=== PATIENT | male | born 1950 | race Caucasian/White ===

== ENCOUNTER 2024-02-02 09:48 | Outpatient (AMB) | payer MEDICARE, SELFPAY ==
--- NOTE | 2024-02-02 10:02 | A.OFFPC_ITS ---
Vital Signs 02/02/24 10:05 Height 5 ft 9 in Weight 175 lb BMI 25.8 BP 128/68 Blood Pressure Location Lt brachial Position Sitting Pulse 71 Pulse Source Pulse Oximeter Pulse Oximetry (%) 95 Oxygen Delivery Method Room Air Intake Visit Reasons: [facility] est care Intake Note: Pt is here today as a New Patient to est care Allergies No Known Allergies Allergy (Verified 02/02/24 10:29) Medication List - Last Reconciled 02/06/24 by Ana Maria Ga MD amlodipine 5 mg PO DAILY ascorbic acid (vitamin C) 500 mg PO DAILY atorvastatin 20 mg PO DAILY azelastine 0.05% drps ophthalmic (eye) calcium brf-zio-S2-Zn-copyright expert-la [phone] bu-xk-mizr-mg 1 tab PO DAILY cholecalciferol (vitamin D3) 25 mcg PO DAILY choline 800 mg PO hydrochlorothiazide 25 mg PO DAILY sertraline 50 mg PO DAILY trazodone 50 mg PO BEDTIME vit C-vit O-Fn-Cg-lutein-zeax 250 mg-200 unit -12.5 mg-1 mg (ICaps AREDS2 (copper citrate)) 1 tab PO BID vitamin B complex 1 tab PO DAILY vitamin E (dl, acetate) 45 mg PO DAILY Tobacco use date assessed: 02/02/24 Fall risk assessment: No Falls in past year Last assessed Fall Risk: 02/02/24 Dental Screening Dental Screen Date: 02/02/24 Did you have a dental visit in the last 12 months?: Yes Did you have a dental problem in the last 6 months where you did not have access to dental care?: No Was dental information given to patient?: Patient has dentist HPI [facility] est care HPI Details 73-year-old male, new to practice, here to establish care with a new PCP. Has hypertension, hyperlipidemia, seasonal allergie, and anxiety depression, currently controlled on present medications. Feels well with no complaints at present time [facility] Medical History (Updated 02/02/24 @ 10:59 by Ana Maria Ga MD) History of right inguinal hernia Anxiety and depression Hyperlipidemia Essential hypertension Surgical History (Updated 02/02/24 @ 10:39 by Ana Maria Ga MD) Hx of colonoscopy Hx of inguinal herniorrhaphy History of appendectomy History of left knee replacement Family History (Updated 02/02/24 @ 10:36 by Ana Maria Ga MD) Father Congenital heart disease Acute myocardial infarction Mother Systemic lupus erythematosus Osteoporosis Social History Housing: House Patient Tobacco Use Status: Former Tobacco user e-Cigarette/Vaping Use: Never Used service: Yes Current occupational status: retired Cognitive needs: No Hearing needs: No Vision needs: Yes Questionnaire PHQ-9 Over the last 2 weeks, how often have you been bothered by any of the following problems? 1. Little interest or pleasure in doing things: not at all 2. Feeling down, depressed, or hopeless: not at all 3. Trouble falling or staying asleep, or sleeping too much: not at all 4. Feeling tired or having little energy: several days 5. Poor appetite or overeating: not at all 6. Feeling bad about yourself - or that you are a failure or have let yourself or your family down: not at all 7. Trouble concentrating on things, such as reading the newspaper or watching television: not at all 8. Moving or speaking so slowly that other people could have noticed. Or the opposite - being so fidgety or restless that you have been moving around a lot more than usual: not at all 9. Thoughts that you would be better off or of hurting yourself in some way: not at all Total score: 1 Depression Screening Interpretation: Negative (Depression controlled on sertra line) Depression Screening Done: Yes 60744 - PHQ-9 Billing: Yes Source: Developed by Drs. Akira Dominguez, Cristiane Landin, Michael Velez and colleagues, with an educational bo from [employer]. Thrive Questionnaire Date Thrive assessed: 02/02/24 I am a: Patient What is your living situation today?: I have a steady place to live Within the past 12 months, did the food you bought not last and you didn't have the money to get more?: Never true Within the past 12 months, did you worry whether your food would run out before you got money to buy more?: Never true Do you have trouble paying for medicines?: No Do you have trouble getting transportation to medical appointments?: No Do you have trouble paying your heating and electricity bill?: No Do you have trouble taking care of your child, family member or friend?: No Do you have trouble with day-to-day activities such as bathing, preparing meals, shopping, managing finances, etc.?: No Are you currently unemployed and looking for a job?: No Are you interested in more education?: No THRIVE Score: 0 AUDIT C Alcohol Use Questionnaire (AUDIT-C) 1. How often do you have a drink containing alcohol?: Never Total Score: 0 DEMI-7 AMB Questionnaire DEMI-7 Date DEMI - 7 assessed: 02/02/24 Feeling nervous, anxious, or on edge: 0 = Not at all Not being able to stop or control worryin = Not at all Worrying too much about different things: 0 = Not at all Trouble relaxin = Not at all Being so restless that it is hard to sit still: 0 = Not at all Becoming easily annoyed or irritable: 0 = Not at all Feeling afraid as if something awful might happen: 0 = Not at all Total DEMI-7 score (0-4 normal; 5-9 mild; 10-14 moderate; 15-21 severe): 0 Source: Developed by Drs. Akira Dominguez, Cristiane Landin, Michael Velez and colleagues, with an educational bo from [employer]. DEMI-7 Assessment Billing DEMI-7 Assessment Tool: DEMI-7 Assessment 95626 Review of Systems Const Denies body aches, Denies fever(s), Denies headache(s) and Denies weakness Eyes Denies change in vision ENT Denies dizziness, Denies headache(s), Denies nasal congestion, Denies nasal discharge and Denies sore throat Card Denies chest pain, Denies lightheadedness, Denies palpitations and Denies dyspnea Resp Denies chest congestion, Denies cough, Denies dyspnea and Denies wheezing GI Denies abdominal pain, Denies change in bowel habits and Denies heartburn Denies hematuria, Denies difficulty urinating, Denies dysuria, Denies urinary frequency and Denies urinary urgency Musc Reports no additional complaints Skin/Breast Denies breast pain, Denies breast mass, Denies lesions and Denies rash Neuro Denies dizziness, Denies headache(s) and Denies weakness Psych Reports no additional complaints Endo Denies polydipsia, Denies polyuria and Denies palpitations Carson/Lymph Denies easy bruising Aller/Immun Denies seasonal rhinorrhea and Denies wheezing Physical exam (Primary Care) Vital Signs: Last Vital Signs Pulse 71 02/02/24 10:05 BP 128/68 02/02/24 10:05 Pulse Ox 95 02/02/24 10:05 Oxygen Delivery Method Room Air 02/02/24 10:05 BMI result Body Mass Index 25.8 Tobacco/Smoking Status: Tobacco use Status Tobacco use date assessed 02/02/24 02/02/24 10:20 Patient Tobacco Use Status Former Tobacco user 02/02/24 10:20 e-Cigarette/Vaping Use Never Used 02/02/24 10:20 PHQ-9: PHQ-9 Score PHQ-9: Total score 1 02/02/24 11:04 Depression Screening Interpretation: Negative (Depression controlled on sertraline) Const General: comfortable, no acute distress and alert Orientation/consciousness: patient oriented x3 HENMT Head: Yes normocephalic Ears: external ears normal, TM's normal bilaterally and EAC's normal General nose exam: Normal external nose present and No nasal discharge present Face and sinus: Yes face symmetric Mouth: Normal oral and palatal mucosa present, oropharynx normal and moist mucous membranes Eyes General: appearance normal, both eyes and all related structures Conjunctivae: conjunctivae normal Sclerae: sclerae normal Pupils: Equal, round and reactive pupils present EOM: EOMs intact bilaterally Neck Neck: Yes full ROM, Yes no lymphadenopathy and Yes supple Chest Chest palpation & inspection: normal inspection of the chest Resp Effort & Inspection: normal respiratory effort and able to speak in complete sentences Auscultation: clear to auscultation bilaterally Cardio Rate: regular rate Rhythm: regular rhythm Heart sounds: S1 normal heart sound present and S2 normal heart sound present GI Palpation (GI): Soft to palpation, nontender and no masses Auscultation: normal bowel sounds Male General Exam: Yes normal external exam Back/Spine/Pelvis Back: No back tenderness Skin General skin exam: no rashes or lesions noted Neuro General: patient oriented x3, gait normal, tone normal, moves all extremities, Normal light touch and pain sensation and no focal motor deficits Cranial nerves: Yes CN's II-XII intact bilaterally and Yes Equal, round and reactive pupils present Cognition (Neuro): normal cognition Extrem General: Yes full ROM, Yes no joint enlargement, Yes no clubbing, cyanosis or edema and Yes no calf tenderness Psych Appearance: grossly normal and well kempt Mental Status: mental status grossly normal Speech and movement: Normal speech and movement present Affect: normal affect Attitude: cooperative Thought process: Normal thought process present Thought content: Normal thought content present, suicidality and no homicidality Assessment and Plan Assessment & Plan (1) Essential hypertension: Code(s): I10 - Essential (primary) hypertension Plan: Blood pressure stable and controlled on amlodipine and hydrochlorothiazide, will continue with present treatment, reinforced importance of following a low-salt diet and getting regular exercise. Comprehensive metabolic panel ordered (2) Hyperlipidemia: Code(s): E78.5 - Hyperlipidemia, unspecified Plan: Fasting lipid ordered currently taking atorvastatin 20 mg daily (3) Anxiety and depression: Code(s): F41.9 - Anxiety disorder, unspecified; F32.A - Depression, unspecified Plan: Stable controlled on sertraline and trazodone Orders: Orders Creatine Kinase Total 02/05/24 E78.5 - Hyperlipidemia, unspecified, I10 - Essential (primary) hypertension PSA,Total (Free>4and<10) 02/05/24 E78.5 - Hyperlipidemia, unspecified, I10 - Essential (primary) hypertension Vitamin B12 and Folate 02/05/24 E78.5 - Hyperlipidemia, unspecified, I10 - Essential (primary) hypertension Comprehensive [place]. Panel Fast 02/05/24 E78.5 - Hyperlipidemia, unspecified, I10 - Essential (primary) hypertension Complete Blood Count Auto Diff 02/05/24 E78.5 - Hyperlipidemia, unspecified, I10 - Essential (primary) hypertension Vitamin D 25-OH Total 02/05/24 E78.5 - Hyperlipidemia, unspecified, I10 - Essential (primary) hypertension Lipid Panel 02/05/24 E78.5 - Hyperlipidemia, unspecified, I10 - Essential (primary) hypertension Coding Level of Care Code New Pt Level 4 (13503) Diagnoses Essential hypertension I10 Hyperlipidemia E78.5 Anxiety and depression F41.9; F32.A Additional Codes DEMI-7 Assessment Billing - DEMI-7 Assessment Tool: DEMI-7 Assessment [id number] ([id number])
[2024-02-02 10:05] VITALS: BP 128/68; PULSE 71; O2SAT 95; BMI 25.8
== END 2024-02-02 11:08 | disposition home or self-care (01) ==
PROVIDERS: PCP Internal Medicine; Visit Provider Internal Medicine
DX: I10 Essential (primary) hypertension (principal); E78.5 Hyperlipidemia, unspecified; F41.9 Anxiety disorder, unspecified; F32.A Depression, unspecified
CPT/HCPCS: 99204

== ENCOUNTER 2024-02-05 09:05 | Outpatient (REF) | payer MEDICARE, SELFPAY ==
[2024-02-05 11:10] LABS: MANUAL DIFF FLAG NO
[2024-02-05 11:13] LABS: Basophils Absolute Auto 0.1 X10*3/uL (0.0-0.2); Basophils Percent Auto 0.7 % (0-2); Eosinophils Absolute Auto 0.2 X10*3/uL (0.0-0.4); Hemoglobin 12.5 g/dl (14.0-18.0); Imm Gran Abs Auto 0.01 X10*3/uL (0.00-0.03); Imm Gran Pct Auto 0.1 % (0.0-0.4); Lymphocytes Absolute Auto 1.9 X10*3/uL (1.2-4.9); Lymphocytes Percent Auto 29.1 % (20-40); Mean Corpuscular HGB Conc 32.9 g/dl (31.0-36.0); Mean Corpuscular Hemoglobin 30.8 pg (27.0-33.0); Mean Corpuscular Volume 93.6 fL (80.0-98.0); Mean Platelet Volume 10.5 fL (9.4-12.4); Monocytes Absolute Auto 0.6 X10*3/uL (0.1-1.2); Monocytes Percent Auto 8.8 % (2-11); Neutrophils Absolute Auto 3.9 x10*3/uL (2.0-8.3); Neutrophils Percent Auto 58.3 % (45-73); Platelet Count 223 X10*3/uL (160-400); Red Blood Count 4.06 X10*6/uL (4.60-5.80); Red Cell Distribution Width 14.6 % (11.0-16.0); White Blood Count 6.7 X10*3/uL (4.8-10.8)
[2024-02-05 11:32] LABS: Alanine Aminotransferase 27 U/L (0-40); Albumin Level 4.7 g/dL (3.5-5.0); Alkaline Phosphatase 71 U/L (39-117); Anion Gap 12 (12-20); Aspartate Amino Transferase 28 U/L (5-37); Bilirubin Total 0.9 mg/dL (0.0-1.0); Blood Urea Nitrogen 24 mg/dL (9-16); Calcium 9.9 mg/dL (8.4-10.2); Carbon Dioxide 28 mmol/L (22-29); Chloride 106 mmol/L (96-108); Cholesterol 155 mg/dL (<200); Estimated Glomerular Filt Rate > 60; Glucose Fasting 94 mg/dL (60-99); HDL Cholesterol 40 mg/dL (>40); LDL Cholesterol Calculated 98 mg/dL (<100); Potassium 3.8 mmol/L (3.3-5.1); Sodium 142 mmol/L (135-145); Total Protein 8.1 g/dL (6.5-8.0); Triglycerides 86 mg/dL (<150)
[2024-02-05 11:49] LABS: Vitamin D 25-OH Total 53.1 ng/mL (>30)
[2024-02-05 11:56] LABS: PSA,Total (Free>4and<10) 3.57 ng/mL (0.00-4.00)
[2024-02-05 12:11] LABS: Vitamin B12 924 pg/mL (200-900)
== END 2024-02-05 09:06 | disposition home or self-care (01) ==
LOC: HO.HMGCLDS 09:05
PROVIDERS: PCP Internal Medicine; Visit Provider Internal Medicine
DX: I10 Essential (primary) hypertension (principal); E78.5 Hyperlipidemia, unspecified; Z12.5 Encounter for screening for malignant neoplasm of prostate
CPT/HCPCS: 36415; 80053; 80061; 82306; 82550; 82607; 82746; 84153; 85025

== ENCOUNTER 2024-09-05 07:55 | Outpatient (REF) | payer MEDICARE, SELFPAY ==
--- OUTSIDE RECORDS SUMMARY | 2024-09-05 10:40 | XMS_ITS | Continuity of Care Document ---
Author Name [facility] Organization [facility] Care Team Providers Care Employment Attorney Name Role Phone [facility] Unavailable Unavailable Problems Combined list of problems from Department of Defense and Veterans Affairs facilities. It does not include entries that were removed or entered in error. Problem Status Onset Date Problem Type Date of Resolution Comments Source Benign essential hypertension Active Condition [facility] Active Condition [place] HTN - Hypertension [facility] 27471618[facility] Active Condition [facility] Hyperlipidemia Active Condition [facility] Hyperlipidemia [facility] 52714788[facility] Active Condition [place] [facility] Keratosis Active Condition [place] Obesity Active Condition [facility] Under care of multiple providers Active Condition Oct 03 Entered By: DANILO LUEVANO Comment: [place] non [place] PCP: Ketty bartholomew 12/2023 P: [phone] Oct 04, 2023 Entered By: DANILO LUEVANO Comment: [facility] PCP: Ana Maria dee 01/2024 P: [phone] Oct 04, 2023 Entered By: DANILO LUEVANO Comment: Optometry: Bucky Alatorre P: [phone] [facility] [place] [facility] Urinary frequency Active Condition [facility] Diagnosis: ICD-10-CM I10 Essential (primary) hypertension Active Diagnosis [place] Diagnosis: ICD-10-CM L82.1 Other seborrheic keratosis Active Diagnosis [facility] Diagnosis: ICD-10-CM Z13.89 Encounter for screening for other disorder Active Diagnosis [facility] Medications Combined list of outpatient medications [...] ACTIVE REGIS GARY K 2017 [facility] AMLODIPINE BESYLATE 5MG TAB TAKE ONE TABLET BY MOUTH ONCE DAILY ORAL ACTIVE [place] spring IELD ASCORBIC ACID 500MG TAB TAKE ONE TABLET BY MOUTH ONCE DAILY ORAL ACTIVE [place] spring IELD ATORVASTATI N CA 40MG TAB TAKE ONE-HALF TABLET BY MOUTH ONCE DAILY ORAL ACTIVE [place] [facility] spring IELD CYANOCOBALA MIN TAB TAKE BY MOUTH ORAL ACTIVE [place] 2023 [facility] IELD HYDROCHLORO THIAZIDE 25MG TAB TAKE ONE TABLET BY MOUTH EVERY MORNING ORAL ACTIVE GARY,UDA Y K 2017 [facility] HYDROCHLORO THIAZIDE 25MG TAB TAKE ONE TABLET BY MOUTH ONCE DAILY ORAL ACTIVE [place] spring IELD MULTIVITAMI NS CAP/TAB TAKE ONE TABLET BY MOUTH ONCE DAILY ORAL ACTIVE GARY,UDA Y K 2017 [facility] SERTRALINE HCL 100MG TAB TAKE ONE-HALF TABLET BY MOUTH ONCE DAILY ORAL ACTIVE [place] spring IELD TRAZODONE HCL 100MG TAB TAKE ONE-HALF TABLET BY MOUTH ONCE DAILY ORAL ACTIVE [place] 2023 [facility] IELD VITAMIN D3 (CHOLECALCI FEROL) TAB TAKE BY MOUTH ONCE DAILY ORAL ACTIVE [place] [facility] spring IELD VITAMIN E CAP,ORAL TAKE BY MOUTH ORAL ACTIVE [place] 2023 [facility] IELD Immunizations Combined list of available immunizations from the Department of Defense and Veterans Affairs facilities. 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 Comments Source INFLUENZA, UNSPECIFIED FORMULATION 2023 88 complet ed [facility] [place] [facility] [facility] TDAP 2023 MATTIE VIVAS RIGHT DELTO ID [id number] 115 complet ed [facility] IELD INFLUENZA, UNSPECIFIED FORMULATION 2022 88 complet ed [facility] [place] [facility] INFLUENZA, SEASONAL, INJECTABLE 2017 141 complet ed [facility] INFLUENZA, SEASONAL, INJECTABLE 2016 141 complet ed Site: Left Deltoid [facility] Results Combined list of [...] Oct 01, 2023 12:05 PM Reporting Lab: [address] [address] Performing Lab: [address] [address] [employer] HIV 1&2 Ag/Ab SCREEN HIV 1+2 AB+HIV1 P24 AG [PRESENCE] IN SERUM OR PLASMA BY IMMUNOASSAY NON-RE ACTIVE 11/04 Specimen Type: SERUM No comment entered. Ordering Provider: GEORGIA LUEVANO Report Released Date/Time: Oct 01, 2023 12:05 PM Reporting Lab: [address] [address] Performing Lab: [address] [address] [employer] [place] BASIC METABOLIC PANEL (fasting) UREA NITROGEN [MASS/VOLUM E] IN SERUM OR PLASMA 17 mg/dL 7 - 25 11/04 Specimen Type: SERUM No comment entered. Ordering Provider: GEORGIA LUEVANO Report Released Date/Time: Oct 01, 2023 12:05 PM Reporting Lab: [address] [address] Performing Lab: [address] [address] [employer] [place] BASIC METABOLIC PANEL (fasting) GLUCOSE [MASS/VOLUM E] IN SERUM OR PLASMA 106 mg/dL 65 - 100 11/04 H Specimen Type: SERUM No comment entered. Ordering Provider: GEORGIA LUEVANO Report Released Date/Time: Oct 01, 2023 12:05 PM Reporting Lab: [address] [address] Performing Lab: [address] [address] [place] BASIC METABOLIC PANEL (fasting) SODIUM [MOLES/VOLU ME] IN SERUM OR PLASMA 143 mmol/L 135 - 145 11/04 Specimen Type: SERUM No comment entered. Ordering Provider: GEORGIA LUEVANO Report Released Date/Time: Oct 01, 2023 12:05 PM Reporting Lab: [address] [address] Performing Lab: [address] [address] [employer] [place] BASIC METABOLIC PANEL (fasting) POTASSIUM [MOLES/VOLU ME] IN SERUM OR PLASMA 3.9 mmol/L 3.5 - 5.0 11/04 Specimen Type: SERUM No comment entered. Ordering Provider: GEORGIA LUEVANO Report Released Date/Time: Oct 01, 2023 12:05 PM Reporting Lab: [address] [address] Performing Lab: [address] [address] [employer] [place] BASIC METABOLIC PANEL (fasting) CHLORIDE [MOLES/VOLU ME] IN SERUM OR PLASMA 107 mmol/L 100 - 110 11/04 Specimen Type: SERUM No comment entered. Ordering Provider: GEORGIA LUEVANO Report Released Date/Time: Oct 01, 2023 12:05 PM Reporting Lab: [address] [address] Performing Lab: [address] [address] [place] BASIC METABOLIC PANEL (fasting) CARBON DIOXIDE, TOTAL [MOLES/VOLU ME] IN SERUM OR PLASMA 26 meq/L 20 - 30 11/04 Specimen Type: SERUM No comment entered. Ordering Provider: GEORGIA LUEVANO Report Released Date/Time: Oct 01, 2023 12:05 PM Reporting Lab: [facility] [address] [address] Performing Lab: [address] [address] [employer] [place] BASIC METABOLIC PANEL (fasting) CREATININE [MASS/VOLUM E] IN SERUM OR PLASMA 1.15 mg/dL 0.50 - 1.40 11/04 Specimen Type: SERUM No comment entered. Ordering Provider: GEORGIA LUEVANO Report Released Date/Time: Oct 01, 2023 12:05 PM Reporting Lab: [address] [address] Performing Lab: [address] [address] [employer] [place] BASIC METABOLIC PANEL (fasting) GLOMERULAR FILTRATION RATE/1.73 SQ M.PREDICTED [VOLUME RATE/AREA] IN SERUM, PLASMA OR BLOOD BY CREATININE- BASED FORMULA (CKD-EPI 2020) 68 mL/min 60 11/04 Specimen Type: SERUM No comment entered. Ordering Provider: GEORGIA LUEVANO Report Released Date/Time: Oct 01, 2023 12:05 PM Reporting Lab: [address] [address] Performing Lab: [facility] [address] [address] [employer] [place] CBC AND DIFF (AUTO) LEUKOCYTES [#/VOLUME] IN BLOOD BY AUTOMATED COUNT 5.07 10*3/u L 4.50 - 11.00 11/04 Specimen Type: BLOOD No comment entered. Ordering Provider: GEORGIA LUEVANO Report Released Date/Time: Oct 01, 2023 12:05 PM Reporting Lab: [address] [address] Performing Lab: [facility] [place] [address] [facility] [address] [place] CBC AND DIFF (AUTO) ERYTHROCYTE S [#/VOLUME] IN BLOOD BY AUTOMATED COUNT 4.11 10*6/u L 4.23 - 5.66 11/04 L Specimen Type: BLOOD No comment entered. Ordering Provider: GEORGIA LUEVANO Report Released Date/Time: Oct 01, 2023 12:05 PM Reporting Lab: [facility] [place] [facility] [address] [facility] [address] Performing Lab: [facility] [place] [address] [address] [place] CBC AND DIFF (AUTO) HEMOGLOBIN [MASS/VOLUM E] IN BLOOD 12.6 g/dL 12.8 - 17 11/04 L Specimen Type: BLOOD No comment entered. Ordering Provider: GEORGIA LUEVANO Report Released Date/Time: Oct 01, 2023 12:05 PM Reporting Lab: [facility] [place] [address] [address] Performing Lab: [facility] [place] [address] [address] [place] CBC AND DIFF (AUTO) HEMATOCRIT [VOLUME FRACTION] OF BLOOD BY AUTOMATED COUNT 38.3 39.2 - 50.4 11/04 L Specimen Type: BLOOD No comment entered. Ordering Provider: GEORGIA LUEVANO Report Released Date/Time: Oct 01, 2023 12:05 PM Reporting Lab: [facility] [place] [address] [address] Performing Lab: [facility] [place] [address] [address] [place] CBC AND DIFF (AUTO) MCV [ENTITIC VOLUME] BY AUTOMATED COUNT 93.2 fL 82 - 99 11/04 Specimen Type: BLOOD No comment entered. Ordering Provider: GEORGIA LUEVANO Report Released Date/Time: Oct 01, 2023 12:05 PM Reporting Lab: [facility] [place] [address] [address] Performing Lab: [facility] [place] [facility] [address] [facility] [address] [place] CBC AND DIFF (AUTO) MCHC [MASS/VOLUM E] BY AUTOMATED COUNT 32.9 g/dL 30.8 - 35.1 11/04 Specimen Type: BLOOD No comment entered. Ordering Provider: GEORGIA LUEVANO Report Released Date/Time: Oct 01, 2023 12:05 PM Reporting Lab: [facility] [place] [address] [address] Performing Lab: [facility] [address] [place] CBC AND DIFF (AUTO) PLATELETS [#/VOLUME] IN BLOOD BY AUTOMATED COUNT 220 10*3/u L 140 - 360 11/04 Specimen Type: BLOOD No comment entered. Ordering Provider: GEORGIA LUEVANO Report Released Date/Time: Oct 01, 2023 12:05 PM Reporting Lab: [facility] [address] [address] Performing Lab: [facility] [address] [address] [place] CBC AND DIFF (AUTO) ERYTHROCYTE DISTRIBUTIO N WIDTH [RATIO] BY AUTOMATED COUNT 14.1 12.0 - 16.0 11/04 Specimen Type: BLOOD No comment entered. Ordering Provider: GEORGIA LUEVANO Report Released Date/Time: Oct 01, 2023 12:05 PM Reporting Lab: [facility] [place] [address] [address] Performing Lab: [facility] [address] [address] [place] CBC AND DIFF (AUTO) MONOCYTES [#/VOLUME] IN BLOOD BY AUTOMATED COUNT 0.49 10*3/u L 0.30 - 1.10 11/04 Specimen Type: BLOOD No comment entered. Ordering Provider: GEORGIA LUEVANO Report Released Date/Time: Oct 01, 2023 12:05 PM Reporting Lab: [facility] [address] [address] Performing Lab: [facility] [place] [facility] [address] [facility] [address] [place] CBC AND DIFF (AUTO) MCH [ENTITIC MASS] BY AUTOMATED COUNT 30.7 pg 26.2 - 32.6 11/04 Specimen Type: BLOOD No comment entered. Ordering Provider: GEORGIA LUEVANO Report Released Date/Time: Oct 01, 2023 12:05 PM Reporting Lab: [facility] [place] [address] [address] Performing Lab: [facility] [place] [address] [address] [place] CBC AND DIFF (AUTO) NEUTROPHILS /100 LEUKOCYTES IN BLOOD BY AUTOMATED COUNT 48.8 43.7 - 75.8 11/04 Specimen Type: BLOOD No comment entered. Ordering Provider: GEORGIA LUEVANO Report Released Date/Time: Oct 01, 2023 12:05 PM Reporting Lab: [facility] [place] [address] [address] Performing Lab: [facility] [place] [address] [address] [place] CBC AND DIFF (AUTO) LYMPHOCYTES /100 LEUKOCYTES IN BLOOD BY AUTOMATED COUNT 37.5 14.0 - 42.3 11/04 Specimen Type: BLOOD No comment entered. Ordering Provider: GEORGIA LUEVANO Report Released Date/Time: Oct 01, 2023 12:05 PM Reporting Lab: [facility] [place] [address] [address] Performing Lab: [facility] [place] [address] [address] [place] CBC AND DIFF (AUTO) MONOCYTES/1 00 LEUKOCYTES IN BLOOD BY AUTOMATED COUNT 9.7 5.1 - 13.7 11/04 Specimen Type: BLOOD No comment entered. Ordering Provider: GEORGIA LUEVANO Report Released Date/Time: Oct 01, 2023 12:05 PM Reporting Lab: [facility] [place] [address] [address] Performing Lab: [facility] [address] [facility] [address] [place] CBC AND DIFF (AUTO) EOSINOPHILS /100 LEUKOCYTES IN BLOOD BY AUTOMATED COUNT 3.2 0.4 - 6.8 11/04 Specimen Type: BLOOD No comment entered. Ordering Provider: GEORGIA LUEVANO Report Released Date/Time: Oct 01, 2023 12:05 PM Reporting Lab: [facility] [address] [address] Performing Lab: [facility] [address] [place] CBC AND DIFF (AUTO) BASOPHILS/1 00 LEUKOCYTES IN BLOOD BY AUTOMATED COUNT 0.6 0.1 - 2.0 11/04 Specimen Type: BLOOD No comment entered. Ordering Provider: GEORGIA LUEVANO Report Released Date/Time: Oct 01, 2023 12:05 PM Reporting Lab: [facility] [address] Performing Lab: [facility] [address] [place] CBC AND DIFF (AUTO) NEUTROPHILS [#/VOLUME] IN BLOOD BY AUTOMATED COUNT 2.48 10*3/u L 2.20 - 7.60 11/04 Specimen Type: BLOOD No comment entered. Ordering Provider: GEORGIA LUEVANO Report Released Date/Time: Oct 01, 2023 12:05 PM Reporting Lab: [facility] [address] Performing Lab: [facility] [address] [place] CBC AND DIFF (AUTO) LYMPHOCYTES [#/VOLUME] IN BLOOD BY AUTOMATED COUNT 1.90 10*3/u L 1.00 - 3.20 11/04 Specimen Type: BLOOD No comment entered. Ordering Provider: GEORGIA LUEVANO Report Released Date/Time: Oct 01, 2023 12:05 PM Reporting Lab: [facility] [address] Performing Lab: [facility] [address] [facility] [address] [place] CBC AND DIFF (AUTO) EOSINOPHILS [#/VOLUME] IN BLOOD BY AUTOMATED COUNT 0.16 10*3/u L 0.03 - 0.44 11/04 Specimen Type: BLOOD No comment entered. Ordering Provider: GEORGIA LUEVANO Report Released Date/Time: Oct 01, 2023 12:05 PM Reporting Lab: [facility] [address] Performing Lab: [facility] [address] [address] [place] CBC AND DIFF (AUTO) BASOPHILS [#/VOLUME] IN BLOOD BY AUTOMATED COUNT 0.03 10*3/u L 0.01 - 0.13 11/04 Specimen Type: BLOOD No comment entered. Ordering Provider: GEORGIA LUEVANO Report Released Date/Time: Oct 01, 2023 12:05 PM Reporting Lab: [facility] [address] Performing Lab: [facility] [address] [place] CBC AND DIFF (AUTO) IMMATURE GRANULOCYTE S/100 LEUKOCYTES IN BLOOD BY AUTOMATED COUNT 0.2 0.0 - 0.7 11/04 Specimen Type: BLOOD No comment entered. Ordering Provider: GEORGIA LUEVANO Report Released Date/Time: Oct 01, 2023 12:05 PM Reporting Lab: [facility] [address] Performing Lab: [facility]TR[facility] [address] [place] CBC AND DIFF (AUTO) IMMATURE GRANULOCYTE S [#/VOLUME] IN BLOOD 0.01 10*3/u L 0.00 - 0.06 11/04 Specimen Type: BLOOD No comment entered. Ordering Provider: GEORGIA LUEVANO Report Released Date/Time: Oct 01, 2023 12:05 PM Reporting Lab: [address] [address] Performing Lab: [address] [address] [place] HEMOGLOBI N A1C PANEL HEMOGLOBIN A1C/HEMOGLO [...] Oct 01, 2023 12:05 PM Reporting Lab: [address] [address] Performing Lab: [address] [address] [place] LIPID PANEL FASTING CHOLESTEROL [MASS/VOLUM E] IN SERUM OR PLASMA 131 mg/dL 11/04 Specimen Type: SERUM No comment entered. Ordering Provider: GEORGIA LUEVANO Report Released Date/Time: Oct 01, 2023 12:05 PM Reporting Lab: [address] [address] Performing Lab: [address] [address] [place] LIPID PANEL FASTING TRIGLYCERID E [MASS/VOLUM E] IN SERUM OR PLASMA 207 mg/dL 0 - 150 11/04 H Specimen Type: SERUM No comment entered. Ordering Provider: GEORGIA LUEVANO Report Released Date/Time: Oct 01, 2023 12:05 PM Reporting Lab: [address] [address] Performing Lab: [address] [address] [place] LIPID PANEL FASTING CHOLESTEROL IN LDL [MASS/VOLUM E] IN SERUM OR PLASMA BY CALCULATION 58 mg/dL 0 - 129 11/04 Specimen Type: SERUM No comment entered. Ordering Provider: GEORGIA LUEVANO Report Released Date/Time: Oct 01, 2023 12:05 PM Reporting Lab: [address] [address] Performing Lab: [address] [address] [place] LIPID PANEL FASTING CHOLESTEROL .TOTAL/CHOL ESTEROL IN HDL [MASS RATIO] IN SERUM OR PLASMA 4.1 11/04 Specimen Type: SERUM No comment entered. Ordering Provider: GEORGIA LUEVANO Report Released Date/Time: Oct 01, 2023 12:05 PM Reporting Lab: [address] [address] Performing Lab: [address] [address] [place] LIPID PANEL FASTING CHOLESTEROL IN HDL [MASS/VOLUM E] IN SERUM OR PLASMA 32 mg/dL 40 - 60 11/04 L Specimen Type: SERUM No comment entered. Ordering Provider: GEORGIA LUEVANO Report Released Date/Time: Oct 01, 2023 12:05 PM Reporting Lab: [address] [address] Performing Lab: [address] [address] [place] LIVER FUNCTION PROTEIN [MASS/VOLUM E] IN SERUM OR PLASMA 7.3 g/dL 6.0 - 8.3 11/04 Specimen Type: SERUM No comment entered. Ordering Provider: GEORGIA LUEVANO Report Released Date/Time: Oct 01, 2023 12:05 PM Reporting Lab: [facility] [address] [address] Performing Lab: [address] [address] [place] LIVER FUNCTION ALBUMIN [MASS/VOLUM E] IN SERUM OR PLASMA 3.9 g/dL 3.5 - 5.0 11/04 Specimen Type: SERUM No comment entered. Ordering Provider: GEORGIA LUEVANO Report Released Date/Time: Oct 01, 2023 12:05 PM Reporting Lab: [facility] [place] [address] [address] Performing Lab: [facility] [address] [address] [place] LIVER FUNCTION ALKALINE PHOSPHATASE [ENZYMATIC ACTIVITY/VO LUME] IN SERUM OR PLASMA 87 U/L 40 - 150 11/04 Specimen Type: SERUM No comment entered. Ordering Provider: GEORGIA LUEVANO Report Released Date/Time: Oct 01, 2023 12:05 PM Reporting Lab: [facility] [address] [address] Performing Lab: [facility] [address] [address] [place] LIVER FUNCTION ASPARTATE AMINOTRANSF ERASE [ENZYMATIC ACTIVITY/VO LUME] IN SERUM OR PLASMA 40 U/L 5 - 34 11/04 H Specimen Type: SERUM No comment entered. Ordering Provider: GEORGIA LUEVANO Report Released Date/Time: Oct 01, 2023 12:05 PM Reporting Lab: [facility] [address] [address] Performing Lab: [facility] [address] [address] [place] LIVER FUNCTION ALANINE AMINOTRANSF ERASE [ENZYMATIC ACTIVITY/VO LUME] IN SERUM OR PLASMA 31 U/L 11/04 Specimen Type: SERUM No comment entered. Ordering Provider: GEORGIA LUEVANO Report Released Date/Time: Oct 01, 2023 12:05 PM Reporting Lab: [facility] [address] [address] Performing Lab: [facility] [address] [place] LIVER FUNCTION BILIRUBIN.T OTAL [MASS/VOLUM E] IN SERUM OR PLASMA 0.5 mg/dL 0.2 - 1.2 11/04 Specimen Type: SERUM No comment entered. Ordering Provider: GEORGIA LUEVANO Report Released Date/Time: Oct 01, 2023 12:05 PM Reporting Lab: [address] [address] Performing Lab: [address] [address] [place] TSH THYROTROPIN [UNITS/VOLU ME] IN SERUM OR PLASMA 1.63 u[IU]/ mL 0.35 - 5.00 11/04 Specimen Type: SERUM No comment entered. Ordering Provider: GEORGIA LUEVANO Report Released Date/Time: Oct 01, 2023 12:05 PM Reporting Lab: [address] [address] Performing Lab: [address] [address] [place] VITAMIN B12 COBALAMIN (VITAMIN B12) [MASS/VOLUM E] IN SERUM OR PLASMA 961 pg/mL 200 - 900 11/04 H Specimen Type: SERUM No comment entered. Ordering Provider: GEORGIA LUEVANO Report Released Date/Time: Oct 01, 2023 12:05 PM Reporting Lab: [address] [address] Performing Lab: [address] [address] [place] VITAMIN D 25-OH (Therapy monitor) 25-HYDROXYV ITAMIN [...] additional information , please refer to [email or web address] P377 (This link is being provided for information al/ educational purposes only.) This test was developed and its analytical performance characteris tics have been determined by [facility] [place]. It has not been cleared or approved by the U.S. Food and Drug Administrat ion. This assay has been validated pursuant to the CLIA regulations and is used for clinical purposes. This test was developed and its analytical performance characteris tics have been determined by [facility] [place] It has not been cleared or approved by the U.S. Food and Drug Administrat ion. This assay has been validated pursuant to the CLIA regulations and is used for clinical purposes. [facility], [facility], [address] [place] [address] Yoan Bach M.D., Ph.D., Director of Laboratorie s , CLIA [id number] TEST PERFORMED AT: , Ordering Provider: GEORGIA LUEVANO Report Released Date/Time: Oct 01, 2023 12:05 PM Reporting Lab: [facility] [employer] [facility] [address] [facility] [address] Performing Lab: [facility] [employer] [facility] [address] [address] [facility] VITAMIN D 25-OH (Therapy monitor) 25-HYDROXYV ITAMIN [...] additional information , please refer to [email or web address] [email or web address] (This link is being provided for information al/ educational purposes only.) This test was developed and its analytical performance characteris tics have been determined by [facility] [place]. It has not been cleared or approved by the U.S. Food and Drug Administrat ion. This assay has been validated pursuant to the CLIA regulations and is used for clinical purposes. This test was developed and its analytical performance characteris tics have been determined by [facility] [place]. It has not been cleared or approved by the U.S. Food and Drug Administrat ion. This assay has been validated pursuant to the CLIA regulations and is used for clinical purposes. Test [facility] by [facility], [facility], [address] [place] [address] Yoan Bach M.D., Ph.D., Director of Laboratorie s , CLIA [id number] TEST PERFORMED AT: , Ordering Provider: GEORGIA LUEVANO Report Released Date/Time: Oct 01, 2023 12:05 PM Reporting Lab: [facility] [address] [facility] [address] Performing Lab: [facility] [address] [address] [facility] [facility] D 25-OH (Therapy monitor) [...] additional information , please refer to [email or web address] Doctor [email or web address]/faq/FA [email or web address] (This link is being provided for information al/ educational purposes only.) This test was developed and its analytical performance characteris tics have been determined by [facility] [place] [place]. It has not been cleared or approved by the U.S. Food and Drug Administrat ion. This assay has been validated pursuant to the CLIA regulations and is used for clinical purposes. This test was developed and its analytical performance characteris tics have been determined by [facility] [place] [place]. It has not been cleared or approved by the U.S. Food and Drug Administrat ion. This assay has been validated pursuant to the CLIA regulations and is used for clinical purposes. [facility], [facility], [address] [place] [address] Yoan Bach M.D., Ph.D., Director of Laboratorie s , CLIA [id number] TEST PERFORMED AT: , Ordering Provider: GEORGIA LUEVANO Report Released Date/Time: Oct 01, 2023 12:05 PM Reporting Lab: [facility] [address] [facility] [id number] Performing Lab: [facility] [address] [address] [facility] Vital Signs Combined list of inpatient and outpatient Vital Signs from Department of Defense and Veterans Affairs, ranging from 12 months to all on record, depending upon the facility. Vital Sign Value Date Comments Source SYSTOLIC BLOOD PRESSURE 163 05/05/2024 10:00:43 [place] DIASTOLIC BLOOD PRESSURE 88 05/05/2024 10:00:43 [place] PULSE OXIMETRY 96 05/05/2024 10:00:43 [place] WEIGHT 200 05/05/2024 10:00:43 [facility] BMI 30 kg/m2 05/05/2024 10:00:43 [facility] PULSE 71 05/05/2024 10:00:43 [facility] SYSTOLIC BLOOD PRESSURE 142 02/01/2024 14:40:00 [place] DIASTOLIC BLOOD PRESSURE 92 02/01/2024 14:40:00 [place] PULSE 68 02/01/2024 14:40:00 [place] SYSTOLIC BLOOD PRESSURE 157 01/03/2024 13:04:04 [place] DIASTOLIC BLOOD PRESSURE 83 01/03/2024 13:04:04 [place] PULSE OXIMETRY 95 01/03/2024 13:04:04 [place] WEIGHT 196 01/03/2024 13:04:04 [place] BMI 30 kg/m2 01/03/2024 13:04:04 [place] PULSE 74 01/03/2024 13:04:04 [place] SYSTOLIC BLOOD PRESSURE 149 11/05/2023 10:53:44 [place] DIASTOLIC BLOOD PRESSURE 85 11/05/2023 10:53:44 [place] PULSE OXIMETRY 97 11/05/2023 10:53:44 [place] WEIGHT 203 11/05/2023 10:53:44 [place] BMI 31 kg/m2 11/05/2023 10:53:44 [place] HEIGHT 68 11/05/2023 10:53:44 [place] PULSE 75 11/05/2023 10:53:44 [place] SYSTOLIC BLOOD PRESSURE 137 10/01/2023 11:36:36 [place] DIASTOLIC BLOOD PRESSURE 72 10/01/2023 11:36:36 [place] PULSE OXIMETRY 98 10/01/2023 11:36:36 [place] [...] ADM Date DC Date Status Disposition Source [facility] Outpatient Encounter [id number] 05/26 [facility] [place] [facility] En[facility] [id number] 09/21 [facility] [id number] 09/22 [facility] Encounter [id number] 09/30 [facility] [place] [place] [facility] OFFICE O/P NEW MOD 45 MIN [id number] Diagnos is: ICD-10- CM I10 Essenti al (primar y) hyperte nsion STELEA,CAR MEN F 09/30 [place] [facility] En[facility] [id number] 09/30 [facility] En[facility] [id number] 09/30 [facility] En[facility] [id number] 09/30 [facility] Encounter [id number] 10/07 [facility] [place] [facility] UNLISTED SPEC DERM SVC/PX [id number] Diagnos is: ICD-10- CM Z13.89 Encount er for screeni ng for other disorde r Tawanna TOMAS 10/14 [facility] [place] [facility] Encounter [id number] 10/14 [facility] [place] [facility] Outpatient Encounter [id number] Diagnos is: ICD-10- CM L82.1 Other seborrh eic keratos is LEANNE BRADEN Salma 10/17 [facility] Encounter [id number] 10/17 [facility] En[facility] [id number] 10/18 [facility] En[facility] [id number] 10/19 [facility] [place] OFFICE O/P EST LOW 20 MIN [id number] Diagnos is: ICD-10- CM I10 Essenti al (primar y) hyperte nsbriana LUEVANO,CAR MEN F 11/04 [place] [facility] Out[facility] Encounter [id number] 11/15 [facility] En[facility] [id number] 11/24 [facility] [place] OFF[facility] O/P EST MOD 30 MIN [id number] Diagnos is: ICD-10- CM I10 Essenti al (primar y) hyperte nsbriana LUEVANO,CAR MEN F 01/02 [place] OFF/OP EST MAY X REQ PHY/QHP [id number] Diagnos is: ICD-10- CM I10 Essenti al (primar y) hyperte WILL Tran 01/31 [place] [facility] Out[facility] Encounter [id number] 04/05 [facility] [place] OFF[facility] O/P EST MOD 30 MIN [id number] Diagnos is: ICD-10- CM I10 Essenti al (primar y) hyperte nsbriana LUEVANOCAR MEN F 05/05 [place] [facility] Outpatient Encounter [id number] 07/21 [facility] [place] [facility] Outpatient [facility]counter [id number] 07/25 [facility] [place] [facility] Outpatient Encounter [id number] 08/10 [facility] [place] [place] [facility] Social History Combined list of available smoking, tobacco, and other social history from Department of Defense and Veterans Affairs facilities. Social History Type Response Date Comment Sour e Tobacco smoking status [facility] VA-TOBACCO NEVER USED 10/01/2023 [facility] [place] [facility] History of tobacco use VA-TOBACCO FORMER USER 07/12/2018 [facility] History of tobacco use LIFETIME NON-TOBACCO USER 07/13/2017 [facility] Advance Directives List of completed, amended, or rescinded Advance Directives on record at Department of Veterans Affairs facilities. An actual copy of the Directive is not included. Date Advance Directive Provider Source 10/15[facility]2023 [facility]
[2024-09-05 13:03] LABS: MANUAL DIFF FLAG NO
[2024-09-05 13:21] LABS: Basophils Percent Auto 0.5 % (0-2); Eosinophils Absolute Auto 0.2 X10*3/uL (0.0-0.4); Eosinophils Percent Auto 2.7 % (0-4); Hematocrit 40.7 % (42.0-52.0); Hemoglobin 13.6 g/dl (14.0-18.0); Imm Gran Abs Auto 0.01 X10*3/uL (0.00-0.03); Imm Gran Pct Auto 0.2 % (0.0-0.4); Lymphocytes Absolute Auto 2.7 X10*3/uL (1.2-4.9); Lymphocytes Percent Auto 43.2 % (20-40); Mean Corpuscular HGB Conc 33.4 g/dl (31.0-36.0); Mean Corpuscular Hemoglobin 31.6 pg (27.0-33.0); Mean Corpuscular Volume 94.4 fL (80.0-98.0); Mean Platelet Volume 10.2 fL (9.4-12.4); Monocytes Absolute Auto 0.6 X10*3/uL (0.1-1.2); Monocytes Percent Auto 9.8 % (2-11); Neutrophils Absolute Auto 2.8 x10*3/uL (2.0-8.3); Neutrophils Percent Auto 43.6 % (45-73); Platelet Count 242 X10*3/uL (160-400); Red Blood Count 4.31 X10*6/uL (4.60-5.80); Red Cell Distribution Width 14.2 % (11.0-16.0); White Blood Count 6.3 X10*3/uL (4.8-10.8)
[2024-09-05 13:35] LABS: Alanine Aminotransferase 40 U/L (0-40); Anion Gap 10 (12-20); Aspartate Amino Transferase 40 U/L (5-37); Blood Urea Nitrogen 14 mg/dL (9-16); Calcium 9.7 mg/dL (8.4-10.2); Carbon Dioxide 28 mmol/L (22-29); Chloride 106 mmol/L (96-108); Cholesterol 135 mg/dL (<200); Estimated Glomerular Filt Rate > 60; Glucose Fasting 115 mg/dL (60-99); HDL Cholesterol 32 mg/dL (>40); Iron 60 mcg/dL (45-160); LDL Cholesterol Calculated 69 mg/dL (<100); Percent Iron Saturation 22 % (15-50); Potassium 4.1 mmol/L (3.3-5.1); Sodium 140 mmol/L (135-145); Total Iron Binding Capacity 268 mcg/dL (228-428); Triglycerides 174 mg/dL (<150); Unsaturated Iron Binding 208 ug/dL
[2024-09-05 13:56] LABS: Vitamin D 25-OH Total 42.6 ng/mL (>30)
[2024-09-05 14:43] LABS: Folate 6.5 ng/mL (> or = 4.0); Vitamin B12 1108 pg/mL (200-900)
== END 2024-09-05 07:56 | disposition home or self-care (01) ==
LOC: HO.HMGCLDS 07:55
PROVIDERS: PCP Internal Medicine; Visit Provider Internal Medicine
DX: Z00.01 Encounter for general adult medical examination with abnormal findings (principal); F41.9 Anxiety disorder, unspecified; F32.A Depression, unspecified; E78.5 Hyperlipidemia, unspecified; I10 Essential (primary) hypertension; R79.89 Other specified abnormal findings of blood chemistry; R74.8 Abnormal levels of other serum enzymes; D22.9 Melanocytic nevi, unspecified; R26.81 Unsteadiness on feet; Z71.89 Other specified counseling
CPT/HCPCS: 36415; 80048; 80061; 82306; 82550; 82607; 82746; 83540; 84450; 84460; 85025; 96127; 99397; 99497

== ENCOUNTER 2024-09-05 07:55 | Outpatient (AMB) | payer MEDICARE, SELFPAY ==
--- OUTSIDE RECORDS SUMMARY | 2024-09-05 07:59 | XMS_ITS | Encounter Summary ---
Author Name [facility] Organization [facility] Address [address] [place] [address] Care Team Providers Care Canine Enforcement Officer Name Role Phone DENYS GARY Primary Care Provider UnavailKENNETH Burkett Primary Care Provider Unavailluli mejia Insurance Providers: All historical and current Section Date Range: From patient's date of to the date document was created. This section includes the names of all active insurance providers for the patient. Insurance Provider Type of Coverage Plan Name Start of Policy Coverage End of Policy Coverage Group Number Member ID Insurance Provider's Telephone Number Policy Herman's Name Patient's Relationship to Policy Herman [employer] [place] [employer] Oct 24, 2017 [facility] [id number] [id number] COLON,ADA LBERTO PATIENT MEDICARE (WNR) MEDICARE (M) PART A Oct 24, 2017 PART A [id number] COLON SR,ADALBE RTO PATIENT MEDICARE (WNR) MEDICARE (M) PART B Oct 24, 2017 PART B [id number] COLON SR,ADALBE RTO PATIENT MEDICARE (WNR) MEDICARE (M) PART A Oct 24, 2017 PART A [id number] COLON,ADA LBERTO PATIENT MEDICARE (WNR) MEDICARE (M) PART B Oct 24, 2017 PART B [id number] [phone] COLON,ADA LBERTO PATIENT Selected Encounter This section includes the information on record at [place] for the Encounter. Date/Time Encounter Type Encounter Description Reason Pro vider Source Aug 10, 2024 11:50 AM Outpatient Encounter PRIMARY CARE/MEDICINE IHE Encounter Template Text not used by [facility] Social History: Smoking Status (Most current) and Tobacco Use (All prior to encounter date) This section includes the most current, and the historical, smoking and tobacco- related health factors from the [facility] facility where the Encounter took place. Current Smoking Status This section includes the most current smoking, or tobacco-related health factor, from the [place] facility where the Encounter took place. Date/Time Current Smoking Status Comment Facil [facility] Oct 01, 2023 11:38 AM VA-TOBACCO NEVER USED [place] [facility] [place] [facility] Advance Directives: All historical and current Section Date Range: From patient's date of to the date document was created. This section includes ALL of a patient's completed or amended [facility] Advance and Rescinded Directives. The entries below indicate that a directive exists for the patient, but an actual copy is not included with this document. The data comes from all [place] facilities. Date Advance Directives Provider Source Oct 15, 2023 ADVANCE DIRECTIVE DAVID GALLARDO [facility] Encounter Notes: All associated encounter notes This section contains the clinical notes associated to the Encounter. 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 NO ANSWER,LEFT MESSAGE FOR TO CALL AND SCHEDULE APPT. /adrianne/ ADDIE FULLER ADVANCED DATA ENTRY OPERATOR Signed: 08/10/2024 11:51 ADDIE FULLER CHARDON
--- OUTSIDE RECORDS SUMMARY | 2024-09-05 07:59 | XMS_ITS | Continuity of Care Document ---
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 It does not include entries that were removed or entered in error. Problem Status Onset Date Problem Type Date of Resolution Comments Source Benign essential hypertension Active Condition [facility] Depression ([facility] [id number]) Active Condition [place] HTN - Hypertension ([facility] 94378928) [facility] Active [facility] Hyperlipidemia ([facility] 43826276) Active Condition [facility] Keratosis Active Condition [place] Obesity Active Condition [facility] Under care of multiple providers Active Condition Oct 03 Entered By: DANILO LUEVANO Comment: [place] PCP: Ketty bartholomew 12/2023 P: [phone] Oct 04, 2023 Entered By: DANILO LUEVANO Comment: [facility] PCP: Ana Maria dee 01/2024 P: [phone] Oct 04, 2023 Entered By: DANILO LUEVANO Comment: Optometry: Bucky Alatorre P: [phone] [place] [facility] Urinary frequency Active Condition [facility] Diagnosis: ICD-10-CM I10 Essential (primary) hypertension Active Diagnosis [place] Diagnosis: ICD-10-CM L82.1 Other seborrheic keratosis Active Diagnosis [facility] Diagnosis: ICD-10-CM Z13.89 Encounter for screening for other disorder Active Diagnosis [facility] Medications Combined list of outpatient medications from Department of Defense and Veterans Affairs facilities.Medications provided include 1) outpatient medications from the last 15 months, and 2) patient-reported medications. Medication Details Route Status Patient Instructions Prescription Expires Prescription Number Last Dispense Date Ordering Provider Order Date Order Qty Source AMLODIPINE BESYLATE 2.5MG TAB TAKE ONE TABLET BY MOUTH ONCE DAILY ORAL ACTIVE REGIS GARY K 2017 [facility] AMLODIPINE BESYLATE 5MG TAB TAKE ONE TABLET BY MOUTH ONCE DAILY ORAL ACTIVE [facility] IELD ASCORBIC ACID 500MG TAB TAKE ONE TABLET BY MOUTH ONCE DAILY ORAL ACTIVE [facility] spring IELD ATORVASTATI N CA 40MG TAB TAKE ONE-HALF TABLET BY MOUTH ONCE DAILY ORAL ACTIVE [facility] spring IELD CYANOCOBALA MIN TAB TAKE BY MOUTH ORAL ACTIVE [facility] 2023 [facility] IELD HYDROCHLORO THIAZIDE 25MG TAB TAKE ONE TABLET BY MOUTH EVERY MORNING ORAL ACTIVE GARY,UDA Y K 2017 [facility] HYDROCHLORO THIAZIDE 25MG TAB TAKE ONE TABLET BY MOUTH ONCE DAILY ORAL ACTIVE [facility] spring IELD MULTIVITAMI NS CAP/TAB TAKE ONE TABLET BY MOUTH ONCE DAILY ORAL ACTIVE GARY,UDA Y K 2017 [facility] SERTRALINE HCL 100MG TAB TAKE ONE-HALF TABLET BY MOUTH ONCE DAILY ORAL ACTIVE [facility] spring IELD TRAZODONE HCL 100MG TAB TAKE ONE-HALF TABLET BY MOUTH ONCE DAILY ORAL ACTIVE [facility] 2023 [facility] IELD VITAMIN D3 (CHOLECALCI FEROL) TAB TAKE BY MOUTH ONCE DAILY ORAL ACTIVE [facility] spring IELD VITAMIN E CAP,ORAL TAKE BY MOUTH ORAL ACTIVE [facility] 2023 [facility] IELD Immunizations Combined list of available immunizations from the Department of Defense and Veterans Affairs facilities. 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 Safety Security Officer Status Comments Source INFLUENZA, UNSPECIFIED FORMULATION 2023 88 complet ed [place] [facility] TDAP 2023 MATTIE VIVAS RIGHT DELTO ID [id number] 115 complet ed [facility] IELD INFLUENZA, UNSPECIFIED FORMULATION 2022 88 complet ed [place] [facility] [place] [facility] INFLUENZA, SEASONAL, INJECTABLE 2017 141 complet ed [facility] INFLUENZA, SEASONAL, INJECTABLE 2016 141 complet ed Site: Left Deltoid [facility] [place] [facility] Results Combined list of recent chemistry, hematology and other laboratory results from Department of Defense and Veterans Affairs, ranging from 15 months to all on record, depending upon the facility. Order Name Results Value Reference Range Date Interpretation Specimen Comments Source HEPATITIS C ANTIBODY (HCV)-ARC HEPATITIS C VIRUS AB [PRESENCE] IN SERUM NON-RE ACTIVE 11/04 Specimen Type: SERUM Comment: Hep C Ab: No HCV antibody detected. If recent infection is suspected or other evidence suggests HCV infection, consider HCV nucleic acid testing Ordering Provider: GEORGIA LUEVANO Report Released Date/Time: Oct 01, 2023 12:05 PM Reporting Lab: [address] [address] Performing Lab: [address] [address] [facility] HIV 1&2 Ag/Ab SCREEN HIV 1+2 AB+HIV1 P24 AG [PRESENCE] IN SERUM OR PLASMA BY IMMUNOASSAY NON-RE ACTIVE 11/04 Specimen Type: SERUM No comment entered. Ordering Provider: GEORGIA LUEVANO Report Released Date/Time: Oct 01, 2023 12:05 PM Reporting Lab: [address] [address] Performing Lab: [address] [address] [facility] 25-OH (Therapy monitor) 25-HYDROXYV ITAMIN D3 [MASS/VOLUM E] IN SERUM OR PLASMA 44 ng/mL 30 - 100 11/04 Specimen Type: SERUM Comment: Vitamin D, 25-Hydroxy reports concentrati ons of two common forms, 25-OHD2 and 25-OHD3. 25-OHD3 indicates both endogenous production and supplementa tion. 25-OHD2 is an indicator of exogenous sources such as diet or supplementa tion. Therapy is based on measurement of Total 25-OHD, with levels <20 ng/mL indicative of Vitamin D deficiency, while levels between 20 ng/mL and 30 ng/mL suggest insufficien cy. Optimal levels are > or = 30 ng/mL. For additional information , please refer to http://educ ation.[email or web address] .[employer]/faq/FA Q113 (This link is being provided for information al/ educational purposes only.) This test was developed and its analytical performance characteris tics have been determined by [employer] [place], [place]. It has not been cleared or approved by the U.S. Food and Drug Administrat ion. This assay has been validated pursuant to the CLIA regulations and is used for clinical purposes. This test was developed and its analytical performance characteris tics have been determined by [email or web address] [place], [place]. It has not been cleared or approved by the U.S. Food and Drug Administrat ion. This assay has been validated pursuant to the CLIA regulations and is used for clinical purposes. Test Performed by [facility], [email or web address] [facility], [address] [place] [address] Yoan Bach M.D., Ph.D., Director of Laboratorie s , CLIA [id number] TEST PERFORMED AT: , Ordering Provider: GEORGIA LUEVANO Report Released Date/Time: Oct 01, 2023 12:05 PM Reporting Lab: [facility] [address] [address] Performing Lab: [facility] [id number] [place] [address] VITAMIN D 25-OH (Therapy monitor) 25-HYDROXYV ITAMIN D3 [MASS/VOLUM E] IN SERUM OR PLASMA 44 ng/mL 11/04 Specimen Type: SERUM Comment: Vitamin D, 25-Hydroxy reports concentrati ons of two common forms, 25-OHD2 and 25-OHD3. 25-OHD3 indicates both endogenous production and supplementa tion. 25-OHD2 is an indicator of exogenous sources such as diet or supplementa tion. Therapy is based on measurement of Total 25-OHD, with levels <20 ng/mL indicative of Vitamin D deficiency, while levels between 20 ng/mL and 30 ng/mL suggest insufficien cy. Optimal levels are > or = 30 ng/mL. For additional information , please refer to http://educ ation.[email or web address] .com/faq/FA U820 (This link is being provided for information al/ educational purposes only.) This test was developed and its analytical performance characteris tics have been determined by [employer] [place]. It has not been cleared or approved by the U.S. Food and Drug Administrat ion. This assay has been validated pursuant to the CLIA regulations and is used for clinical purposes. This test was developed and its analytical performance characteris tics have been determined by [employer] [place], [place]. It has not been cleared or approved by the U.S. Food and Drug Administrat ion. This assay has been validated pursuant to the CLIA regulations and is used for clinical purposes. Test Performed by [facility], [email or web address] [facility], [address] [place] [address] Yoan Bach M.D., Ph.D., Director of Laboratorie s , CLIA [id number] TEST PERFORMED AT: , Ordering Provider: GEORGIA LUEVANO Report Released Date/Time: Oct 01, 2023 12:05 PM Reporting Lab: [facility] [address] [address] Performing Lab: [facility] [address] [address] [facility] VITAMIN D 25-OH (Therapy monitor) CALCIFEROL (VIT D2) [MASS/VOLUM E] IN SERUM OR PLASMA <4ng/m L 11/04 Specimen Type: SERUM Comment: Vitamin D, 25-Hydroxy reports concentrati ons of two common forms, 25-OHD2 and 25-OHD3. 25-OHD3 indicates both endogenous production and supplementa tion. 25-OHD2 is an indicator of exogenous sources such as diet or supplementa tion. Therapy is based on measurement of Total 25-OHD, with levels <20 ng/mL indicative of Vitamin D deficiency, while levels between 20 ng/mL and 30 ng/mL suggest insufficien cy. Optimal levels are > or = 30 ng/mL. For additional information , please refer to http://educ ation.[email or web address] .com/faq/FA Q199 (This link is being provided for information al/ educational purposes only.) This test was developed and its analytical performance characteris tics have been determined by [email or web address] [place]. It has not been cleared or approved by the U.S. Food and Drug Administrat ion. This assay has been validated pursuant to the CLIA regulations and is used for clinical purposes. This test was developed and its analytical performance characteris tics have been determined by [employer] [place], [place]. It has not been cleared or approved by the U.S. Food and Drug Administrat ion. This assay has been validated pursuant to the CLIA regulations and is used for clinical purposes. Test Performed by [facility], [email or web address] [facility], [address] [place] [address] Yoan Bach M.D., Ph.D., Director of Laboratorie s , CLIA [id number] TEST PERFORMED AT: , Ordering Provider: GEORGIA LUEVANO Report Released Date/Time: Oct 01, 2023 12:05 PM Reporting Lab: [address] [address] Performing Lab: [place] [id number] [address] [place] BASIC METABOLIC PANEL (fasting) UREA NITROGEN [MASS/VOLUM E] IN SERUM OR PLASMA 17 mg/dL 7 - 25 11/04 Specimen Type: SERUM No comment entered. Ordering Provider: GEORGIA LUEVANO Report Released Date/Time: Oct 01, 2023 12:05 PM Reporting Lab: [address] [address] Performing Lab: [address] [address] [employer] BASIC METABOLIC PANEL (fasting) GLUCOSE [MASS/VOLUM E] IN SERUM OR PLASMA 106 mg/dL 65 - 100 11/04 H Specimen Type: SERUM No comment entered. Ordering Provider: GEORGIA LUEVANO Report Released Date/Time: Oct 01, 2023 12:05 PM Reporting Lab: [facility] [address] [address] Performing Lab: [facility] [address] [address] [place] BASIC METABOLIC PANEL (fasting) SODIUM [MOLES/VOLU ME] IN SERUM OR PLASMA 143 mmol/L 135 - 145 11/04 Specimen Type: SERUM No comment entered. Ordering Provider: GEORGIA LUEVANO Report Released Date/Time: Oct 01, 2023 12:05 PM Reporting Lab: [facility] [address] [address] Performing Lab: [facility] [address] [address] [place] BASIC METABOLIC PANEL (fasting) POTASSIUM [MOLES/VOLU ME] IN SERUM OR PLASMA 3.9 mmol/L 3.5 - 5.0 11/04 Specimen Type: SERUM No comment entered. Ordering Provider: GEORGIA LUEVANO Report Released Date/Time: Oct 01, 2023 12:05 PM Reporting Lab: [facility] [address] [address] Performing Lab: [facility] [address] [address] [place] BASIC METABOLIC PANEL (fasting) CHLORIDE [MOLES/VOLU ME] IN SERUM OR PLASMA 107 mmol/L 100 - 110 11/04 Specimen Type: SERUM No comment entered. Ordering Provider: GEORGIA LUEVANO Report Released Date/Time: Oct 01, 2023 12:05 PM Reporting Lab: [facility] [address] [address] Performing Lab: [facility] [address] [address] [place] BASIC METABOLIC PANEL (fasting) CARBON DIOXIDE, TOTAL [MOLES/VOLU ME] IN SERUM OR PLASMA 26 meq/L 20 - 30 11/04 Specimen Type: SERUM No comment entered. Ordering Provider: GEORGIA LUEVANO Report Released Date/Time: Oct 01, 2023 12:05 PM Reporting Lab: [facility] [address] [address] Performing Lab: [facility] [address] [address] [place] BASIC METABOLIC PANEL (fasting) CREATININE [MASS/VOLUM E] IN SERUM OR PLASMA 1.15 mg/dL 0.50 - 1.40 11/04 Specimen Type: SERUM No comment entered. Ordering Provider: GEORGIA LUEVANO Report Released Date/Time: Oct 01, 2023 12:05 PM Reporting Lab: [address] [address] Performing Lab: [address] [address] [place] BASIC METABOLIC PANEL (fasting) GLOMERULAR FILTRATION RATE/1.73 SQ M.PREDICTED [VOLUME RATE/AREA] IN SERUM, PLASMA OR BLOOD BY CREATININE- BASED FORMULA (CKD-EPI 2020) 68 mL/min 60 11/04 Specimen Type: SERUM No comment entered. Ordering Provider: GEORGIA LUEVANO Report Released Date/Time: Oct 01, 2023 12:05 PM Reporting Lab: [address] [address] Performing Lab: [address] [address] [place] LIPID PANEL FASTING CHOLESTEROL [MASS/VOLUM E] IN SERUM OR PLASMA 131 mg/dL 11/04 Specimen Type: SERUM No comment entered. Ordering Provider: GEORGIA LUEVANO Report Released Date/Time: Oct 01, 2023 12:05 PM Reporting Lab: [facility] [address] [address] Performing Lab: [address] [address] [place] LIPID PANEL FASTING TRIGLYCERID E [MASS/VOLUM E] IN SERUM OR PLASMA 207 mg/dL 0 - 150 11/04 H Specimen Type: SERUM No comment entered. Ordering Provider: GEORGIA LUEVANO Report Released Date/Time: Oct 01, 2023 12:05 PM Reporting Lab: [facility] [address] [address] Performing Lab: [facility] [address] [place] LIPID PANEL FASTING CHOLESTEROL IN LDL [MASS/VOLUM E] IN SERUM OR PLASMA BY CALCULATION 58 mg/dL 0 - 129 11/04 Specimen Type: SERUM No comment entered. Ordering Provider: GEORGIA LUEVANO Report Released Date/Time: Oct 01, 2023 12:05 PM Reporting Lab: [facility] [address] [address] Performing Lab: [facility] [address] [address] [place] LIPID PANEL FASTING CHOLESTEROL .TOTAL/CHOL ESTEROL IN HDL [MASS RATIO] IN SERUM OR PLASMA 4.1 11/04 Specimen Type: SERUM No comment entered. Ordering Provider: GEORGIA LUEVANO Report Released Date/Time: Oct 01, 2023 12:05 PM Reporting Lab: [facility] [address] [address] Performing Lab: [facility] [address] [place] LIPID PANEL FASTING CHOLESTEROL IN HDL [MASS/VOLUM E] IN SERUM OR PLASMA 32 mg/dL 40 - 60 11/04 L Specimen Type: SERUM No comment entered. Ordering Provider: GEORGIA LUEVANO Report Released Date/Time: Oct 01, 2023 12:05 PM Reporting Lab: [facility] [address] Performing Lab: [facility] [address] [place] LIVER FUNCTION PROTEIN [MASS/VOLUM E] IN SERUM OR PLASMA 7.3 g/dL 6.0 - 8.3 11/04 Specimen Type: SERUM No comment entered. Ordering Provider: GEORGIA LUEVANO Report Released Date/Time: Oct 01, 2023 12:05 PM Reporting Lab: [facility] [address] [address] Performing Lab: [facility] [address] [address] [place] LIVER FUNCTION ALBUMIN [MASS/VOLUM E] IN SERUM OR PLASMA 3.9 g/dL 3.5 - 5.0 11/04 Specimen Type: SERUM No comment entered. Ordering Provider: GEORGIA LUEVANO Report Released Date/Time: Oct 01, 2023 12:05 PM Reporting Lab: [facility] [address] [address] Performing Lab: [facility] [address] [address] [place] LIVER FUNCTION ALKALINE PHOSPHATASE [ENZYMATIC ACTIVITY/VO LUME] IN SERUM OR PLASMA 87 U/L 40 - 150 11/04 Specimen Type: SERUM No comment entered. Ordering Provider: GEORGIA LUEVANO Report Released Date/Time: Oct 01, 2023 12:05 PM Reporting Lab: [facility] [address] [address] Performing Lab: [facility]TRN [facility] [address] [place] LIVER FUNCTION ASPARTATE AMINOTRANSF ERASE [ENZYMATIC ACTIVITY/VO LUME] IN SERUM OR PLASMA 40 U/L 5 - 34 11/04 H Specimen Type: SERUM No comment entered. Ordering Provider: GEORGIA LUEVANO Report Released Date/Time: Oct 01, 2023 12:05 PM Reporting Lab: [facility] [address] [address] Performing Lab: [facility]TRN [facility] [address] [place] LIVER FUNCTION ALANINE AMINOTRANSF ERASE [ENZYMATIC ACTIVITY/VO LUME] IN SERUM OR PLASMA 31 U/L 11/04 Specimen Type: SERUM No comment entered. Ordering Provider: GEORGIA LUEVANO Report Released Date/Time: Oct 01, 2023 12:05 PM Reporting Lab: [place] [facility] [address] [address] Performing Lab: [place] [facility] [address] [address] [place] LIVER FUNCTION BILIRUBIN.T OTAL [MASS/VOLUM E] IN SERUM OR PLASMA 0.5 mg/dL 0.2 - 1.2 11/04 Specimen Type: SERUM No comment entered. Ordering Provider: GEORGIA LUEVANO Report Released Date/Time: Oct 01, 2023 12:05 PM Reporting Lab: [facility] [address] [address] Performing Lab: [place] [facility] [address] [place] CBC AND DIFF (AUTO) LEUKOCYTES [#/VOLUME] IN BLOOD BY AUTOMATED COUNT 5.07 10*3/u L 4.50 - 11.00 11/04 Specimen Type: BLOOD No comment entered. Ordering Provider: GEORGIA LUEVANO Report Released Date/Time: Oct 01, 2023 12:05 PM Reporting Lab: [place] [facility] [address] [address] Performing Lab: [place] [facility] [address] [address] [place] CBC AND DIFF (AUTO) ERYTHROCYTE S [#/VOLUME] IN BLOOD BY AUTOMATED COUNT 4.11 10*6/u L 4.23 - 5.66 11/04 L Specimen Type: BLOOD No comment entered. Ordering Provider: GEORGIA LUEVANO Report Released Date/Time: Oct 01, 2023 12:05 PM Reporting Lab: [place] [facility] [place] [address] [address] Performing Lab: [place] [facility] [place] [address] [address] [place] CBC AND DIFF (AUTO) HEMOGLOBIN [MASS/VOLUM E] IN BLOOD 12.6 g/dL 12.8 - 17 11/04 L Specimen Type: BLOOD No comment entered. Ordering Provider: GEORGIA LUEVANO Report Released Date/Time: Oct 01, 2023 12:05 PM Reporting Lab: [facility] [address] [address] Performing Lab: [facility]TR[facility] [address] [address] [place] CBC AND DIFF (AUTO) HEMATOCRIT [VOLUME FRACTION] OF BLOOD BY AUTOMATED COUNT 38.3 39.2 - 50.4 11/04 L Specimen Type: BLOOD No comment entered. Ordering Provider: GEORGIA LUEVANO Report Released Date/Time: Oct 01, 2023 12:05 PM Reporting Lab: [facility]TR[facility] [address] [address] Performing Lab: [facility] [address] [address] [place] CBC AND DIFF (AUTO) MCV [ENTITIC VOLUME] BY AUTOMATED COUNT 93.2 fL 82 - 99 11/04 Specimen Type: BLOOD No comment entered. Ordering Provider: GEORGIA LUEVANO Report Released Date/Time: Oct 01, 2023 12:05 PM Reporting Lab: [facility] [address] [address] Performing Lab: [facility]TRN [facility]USETS [address] [address] [place] CBC AND DIFF (AUTO) MCHC [MASS/VOLUM E] BY AUTOMATED COUNT 32.9 g/dL 30.8 - 35.1 11/04 Specimen Type: BLOOD No comment entered. Ordering Provider: GEORGIA LUEVANO Report Released Date/Time: Oct 01, 2023 12:05 PM Reporting Lab: [facility]TR[facility] [address] [address] Performing Lab: [facility]TRN [facility] [address] [place] CBC AND DIFF (AUTO) PLATELETS [#/VOLUME] IN BLOOD BY AUTOMATED COUNT 220 10*3/u L 140 - 360 11/04 Specimen Type: BLOOD No comment entered. Ordering Provider: GEORGIA LUEVANO Report Released Date/Time: Oct 01, 2023 12:05 PM Reporting Lab: [facility] [address] [address] Performing Lab: [place] [facility] [facility] [address] [address] [place] CBC AND DIFF (AUTO) ERYTHROCYTE DISTRIBUTIO N WIDTH [RATIO] BY AUTOMATED COUNT 14.1 12.0 - 16.0 11/04 Specimen Type: BLOOD No comment entered. Ordering Provider: GEORGIA LUEVANO Report Released Date/Time: Oct 01, 2023 12:05 PM Reporting Lab: [facility] [address] [address] Performing Lab: [facility]N [facility] [address] [place] CBC AND DIFF (AUTO) MONOCYTES [#/VOLUME] IN BLOOD BY AUTOMATED COUNT 0.49 10*3/u L 0.30 - 1.10 11/04 Specimen Type: BLOOD No comment entered. Ordering Provider: GEORGIA LUEVANO Report Released Date/Time: Oct 01, 2023 12:05 PM Reporting Lab: [facility] [place] [address] [address] Performing Lab: [facility] [address] [address] [place] CBC AND DIFF (AUTO) MCH [ENTITIC MASS] BY AUTOMATED COUNT 30.7 pg 26.2 - 32.6 11/04 Specimen Type: BLOOD No comment entered. Ordering Provider: GEORGIA LUEVANO Report Released Date/Time: Oct 01, 2023 12:05 PM Reporting Lab: [facility] [address] [address] Performing Lab: [facility] [address] [address] [place] CBC AND DIFF (AUTO) NEUTROPHILS /100 LEUKOCYTES IN BLOOD BY AUTOMATED COUNT 48.8 43.7 - 75.8 11/04 Specimen Type: BLOOD No comment entered. Ordering Provider: GEORGIA LUEVANO Report Released Date/Time: Oct 01, 2023 12:05 PM Reporting Lab: [place] [facility] [place] [address] [address] Performing Lab: [place] [facility] [address] [address] [place] CBC AND DIFF (AUTO) LYMPHOCYTES /100 LEUKOCYTES IN BLOOD BY AUTOMATED COUNT 37.5 14.0 - 42.3 11/04 Specimen Type: BLOOD No comment entered. Ordering Provider: GEORGIA LUEVANO Report Released Date/Time: Oct 01, 2023 12:05 PM Reporting Lab: [place] [facility] [address] [address] Performing Lab: [place] [facility] [address] [address] [place] CBC AND DIFF (AUTO) MONOCYTES/1 00 LEUKOCYTES IN BLOOD BY AUTOMATED COUNT 9.7 5.1 - 13.7 11/04 Specimen Type: BLOOD No comment entered. Ordering Provider: GEORGIA LUEVANO Report Released Date/Time: Oct 01, 2023 12:05 PM Reporting Lab: [place] [facility] [address] [address] Performing Lab: [place] [facility] [address] [address] [place] CBC AND DIFF (AUTO) EOSINOPHILS /100 LEUKOCYTES IN BLOOD BY AUTOMATED COUNT 3.2 0.4 - 6.8 11/04 Specimen Type: BLOOD No comment entered. Ordering Provider: GEORGIA LUEVANO Report Released Date/Time: Oct 01, 2023 12:05 PM Reporting Lab: [facility] [address] [address] Performing Lab: [facility] [address] [address] [place] CBC AND DIFF (AUTO) BASOPHILS/1 00 LEUKOCYTES IN BLOOD BY AUTOMATED COUNT 0.6 0.1 - 2.0 11/04 Specimen Type: BLOOD No comment entered. Ordering Provider: GEORGIA LUEVANO Report Released Date/Time: Oct 01, 2023 12:05 PM Reporting Lab: [facility] [address] [address] Performing Lab: [facility] [address] [address] [place] CBC AND DIFF (AUTO) NEUTROPHILS [#/VOLUME] IN BLOOD BY AUTOMATED COUNT 2.48 10*3/u L 2.20 - 7.60 11/04 Specimen Type: BLOOD No comment entered. Ordering Provider: GEORGIA LUEVANO Report Released Date/Time: Oct 01, 2023 12:05 PM Reporting Lab: [place] [facility] [address] Performing Lab: [place] [facility] [address] [address] [place] CBC AND DIFF (AUTO) LYMPHOCYTES [#/VOLUME] IN BLOOD BY AUTOMATED COUNT 1.90 10*3/u L 1.00 - 3.20 11/04 Specimen Type: BLOOD No comment entered. Ordering Provider: GEORGIA LUEVANO Report Released Date/Time: Oct 01, 2023 12:05 PM Reporting Lab: [place] [facility] [address] [address] Performing Lab: [place] [facility] [address] [address] [place] CBC AND DIFF (AUTO) EOSINOPHILS [#/VOLUME] IN BLOOD BY AUTOMATED COUNT 0.16 10*3/u L 0.03 - 0.44 11/04 Specimen Type: BLOOD No comment entered. Ordering Provider: GEORGIA LUEVANO Report Released Date/Time: Oct 01, 2023 12:05 PM Reporting Lab: [place] [facility] [address] [address] Performing Lab: [place] [facility] [address] [place] CBC AND DIFF (AUTO) BASOPHILS [#/VOLUME] IN BLOOD BY AUTOMATED COUNT 0.03 10*3/u L 0.01 - 0.13 11/04 Specimen Type: BLOOD No comment entered. Ordering Provider: GEORGIA LUEVANO Report Released Date/Time: Oct 01, 2023 12:05 PM Reporting Lab: [address] [address] Performing Lab: [address] [address] [place] CBC AND DIFF (AUTO) IMMATURE GRANULOCYTE S/100 LEUKOCYTES IN BLOOD BY AUTOMATED COUNT 0.2 0.0 - 0.7 11/04 Specimen Type: BLOOD No comment entered. Ordering Provider: GEORGIA LUEVANO Report Released Date/Time: Oct 01, 2023 12:05 PM Reporting Lab: [address] [address] Performing Lab: [address] [address] [place] CBC AND DIFF (AUTO) IMMATURE GRANULOCYTE S [#/VOLUME] IN BLOOD 0.01 10*3/u L 0.00 - 0.06 11/04 Specimen Type: BLOOD No comment entered. Ordering Provider: GEORGIA LUEVANO Report Released Date/Time: Oct 01, 2023 12:05 PM Reporting Lab: [address] [address] Performing Lab: [address] [address] [place] HEMOGLOBI N A1C PANEL HEMOGLOBIN A1C/HEMOGLO BIN.TOTAL IN BLOOD BY HPLC 5.6 4.0 - 5.6 11/04 Specimen Type: BLOOD Comment: Values obtained from A1C measurement s can vary. For atypical A1C assays, a reported value of 7.0 could actually be between 6.72 and 7.28 if measured by a reference method. A reported value of 9.0 could actually be between 8.73 and 9.27. Ref: http://www. ngsp.org/[place] Pdata.asp Ordering Provider: GEORGIA LUEVANO Report Released Date/Time: Oct 01, 2023 12:05 PM Reporting [facility]: [facility] [address] [address] Performing Lab: [facility] [address] [place] THYROTROPIN [UNITS/VOLU ME] IN SERUM OR PLASMA 1.63 u[IU]/ mL 0.35 - 5.00 11/04 Specimen Type: SERUM No comment entered. Ordering Provider: GEORGIA LUEVANO Report Released Date/Time: Oct 01, 2023 12:05 PM Reporting [facility]: [facility] [address] [address] Performing Lab: [facility] [address] [address] [facility] VITAMIN B12 COBALAMIN (VITAMIN B12) [MASS/VOLUM E] IN SERUM OR PLASMA 961 pg/mL 200 - 900 11/04 H Specimen Type: SERUM No comment entered. Ordering Provider: GEORGIA LUEVANO Report Released Date/Time: Oct 01, 2023 12:05 PM Reporting [facility]: [facility] [address] [address] Performing Lab: [facility] [address] [address] [facility] Vital Signs Combined list of inpatient and outpatient Vital Signs from Department of Defense and Veterans Affairs, ranging from 12 months to all on record, depending upon the facility. Vital Sign Value Date Comments Source SYSTOLIC BLOOD PRESSURE 163 05/05/2024 10:00:43 [place] DIASTOLIC BLOOD PRESSURE 88 05/05/2024 10:00:43 [place] PULSE OXIMETRY 96 05/05/2024 10:00:43 [place] WEIGHT 200 05/05/2024 10:00:43 [place] [facility] BMI 30 kg/m2 05/05/2024 10:00:43 [place] [facility] PULSE 71 05/05/2024 10:00:43 [facility] SYSTOLIC BLOOD PRESSURE 142 02/01/2024 14:40:00 [place] DIASTOLIC BLOOD PRESSURE 92 02/01/2024 14:40:00 [place] PULSE 68 02/01/2024 14:40:00 [place] SYSTOLIC BLOOD PRESSURE 157 01/03/2024 13:04:04 [place] DIASTOLIC BLOOD PRESSURE 83 01/03/2024 13:04:04 [place] PULSE OXIMETRY 95 01/03/2024 13:04:04 [place] WEIGHT 196 01/03/2024 13:04:04 [place] BMI 30 kg/m2 01/03/2024 13:04:04 [place] PULSE 74 01/03/2024 13:04:04 [place] SYSTOLIC BLOOD PRESSURE 149 11/05/2023 10:53:44 [place] DIASTOLIC BLOOD PRESSURE 85 11/05/2023 10:53:44 [place] PULSE OXIMETRY 97 11/05/2023 10:53:44 [place] WEIGHT 203 11/05/2023 10:53:44 [place] BMI 31 kg/m2 11/05/2023 10:53:44 [place] HEIGHT 68 11/05/2023 10:53:44 [place] PULSE 75 11/05/2023 10:53:44 [place] SYSTOLIC BLOOD PRESSURE 137 10/01/2023 11:36:36 [place] DIASTOLIC BLOOD PRESSURE 72 10/01/2023 11:36:36 [place] PULSE OXIMETRY 98 10/01/2023 11:36:36 [place] WEIGHT 200 10/01/2023 11:36:36 [place] TEMPERATURE 98 10/01/2023 11:36:36 [place] PULSE 75 10/01/2023 11:36:36 [place] RESPIRATION 20 10/01/2023 11:36:36 [place] Encounters Combined list of: 1) Encounters from Department of Veterans Affairs facilities going backup to the last 18 months, not all VA inpatient encounters are included; 2) Encounters from the Department of Defense facilities going backup to 280 months. Location Location Details Encounter Type Encounter Number Reason For Visit Attending Provider ADM Date DC Date Status Disposition Source [place] [facility] [facility] [facility] Outpatient Encounter [id number] 05/26 [place] [facility] [facility] [facility] [place] [facility] Encounter [id number] 09/21 [facility] [place] [facility] [facility] [place] En[facility] [id number] 09/22 [facility] [place] [facility] [facility] [place] En[facility] [id number] 09/30 [facility] [place] [facility] OFFICE O/P NEW MOD 45 MIN [id number] Diagnos is: ICD-10- CM I10 Essenti al (primar y) hyperte nsion STELEA,CAR MEN F 09[place] [facility] En[facility] [id number] 09/30 [facility] [place] En[facility] [id number] 09/30 [facility] [place] En[facility] [id number] 09/30 [facility] [place] En[facility] [id number] 10/07 [facility] [place] [facility] UNLISTED SPEC DERM SVC/PX [id number] Diagnos is: ICD-10- CM Z13.89 Encount er for screeni ng for other disorde r Tawanna TOMAS 10/14 [facility] En[facility] [id number] 10/14 [facility] [place] [facility] Outpatient Encounter [id number] Diagnos is: ICD-10- CM L82.1 Other seborrh eic keratos is LEANNE BRADEN Salma 10/17 [facility] [place] [facility] Encounter [id number] 10/17 [facility] [place] En[facility] [id number] 10/18 [facility] [place] En[facility] [id number] 10/19 [facility] [place] [place] OFFICE O/P EST LOW 20 MIN [id number] Diagnos is: ICD-10- CM I10 Essenti al (primar y) hyperte nsbriana LUEVANO,CAR MEN F 11/04 [place] [facility] Out[facility] Encounter [id number] 11/15 [facility] [place] En[facility] [id number] 11/24 [facility] [place] OFF[place] O/P EST MOD 30 MIN [id number] Diagnos is: ICD-10- CM I10 Essenti al (primar y) hyperte nsbriana LUEVANO,CAR MEN F 01/02 [place] OFF/OP EST MAY X REQ PHY/QHP [id number] Diagnos is: ICD-10- CM I10 Essenti al (primar y) hyperte WILL Tran 01/31 [place] [facility] Encounter [id number] 04/05 [facility] [place] [place] OFF[place] O/P EST MOD 30 MIN [id number] Diagnos is: ICD-10- CM I10 Essenti al (primar y) hyperte nsbriana LUEVANOCAR MEN F 05/05 [place] [facility] [place] [facility] Outpatient Encounter [id number] 07/21 [facility] [place] [facility] [place] [facility] Outpatient Encounter [id number] 07/25 [facility] [place] [facility] [place] [facility] Outpatient Encounter [id number] 08/10 [facility] [place] [facility] Social History Combined list of available smoking, tobacco, and other social history from Department of Defense and Veterans Affairs facilities. Social History Type Response Date Comment Sour e Tobacco smoking status [facility] VA-TOBACCO NEVER USED 10/01/2023 [facility] [place] [facility] History of tobacco use VA-TOBACCO FORMER USER 07/12/2018 [facility] History of tobacco use LIFETIME NON-TOBACCO USER 07/13/2017 [facility] Advance Directives List of completed, amended, or rescinded Advance Directives on record at Department of Veterans Affairs facilities. An actual copy of the Directive is not included. Date Advance Directive Provider Source 10/15/2023 [facility]
[2024-09-05 08:11] VITALS: BP 130/70; PULSE 75; RESP 18; TEMP 36.7; O2SAT 98; BMI 29.4
--- NOTE | 2024-09-05 08:11 | A.OFFPC_ITS ---
Vital Signs 09/05/24 08:11 Height 5 ft 9 in Weight 199 lb BMI 29.4 BP 130/70 Blood Pressure Location Rt brachial Position Sitting Respiration 18 Pulse 75 Pulse Source Pulse Oximeter Temp 98.1 F Temp Source Oral Pulse Oximetry (%) 98 Oxygen Delivery Method Room Air Intake Visit Reasons: PE 6mo f/u-see note 08/23 for OT Intake Note: Pt is here today for his PE Allergies No Known Allergies Allergy (Verified 09/05/24 08:40) Medication List - Last Reconciled 09/05/24 by Ana Maria Ga MD amlodipine 5 mg PO DAILY ascorbic acid (vitamin C) 500 mg PO DAILY atorvastatin 20 mg PO DAILY calcium [id number] endoscopy-la 250 mg-40 mg- 125 unit-3.75mg 1 tab PO DAILY cholecalciferol (vitamin D3) 25 mcg PO DAILY sertraline 50 mg PO DAILY trazodone 50 mg PO BEDTIME PRN vitamin B complex 1 tab PO DAILY Tobacco use date assessed: 09/05/24 Fall risk assessment: No Falls in past year Last assessed Fall Risk: 09/05/24 Dental Screening Dental Screen Date: 02/02/24 Did you have a dental visit in the last 12 months?: Yes Did you have a dental problem in the last 6 months where you did not have access to dental care?: No Was dental information given to patient?: Patient has dentist HPI PE 6mo f/u-see note 08/23 for OT HPI Details 73-year-old male with past medical histo ry significant for hypertension, hyperlipidemia, seasonal allergie, and anxiety depression, here today for physical exam - currently taking atorvastatin for chol esterol management. - up-to-date with his flu vaccine, pneum onia vaccine - requesting referral to Dermatology to check multiple skin lesions on his face and trunk - history of colonic polyps in the past, due for his repeat colonoscopy - Engages in physical activity related t o yard maintenance, including snow shoveling. - Gained weight since January, attributing to decreased exercise and seasonal changes. -he has anxiety depression, stable and controlled on sertraline [facility] Medical History (Updated 09/05/24 @ 08:46 by Ana Maria Ga MD) Anemia History of right inguinal hernia Anxiety and depression Hyperlipidemia Essential hypertension Surgical History Hx of colonoscopy Hx of inguinal herniorrhaphy History of appendectomy History of left knee replacement Family History Father Congenital heart disease Acute myocardial infarction Mother Systemic lupus erythematosus Osteoporosis Social History Housing: House Patient Tobacco Use Status: Former Tobacco user e-Cigarette/Vaping Use: Never Used service: Yes Current occupational status: retired Cognitive needs: No Hearing needs: No Vision needs: Yes Questionnaire PHQ-9 Over the last 2 weeks, how often have you been bothered by any of the following problems? 1. Little interest or pleasure in doing things: not at all 2. Feeling down, depressed, or hopeless: not at all 3. Trouble falling or staying asleep, or sleeping too much: not at all 4. Feeling tired or having little energy: not at all 5. Poor appetite or overeating: not at all 6. Feeling bad about yourself - or that you are a failure or have let yourself or your family down: not at all 7. Trouble concentrating on things, such as reading the newspaper or watching television: not at all 8. Moving or speaking so slowly that other people could have noticed. Or the opposite - being so fidgety or restless that you have been moving around a lot more than usual: not at all 9. Thoughts that you would be better off or of hurting yourself in some way: not at all Total score: 0 Depression Screening Interpretation: Negative (Depression controlled on sertraline) Depression Screening Done: Yes 01356 - PHQ-9 Billing: Yes Source: Developed by Drs. Akira Dominguez, Cristiane Landin, Michael Velez and colleagues, with an educational bo from [employer]. Thrive Questionnaire Date Thrive assessed: 09/05/24 I am a: Patient What is your living situation today?: I have a steady place to live Within the past 12 months, did the food you bought not last and you didn't have the money to get more?: Never true Within the past 12 months, did you worry whether your food would run out before you got money to buy more?: Never true Do you have trouble paying for medicines?: No Do you have trouble getting transportation to medical appointments?: No Do you have trouble paying your heating and electricity bill?: No Do you have trouble taking care of your child, family member or friend?: No Do you have trouble with day-to-day activities such as bathing, preparing meals, shopping, managing finances, etc.?: No Are you currently unemployed and looking for a job?: No Are you interested in more education?: No Please select the resources that you would like help with: None Currently or been in a relationship where the following occur: I choose not to answer THRIVE Score: 0 AUDIT C Alcohol Use Questionnaire (AUDIT-C) 1. How often do you have a drink containing alcohol?: Never Total Score: 0 DEMI-7 AMB Questionnaire DEMI-7 Date DEMI - 7 assessed: 09/05/24 Feeling nervous, anxious, or on edge: 1 = Several days Not being able to stop or control worryin = Not at all Worrying too much about different things: 0 = Not at all Trouble relaxin = Not at all Being so restless that it is hard to sit still: 0 = Not at all Becoming easily annoyed or irritable: 1 = Several days Feeling afraid as if something awful might happen: 1 = Several days Total DEMI-7 score (0-4 normal; 5-9 mild; 10-14 moderate; 15-21 severe): 3 Source: Developed by Drs. Akira Dominguez, Cristiane Landin, Michael Velez and colleagues, with an educational bo from [employer]. DEMI-7 Assessment Billing DEMI-7 Assessment Tool: DEMI-7 Assessment 32986 Review of Systems Const Denies body aches, Denies fever(s), Denies headache(s) and Denies weakness Eyes Details: Has appointment for eye exam in November 2024 at [place] [facility] Denies change in vision ENT Denies dizziness, Denies headache(s), Denies nasal congestion, Denies nasal discharge, Reports disequilibrium and Denies sore throat Card Denies chest pain, Denies lightheadedness, Denies palpitations and Denies dyspnea Resp Denies chest congestion, Denies cough, Denies dyspnea and Denies wheezing GI Denies abdominal pain, Denies change in bowel habits and Denies heartburn Denies hematuria, Denies difficulty urinating, Denies dysuria, Denies urinary frequency and Denies urinary urgency Musc Reports no additional complaints Skin/Breast Reports as per HPI Neuro Denies dizziness, Denies headache(s), Reports disequilibrium and Denies weakness Psych Reports no additional complaints Endo Denies polydipsia, Denies polyuria and Denies palpitations Carson/Lymph Denies easy bruising Aller/Immun Denies seasonal rhinorrhea and Denies wheezing Physical exam (Primary Care) Vital Signs: Last Vital Signs Temp 98.1 F 09/05/24 08:11 Pulse 75 09/05/24 08:11 Resp 18 09/05/24 08:11 BP 130/70 09/05/24 08:11 Pulse Ox 98 09/05/24 08:11 Oxygen Delivery Method Room Air 09/05/24 08:11 BMI result Body Mass Index 29.4 Tobacco/Smoking Status: Tobacco use Status Tobacco use date assessed 09/05/24 09/05/24 08:20 Patient Tobacco Use Status Former Tobacco user 09/05/24 08:11 e-Cigarette/Vaping Use Never Used 09/05/24 08:11 Depression Screening Interpretation: Negative (Depression controlled on sertraline) Thrive Assessment: Date of Thrive Assessment Date Thrive assessed 09/05/24 09/05/24 08:20 Currently or been in a relationship where the following occur: I choose not to answer Advance Care Planning discussion: Completed/Scanned Date of discussion: 09/05/24 Who was present: Patient and Forms completed: Health Care Proxy and MOLST Time spent: 16-45 minutes Actual minutes spent: 16 Const General: comfortable, no acute distress and alert Orientation/consciousness: patient oriented x3 HENMT Head: Yes normocephalic Ears: external ears normal, TM's normal bilaterally and EAC's normal General nose exam: Normal external nose present and No nasal discharge present Face and sinus: Yes face symmetric Mouth: Normal oral and palatal mucosa present, oropharynx normal and moist mucous membranes Eyes General: appearance normal, both eyes and all related structures Conjunctivae: conjunctivae normal Sclerae: sclerae normal Pupils: Equal, round and reactive pupils present EOM: EOMs intact bilaterally Neck Neck: Yes full ROM, Yes no lymphadenopathy and Yes supple Chest Chest palpation & inspection: normal inspection of the chest Resp Effort & Inspection: normal respiratory effort and able to speak in complete sentences Auscultation: clear to auscultation bilaterally Cardio Rate: regular rate Rhythm: regular rhythm Heart sounds: S1 normal heart sound present and S2 normal heart sound present GI Palpation (GI): Soft to palpation, nontender and no masses Auscultation: normal bowel sounds Male General Exam: Yes normal external exam Back/Spine/Pelvis Back: No back tenderness Skin Other: Scattered hyperpigmented macules on trunk, arms Neuro General: patient oriented x3, gait normal, tone normal, moves all extremities, Normal light touch and pain sensation and no focal motor deficits Cranial nerves: Yes CN's II-XII intact bilaterally and Yes Equal, round and reactive pupils present Cognition (Neuro): normal cognition Extrem General: Yes full ROM, Yes no joint enlargement, Yes no clubbing, cyanosis or edema and Yes no calf tenderness Psych Appearance: grossly normal and well kempt Mental Status: mental status grossly normal Speech and movement: Normal speech and movement present Affect: normal affect Attitude: cooperative Thought process: Normal thought process present Thought content: Normal thought content present Coding Level of Care Code Est Pt Prev Care >65y(91729) Diagnoses Annual visit for general adult medical examination with abnormal findings Z00. Essential hypertension I10 Hyperlipidemia E78.5 Anxiety and depression F41.9; F32.A Anemia D64.9 Encounter for screening for malignant neoplasm of colon Z12.11 Multiple atypical skin moles D22.9 Screening for Malignant Neoplasm of Skin Z12.83 Gait instability R26.81 Advanced directives, counseling/discussion Z71.89 Additional Codes PHQ-9 - 26882 - PHQ-9 Billing: Yes ([id number]) DEMI-7 Assessment Billing - DEMI-7 Assessment Tool: DEMI-7 Assessment 78761 ([id number]) Vital Signs *Quality* - Advance Care Planning discussion: Completed/Scanned ([id number]) Vital Signs *Quality* - Time spent: 16-45 minutes ([id number]) Assessment & Plan Assessment & Plan (1) Annual visit for general adult medical examination with abnormal findings: Code(s): Z00.01 - Encounter for general adult medical examination with abnormal findings (2) Essential hypertension: Code(s): I10 - Essential (primary) hypertension Category: Medical (3) Hyperlipidemia: Code(s): E78.5 - Hyperlipidemia, unspecified Category: Medical (4) Anxiety and depression: Code(s): F41.9 - Anxiety disorder, unspecified; F32.A - Depression, unspecified Category: Medical (5) Anemia: Code(s): D64.9 - Anemia, unspecified Category: Medical (6) Encounter for screening for malignant neoplasm of colon: Code(s): Z12.11 - Encounter for screening for malignant neoplasm of colon (7) Multiple atypical skin moles: Code(s): D22.9 - Melanocytic nevi, unspecified (8) Screening for Malignant Neoplasm of Skin: Code(s): Z12.83 - Encounter for screening for malignant neoplasm of skin (9) Gait instability: Code(s): R26.81 - Unsteadiness on feet (10) Advanced directives, counseling/discussion: Code(s): Z71.89 - Other specified counseling Plan: Initiated the conversation about Advanced Directives. Advanced Directives help patients prepare for current and future decisions about their medical treatment and place of care. Discussed with patient that it is a process where a patients current condition and prognosis are reviewed, their wishes for information regarding their illness are elicited, and likely medical dilemmas are presented and options discussed. Healthcare proxy form and MOLST form completed today. These forms can be amended as needed, reviewed yearly and make changes as needed Plan The patient will continue with his current atorvastatin and trazodone, sertraline therapy while monitoring their mood and cognitive function. Fasting labs have been ordered. A colonoscopy referral was placed to assess the persistent anemia and history of colon polyps. Advised to engage in moderate physical activity Dermatology referral has been made to address noted skin lesions. Referral for physical therapy evaluation and management ordered, to assess gait instability/disequilibrium Patient was informed and verbally consented to the use of an ambient scribe for clinic note documentation during this visit. Orders: Orders PT Evaluation and Treatment 09/05/24 R26.81 - Unsteadiness on feet Referrals Gastroenterology Referral D64.9 - Anemia, unspecified, Z00.01 - Encounter for general adult medical examination with abnormal findings, Z12.11 - Encounter for screening for malignant neoplasm of colon Dermatology Referral D22.9 - Melanocytic nevi, unspecified, Z12.83 - Encounter for screening for malignant neoplasm of skin Medications: Changed From trazodone 50 mg PO BEDTIME 30 tabs 2RF To trazodone 50 mg PO BEDTIME PRN sleep
== END 2024-09-05 09:20 | disposition home or self-care (01) ==
PROVIDERS: PCP Internal Medicine; Visit Provider Internal Medicine
DX: Z00.00 Encounter for general adult medical examination without abnormal findings (principal); I10 Essential (primary) hypertension; E78.5 Hyperlipidemia, unspecified; F41.9 Anxiety disorder, unspecified; F32.A Depression, unspecified; D64.9 Anemia, unspecified; Z12.11 Encounter for screening for malignant neoplasm of colon; D22.9 Melanocytic nevi, unspecified; Z12.83 Encounter for screening for malignant neoplasm of skin; R26.81 Unsteadiness on feet

== ENCOUNTER 2024-12-22 08:30 | Outpatient (AMB) | payer MEDICARE, SELFPAY ==
--- OUTSIDE RECORDS SUMMARY | 2024-12-22 08:33 | XMS_ITS | Continuity of Care Document ---
Author Name [facility] Organization [facility] Care Team Providers Care Sanitation Tank Washer Name Role Phone [facility] Unavailable Unavailable Problems Combined list of problems from Department of Defense and Veterans Affairs facilities. It does not include entries that were removed or entered in error. Problem Status Onset Date Problem Type Date of Resolution Comments Source Benign essential hypertension Active Condition [facility] Depression ([facility] [id number]) Active Condition [facility] HTN - Hypertension ([facility] 82203155) [facility] Hyperlipidemia Active Condition [facility] Hyperlipidemia ([facility] 07748631) Active Condition [place] Keratosis Active Condition [facility] Obesity Active Condition [facility] Under care of multiple providers Active Condition Oct 03 Entered By: DANILO LUEVANO Comment: [place] PCP: Ketty bartholomew 12/2023 P: [phone] Oct 04, 2023 Entered By: DANILO LUEVANO Comment: [facility] PCP: Ana Maria dee 01/2024 P: [phone] Oct 04, 2023 Entered By: ADNILO LUEVANO Comment: Optometry: Bucky Alatorre P: [phone] [place] [facility] [place] [facility] Urinary frequency Active Condition [facility] Diagnosis: ICD-10-CM I10 Essential (primary) hypertension Active Diagnosis [facility] Diagnosis: ICD-10-CM L82.1 Other seborrheic keratosis Active Diagnosis [facility] Diagnosis: ICD-10-CM Z13.89 Encounter for screening for other disorder Active Diagnosis [facility] Medications Combined list of outpatient medications [...] ACTIVE REGIS GARY K 2017 [facility] AMLODIPINE BESYLATE 5MG TAB TAKE ONE TABLET BY MOUTH ONCE DAILY ORAL ACTIVE [place] [facility] 2023 [facility] IELD ASCORBIC ACID 500MG TAB TAKE ONE TABLET BY MOUTH ONCE DAILY ORAL ACTIVE [place] [facility] 2023 [facility] IELD ATORVASTATI N CA 40MG TAB TAKE ONE-HALF TABLET BY MOUTH ONCE DAILY ORAL ACTIVE [place] [facility] 2023 [facility]ELD CYANOCOBALA MIN TAB TAKE BY MOUTH ORAL ACTIVE [place] [facility] 2023 [facility]ELD HYDROCHLORO THIAZIDE 25MG TAB TAKE ONE TABLET BY MOUTH EVERY MORNING ORAL ACTIVE GARY,UDA Y K 2017 [facility] HYDROCHLORO THIAZIDE 25MG TAB TAKE ONE TABLET BY MOUTH ONCE DAILY ORAL ACTIVE [place] [facility] 2023 [facility] IELD MULTIVITAMI NS CAP/TAB TAKE ONE TABLET BY MOUTH ONCE DAILY ORAL ACTIVE GARY,UDA Y K 2017 [facility] SERTRALINE HCL 100MG TAB TAKE ONE-HALF TABLET BY MOUTH ONCE DAILY ORAL ACTIVE [place] [facility] 2023 [facility] IELD TRAZODONE HCL 100MG TAB TAKE ONE-HALF TABLET BY MOUTH ONCE DAILY ORAL ACTIVE [place] [facility] 2023 [facility]ELD VITAMIN D3 (CHOLECALCI FEROL) TAB TAKE BY MOUTH ONCE DAILY ORAL ACTIVE [place] [facility] 2023 [facility]ELD VITAMIN E CAP,ORAL TAKE BY MOUTH ORAL ACTIVE [place] [facility] 2023 [facility] IELD Immunizations Combined list of available immunizations from the Department of Defense and Veterans Affairs facilities. 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 Operations And Maintenance Specialist Status Comments Source INFLUENZA, UNSPECIFIED FORMULATION 2023 88 complet ed HISTORICA L INFORMATI ON - SOURCE UNSPECIFI ED, [place] [facility] TDAP 2023 MATTIE VIVAS RIGHT DELTO ID [id number] 115 complet ed [facility] IELD INFLUENZA, UNSPECIFIED FORMULATION 2022 88 complet ed HISTORICA L INFORMATI ON - FROM PATIENT'S RECALL, [facility] [place] [facility] INFLUENZA, SEASONAL, INJECTABLE 2017 141 complet ed [place] [facility] INFLUENZA, SEASONAL, INJECTABLE 2016 141 complet ed Site: Left Deltoid [facility] Results Combined list of recent chemistry, hematology and other laboratory results from Department of Defense and Veterans Affairs, ranging from 15 months to all on record, depending upon the facility. Order Name Results Value Reference Range Date Interpretation Specimen Comments Source OCCULT BLOOD FIT X1 SCREEN (MFP ONLY) HEMOGLOBIN .GASTROINT ESTINAL.LO WER [PRESENCE] IN STOOL BY IMMUNOASSA Y NEGATIVE 11/20 Specimen Type: FECES No comment entered. Ordering Provider: MARCI RUIZ Report Released Date/Time: Oct 02, 2024 01:07 PM Reporting Lab: [address] [address] Performing Lab: [address] [address] [place] ([facility]) HEPATITI S C ANTIBODY (HCV)-AR C HEPATITIS C VIRUS AB [PRESENCE] IN SERUM NON-REAC TIVE 11/04 Specimen Type: SERUM Comment: Hep C Ab: No HCV antibody detected. If recent infection is suspected or other evidence suggests HCV infection, consider HCV nucleic acid testing Ordering Provider: GEORGIA LUEVANO Report Released Date/Time: Oct 01, 2023 12:05 PM Reporting Lab: [facility] [address] [facility] [address] Performing Lab: [address] [address] [place] HIV 1&2 Ag/Ab SCREEN HIV 1+2 AB+HIV1 P24 AG [PRESENCE] IN SERUM OR PLASMA BY IMMUNOASSA Y NON-REAC TIVE 11/04 Specimen Type: SERUM No comment entered. Ordering Provider: GEORGIA LUEVANO Report Released Date/Time: Oct 01, 2023 12:05 PM Reporting Lab: [address] [address] Performing Lab: [address] [address] [facility] VITAMIN D 25-[place] (Therapy monitor) 25-HYDROXY VITAMIN D3 [MASS/VOLU ME] IN SERUM OR PLASMA 44 ng/mL 30 [...] additional information , please refer to http://educ ation.[employer] .Airseed/faq/FA Q199 (This link is being provided for information al/ educational purposes only.) This test was developed and its analytical performance characteris tics have been determined by [employer] [place]. It has not been cleared or approved by the U.S. Food and Drug Administrat ion. This assay has been validated pursuant to the CLIA regulations and is used for clinical purposes. This test was developed and its analytical performance characteris tics have been determined by [employer] [place]. It has not been cleared or approved by the U.S. Food and Drug Administrat ion. This assay has been validated pursuant to the CLIA regulations and is used for clinical purposes. Test Performed by [facility], [employer] [place], [address] [place] [address] Yoan Bach M.D., Ph.D., Director of Laboratorie s , CLIA [id number] TEST PERFORMED AT: , Ordering Provider: GEORGIA LUEVANO Report Released Date/Time: Oct 01, 2023 12:05 PM Reporting Lab: [facility] [address] [address] Performing Lab: [facility] [address] [address] [facility] VITAMIN D 25-[place] (Therapy monitor) 25-HYDROXY VITAMIN D3 [MASS/VOLU ME] IN SERUM OR PLASMA 44 ng/mL 11/04 [...] additional information , please refer to http://educ ation.[employer] .Airseed/faq/FA Q199 (This link is being provided for information al/ educational purposes only.) This test was developed and its analytical performance characteris tics have been determined by [employer] [place]. It has not been cleared or approved by the U.S. Food and Drug Administrat ion. This assay has been validated pursuant to the CLIA regulations and is used for clinical purposes. This test was developed and its analytical performance characteris tics have been determined by [employer] [place]. It has not been cleared or approved by the U.S. Food and Drug Administrat ion. This assay has been validated pursuant to the CLIA regulations and is used for clinical purposes. Test Performed by [facility], [employer] [facility], [address] [place] [address] Yoan Bach M.D., Ph.D., Director of Laboratorie s , CLIA [id number] TEST PERFORMED AT: , Ordering Provider: GEORGIA LUEVANO Report Released Date/Time: Oct 01, 2023 12:05 PM Reporting Lab: [facility] [address] [facility] [address] Performing Lab: [facility] [address] [address] [facility] VITAMIN D 25-[place] (Therapy monitor) CALCIFEROL (VIT D2) [MASS/VOLU ME] IN SERUM OR PLASMA <4ng/mL 11/04 Specimen Type: SERUM Comment: Vitamin D, [...] additional information , please refer to http://educ ation.[employer] .Airseed/faq/FA Q199 (This link is being provided for information al/ educational purposes only.) This test was developed and its analytical performance characteris tics have been determined by [employer] [place]. It has not been cleared or approved by the U.S. Food and Drug Administrat ion. This assay has been validated pursuant to the CLIA regulations and is used for clinical purposes. This test was developed and its analytical performance characteris tics have been determined by [employer] [place]. It has not been cleared or approved by the U.S. Food and Drug Administrat ion. This assay has been validated pursuant to the CLIA regulations and is used for clinical purposes. Test Performed by [facility], [employer] [facility], [address] [place] [address] Yoan Bach M.D., Ph.D., Director of Laboratorie s , CLIA [id number] TEST PERFORMED AT: , Ordering Provider: GEORGIA LUEVANO Report Released Date/Time: Oct 01, 2023 12:05 PM Reporting Lab: [facility] [address] [facility] [address] Performing Lab: [place] 054435 [facility], [address] [place] [address] [place] BASIC METABOLI C PANEL (fasting ) UREA NITROGEN [MASS/VOLU ME] IN SERUM OR PLASMA 17 mg/dL 7 - 25 11/04 Specimen Type: SERUM No comment entered. Ordering Provider: GEORGIA LUEVANO Report Released Date/Time: Oct 01, 2023 12:05 PM Reporting Lab: [facility] [address] [address] Performing Lab: [facility] [address] [address] [place] [employer] BASIC METABOLI C PANEL (fasting ) GLUCOSE [MASS/VOLU ME] IN SERUM OR PLASMA 106 mg/dL 65 - 100 11/04 H Specimen Type: SERUM No comment entered. Ordering Provider: GEORGIA LUEVANO Report Released Date/Time: Oct 01, 2023 12:05 PM Reporting Lab: [address] [address] Performing Lab: [facility] [address] [address] [place] [employer] BASIC METABOLI C PANEL (fasting ) SODIUM [MOLES/VOL UME] IN SERUM OR PLASMA 143 mmol/L 135 - 145 11/04 Specimen Type: SERUM No comment entered. Ordering Provider: GEORGIA LUEVANO Report Released Date/Time: Oct 01, 2023 12:05 PM Reporting Lab: [address] [address] Performing Lab: [facility] [address] [address] [place] [employer] BASIC METABOLI C PANEL (fasting ) POTASSIUM [MOLES/VOL UME] IN SERUM OR PLASMA 3.9 mmol/L 3.5 - 5.0 11/04 Specimen Type: SERUM No comment entered. Ordering Provider: GEORGIA LUEVANO Report Released Date/Time: Oct 01, 2023 12:05 PM Reporting Lab: [address] [address] Performing Lab: [facility] [address] [address] [place] BASIC METABOLI C PANEL (fasting ) CHLORIDE [MOLES/VOL UME] IN SERUM OR PLASMA 107 mmol/L 100 - 110 11/04 Specimen Type: SERUM No comment entered. Ordering Provider: GEORGIA LUEVANO Report Released Date/Time: Oct 01, 2023 12:05 PM Reporting Lab: [address] [address] Performing Lab: [address] [address] [place] BASIC METABOLI C PANEL (fasting ) CARBON DIOXIDE, TOTAL [MOLES/VOL UME] IN SERUM OR PLASMA 26 meq/L 20 - 30 11/04 Specimen Type: SERUM No comment entered. Ordering Provider: GEORGIA LUEVANO Report Released Date/Time: Oct 01, 2023 12:05 PM Reporting Lab: [address] [address] Performing Lab: [address] [address] [place] BASIC METABOLI C PANEL (fasting ) CREATININE [MASS/VOLU ME] IN SERUM OR PLASMA 1.15 mg/dL 0.50 - 1.40 11/04 Specimen Type: SERUM No comment entered. Ordering Provider: GEORGIA LUEVANO Report Released Date/Time: Oct 01, 2023 12:05 PM Reporting Lab: [address] [address] Performing Lab: [address] [address] [place] BASIC METABOLI C PANEL (fasting ) GLOMERULAR FILTRATION RATE/1.73 SQ M.PREDICTE D [VOLUME RATE/AREA] IN SERUM, PLASMA OR BLOOD BY CREATININE -BASED FORMULA (CKD-EPI 2020) 68 mL/min 60 11/04 Specimen Type: SERUM No comment entered. Ordering Provider: GEORGIA LUEVANO Report Released Date/Time: Oct 01, 2023 12:05 PM Reporting Lab: [facility] [address] [facility] [address] Performing Lab: [facility] [address] [facility] [address] [place] LIPID PANEL FASTING CHOLESTERO L [MASS/VOLU ME] IN SERUM OR PLASMA 131 mg/dL 11/04 Specimen Type: SERUM No comment entered. Ordering Provider: GEORGIA LUEVANO Report Released Date/Time: Oct 01, 2023 12:05 PM Reporting Lab: [facility] [address] [facility] [address] Performing Lab: [facility] [address] [address] [place] LIPID PANEL FASTING TRIGLYCERI DE [MASS/VOLU ME] IN SERUM OR PLASMA 207 mg/dL 0 - 150 11/04 H Specimen Type: SERUM No comment entered. Ordering Provider: GEORGIA LUEVANO Report Released Date/Time: Oct 01, 2023 12:05 PM Reporting Lab: [facility] [address] [address] Performing Lab: [facility]WO[facility]ERN [address] [address] [place] LIPID PANEL FASTING CHOLESTERO L IN LDL [MASS/VOLU ME] IN SERUM OR PLASMA BY CALCULATIO N 58 mg/dL 0 - 129 11/04 Specimen Type: SERUM No comment entered. Ordering Provider: GEORGIA LUEVANO Report Released Date/Time: Oct 01, 2023 12:05 PM Reporting Lab: [facility] [address] [address] Performing Lab: [facility]WO[facility]ERN [address] [address] [place] LIPID PANEL FASTING CHOLESTERO L.TOTAL/CH OLESTEROL IN HDL [MASS RATIO] IN SERUM OR PLASMA 4.1 11/04 Specimen Type: SERUM No comment entered. Ordering Provider: GEORGIA LUEVANO Report Released Date/Time: Oct 01, 2023 12:05 PM Reporting Lab: [facility] [address] [facility] [address] Performing Lab: [facility] [address] [address] [place] LIPID PANEL FASTING CHOLESTERO L IN HDL [MASS/VOLU ME] IN SERUM OR PLASMA 32 mg/dL 40 - 60 11/04 L Specimen Type: SERUM No comment entered. Ordering Provider: GEORGIA LUEVANO Report Released Date/Time: Oct 01, 2023 12:05 PM Reporting Lab: [facility] [address] [address] Performing Lab: [address] [address] [place] LIVER FUNCTION PROTEIN [MASS/VOLU ME] IN SERUM OR PLASMA 7.3 g/dL 6.0 - 8.3 11/04 Specimen Type: SERUM No comment entered. Ordering Provider: GEORGIA LUEVANO Report Released Date/Time: Oct 01, 2023 12:05 PM Reporting Lab: [facility] [address] [address] Performing Lab: [address] [address] [place] LIVER FUNCTION ALBUMIN [MASS/VOLU ME] IN SERUM OR PLASMA 3.9 g/dL 3.5 - 5.0 11/04 Specimen Type: SERUM No comment entered. Ordering Provider: GEORGIA LUEVANO Report Released Date/Time: Oct 01, 2023 12:05 PM Reporting Lab: [address] [address] Performing Lab: [address] [address] [place] FUNCTION ALKALINE PHOSPHATAS E [ENZYMATIC ACTIVITY/V OLUME] IN SERUM OR PLASMA 87 U/L 40 - 150 11/04 Specimen Type: SERUM No comment entered. Ordering Provider: GEORGIA LUEVANO Report Released Date/Time: Oct 01, 2023 12:05 PM Reporting Lab: [facility] [address] [address] Performing Lab: [address] [address] [place] LIVER FUNCTION ASPARTATE AMINOTRANS FERASE [ENZYMATIC ACTIVITY/V OLUME] IN SERUM OR PLASMA 40 U/L 5 - 34 11/04 H Specimen Type: SERUM No comment entered. Ordering Provider: GEORGIA LUEVANO Report Released Date/Time: Oct 01, 2023 12:05 PM Reporting Lab: [facility] [address] [address] Performing Lab: [address] [address] [place] LIVER FUNCTION ALANINE AMINOTRANS FERASE [ENZYMATIC ACTIVITY/V OLUME] IN SERUM OR PLASMA 31 U/L 11/04 Specimen Type: SERUM No comment entered. Ordering Provider: GEORGIA LUEVANO Report Released Date/Time: Oct 01, 2023 12:05 PM Reporting Lab: [address] [address] Performing Lab: [address] [address] [place] LIVER FUNCTION BILIRUBIN. TOTAL [MASS/VOLU ME] IN SERUM OR PLASMA 0.5 mg/dL 0.2 - 1.2 11/04 Specimen Type: SERUM No comment entered. Ordering Provider: GEORGIA LUEVANO Report Released Date/Time: Oct 01, 2023 12:05 PM Reporting Lab: [address] [address] Performing Lab: [address] [address] [place] CBC AND DIFF (AUTO) LEUKOCYTES [#/VOLUME] IN BLOOD BY AUTOMATED COUNT 5.07 10*3/uL 4.50 - 11.00 11/04 Specimen Type: BLOOD No comment entered. Ordering Provider: GEORGIA LUEVANO Report Released Date/Time: Oct 01, 2023 12:05 PM Reporting Lab: [facility] [address] [facility] [address] Performing Lab: [facility] [address] [address] [place] CBC AND DIFF (AUTO) ERYTHROCYT ES [#/VOLUME] IN BLOOD BY AUTOMATED COUNT 4.11 10*6/uL 4.23 - 5.66 11/04 L Specimen Type: BLOOD No comment entered. Ordering Provider: GEORGIA LUEVANO Report Released Date/Time: Oct 01, 2023 12:05 PM Reporting Lab: [facility]RL [facility] [address] [address] Performing Lab: [facility]ITALRBROOKWO[facility] CENTERN [facility]ITALUSE[address] [address] [place] CBC AND DIFF (AUTO) HEMOGLOBIN [MASS/VOLU ME] IN BLOOD 12.6 g/dL 12.8 - 17 11/04 L Specimen Type: BLOOD No comment entered. Ordering Provider: GEORGIA LUEVANO Report Released Date/Time: Oct 01, 2023 12:05 PM Reporting Lab: [facility] [address] [address] Performing Lab: [facility]ITALUSETS [address] [address] [place] CBC AND DIFF (AUTO) HEMATOCRIT [VOLUME FRACTION] OF BLOOD BY AUTOMATED COUNT 38.3 39.2 - 50.4 11/04 L Specimen Type: BLOOD No comment entered. Ordering Provider: GEORGIA LUEVANO Report Released Date/Time: Oct 01, 2023 12:05 PM Reporting Lab: [facility]ITALUSETS [address] [address] Performing Lab: [facility]OSPITALRNORTHPORT MEDICAL CENTERTRN [facility]OSPITALUSE[address] [address] [place] CBC AND DIFF (AUTO) MCV [ENTITIC VOLUME] BY AUTOMATED COUNT 93.2 fL 82 - 99 11/04 Specimen Type: BLOOD No comment entered. Ordering Provider: GEORGIA LUEVANO Report Released Date/Time: Oct 01, 2023 12:05 PM Reporting Lab: [facility] WSTRN [facility] HOSPITALUSETS [facility] [address] [facility] [address] Performing Lab: [facility]N [facility]ITALUSETS [facility] [address] [facility] [address] [place] CBC AND DIFF (AUTO) MCHC [MASS/VOLU ME] BY AUTOMATED COUNT 32.9 g/dL 30.8 - 35.1 11/04 Specimen Type: BLOOD No comment entered. Ordering Provider: GEORGIA LUEVANO Report Released Date/Time: Oct 01, 2023 12:05 PM Reporting Lab: [facility] [address] [facility] [address] Performing Lab: [facility]OSPITALRNORTHPORT MEDICAL CENTERTRN [facility]OS[facility]ITALUSE[address] [address] [place] CBC AND DIFF (AUTO) PLATELETS [#/VOLUME] IN BLOOD BY AUTOMATED COUNT 220 10*3/uL 140 - 360 11/04 Specimen Type: BLOOD No comment entered. Ordering Provider: GEORGIA LUEVANO Report Released Date/Time: Oct 01, 2023 12:05 PM Reporting Lab: [facility]OSPITALRNORTHPORT MEDICAL CENTERTRN [facility] [address] [facility] [address] Performing Lab: [facility]N [facility]ITALUSE[address] [address] [place] CBC AND DIFF (AUTO) ERYTHROCYT E DISTRIBUTI ON WIDTH [RATIO] BY AUTOMATED COUNT 14.1 12.0 - 16.0 11/04 Specimen Type: BLOOD No comment entered. Ordering Provider: GEORGIA LUEVANO Report Released Date/Time: Oct 01, 2023 12:05 PM Reporting Lab: [facility] WSTRN [facility]OSPITALUSETS [address] [address] Performing Lab: [facility]RL [facility]N [facility]ITALUSE[address] [address] [place] CBC AND DIFF (AUTO) MONOCYTES [#/VOLUME] IN BLOOD BY AUTOMATED COUNT 0.49 10*3/uL 0.30 - 1.10 11/04 Specimen Type: BLOOD No comment entered. Ordering Provider: GEORGIA LUEVANO Report Released Date/Time: Oct 01, 2023 12:05 PM Reporting Lab: [place] [facility] [place] [facility] [address] [facility] [address] Performing Lab: [place] [facility] [place] [facility] [address] [facility] [address] [place] CBC AND DIFF (AUTO) MCH [ENTITIC MASS] BY AUTOMATED COUNT 30.7 pg 26.2 - 32.6 11/04 Specimen Type: BLOOD No comment entered. Ordering Provider: GEORGIA LUEVANO Report Released Date/Time: Oct 01, 2023 12:05 PM Reporting Lab: [place] [facility] [place] [facility] [address] [facility] [address] Performing Lab: [place] [facility] [place] [place] [address] [address] [place] CBC AND DIFF (AUTO) NEUTROPHIL S/100 LEUKOCYTES IN BLOOD BY AUTOMATED COUNT 48.8 43.7 - 75.8 11/04 Specimen Type: BLOOD No comment entered. Ordering Provider: GEORGIA LUEVANO Report Released Date/Time: Oct 01, 2023 12:05 PM Reporting Lab: [place] [facility] [place] [address] [address] Performing Lab: [place] [facility] [place] [place] [address] [address] [place] CBC AND DIFF (AUTO) LYMPHOCYTE S/100 LEUKOCYTES IN BLOOD BY AUTOMATED COUNT 37.5 14.0 - 42.3 11/04 Specimen Type: BLOOD No comment entered. Ordering Provider: GEORGIA LUEVANO Report Released Date/Time: Oct 01, 2023 12:05 PM Reporting Lab: [place] [facility] [place] [address] [address] Performing Lab: [place] [facility] [place] [address] [address] [place] CBC AND DIFF (AUTO) MONOCYTES/ 100 LEUKOCYTES IN BLOOD BY AUTOMATED COUNT 9.7 5.1 - 13.7 11/04 Specimen Type: BLOOD No comment entered. Ordering Provider: GEORGIA LUEVANO Report Released Date/Time: Oct 01, 2023 12:05 PM Reporting Lab: [facility]CH[facility] [address] [facility] [address] Performing Lab: [place] [facility] W[facility]ITALUSETS [address] [address] [place] CBC AND DIFF (AUTO) EOSINOPHIL S/100 LEUKOCYTES IN BLOOD BY AUTOMATED COUNT 3.2 0.4 - 6.8 11/04 Specimen Type: BLOOD No comment entered. Ordering Provider: GEORGIA LUEVANO Report Released Date/Time: Oct 01, 2023 12:05 PM Reporting Lab: [place] [facility]ITALUS[facility] [address] [address] Performing Lab: [place] CNTRNOR[facility]PORT MED[facility] CENTERTRN [facility]ITALUSE[address] [address] [place] CBC AND DIFF (AUTO) BASOPHILS/ 100 LEUKOCYTES IN BLOOD BY AUTOMATED COUNT 0.6 0.1 - 2.0 11/04 Specimen Type: BLOOD No comment entered. Ordering Provider: GEORGIA LUEVANO Report Released Date/Time: Oct 01, 2023 12:05 PM Reporting Lab: [facility] [address] [address] Performing Lab: [place] [facility] [address] [address] [place] CBC AND DIFF (AUTO) NEUTROPHIL S [#/VOLUME] IN BLOOD BY AUTOMATED COUNT 2.48 10*3/uL 2.20 - 7.60 11/04 Specimen Type: BLOOD No comment entered. Ordering Provider: GEORGIA LUEVANO Report Released Date/Time: Oct 01, 2023 12:05 PM Reporting Lab: [place] [facility] [address] [address] Performing Lab: [facility] [address] [address] [place] CBC AND DIFF (AUTO) LYMPHOCYTE S [#/VOLUME] IN BLOOD BY AUTOMATED COUNT 1.90 10*3/uL 1.00 - 3.20 11/04 Specimen Type: BLOOD No comment entered. Ordering Provider: GEORGIA LUEVANO Report Released Date/Time: Oct 01, 2023 12:05 PM Reporting Lab: [facility]USE[address] [address] Performing Lab: [facility]USE[address] [address] [place] CBC AND DIFF (AUTO) EOSINOPHIL S [#/VOLUME] IN BLOOD BY AUTOMATED COUNT 0.16 10*3/uL 0.03 - 0.44 11/04 Specimen Type: BLOOD No comment entered. Ordering Provider: GEORGIA LUEVANO Report Released Date/Time: Oct 01, 2023 12:05 PM Reporting Lab: [facility]ERN [address] [address] Performing Lab: [facility]ENTERN [address] [address] [place] CBC AND DIFF (AUTO) BASOPHILS [#/VOLUME] IN BLOOD BY AUTOMATED COUNT 0.03 10*3/uL 0.01 - 0.13 11/04 Specimen Type: BLOOD No comment entered. Ordering Provider: GEORGIA LUEVANO Report Released Date/Time: Oct 01, 2023 12:05 PM Reporting Lab: [facility]ENTERTRN [address] [address] Performing Lab: [facility]USE[address] [address] [place] CBC AND DIFF (AUTO) IMMATURE GRANULOCYT ES/100 LEUKOCYTES IN BLOOD BY AUTOMATED COUNT 0.2 0.0 - 0.7 11/04 Specimen Type: BLOOD No comment entered. Ordering Provider: GEORGIA LUEVANO Report Released Date/Time: Oct 01, 2023 12:05 PM Reporting Lab: [facility]TRN [facility]USETS [address] [address] Performing Lab: [facility]TRN [facility] [address] [place] CBC AND DIFF (AUTO) IMMATURE GRANULOCYT ES [#/VOLUME] IN BLOOD 0.01 10*3/uL 0.00 - 0.06 11/04 Specimen Type: BLOOD No comment entered. Ordering Provider: GEORGIA LUEVANO Report Released Date/Time: Oct 01, 2023 12:05 PM Reporting Lab: [facility] [address] [address] Performing Lab: [address] [address] [place] HEMOGLOB IN A1C PANEL HEMOGLOBIN A1C/HEMOGL OBIN.TOTAL IN BLOOD BY HPLC 5.6 4.0 - [...] Oct 01, 2023 12:05 PM Reporting Lab: [facility] [address] [address] Performing Lab: [address] [address] [place] TSH THYROTROPI N [UNITS/VOL UME] IN SERUM OR PLASMA 1.63 u[IU]/mL 0.35 - 5.00 11/04 Specimen Type: SERUM No comment entered. Ordering Provider: GEORGIA LUEVANO Report Released Date/Time: Oct 01, 2023 12:05 PM Reporting Lab: [facility] [address] [address] Performing Lab: [facility] [address] [address] [place] Vital Signs Combined list of inpatient and outpatient Vital Signs from Department of Defense and Veterans Affairs, ranging from 12 months to all on record, depending upon the facility. Vital Sign Value Date Comments Source SYSTOLIC BLOOD PRESSURE 163 05/05/2024 10:00:43 [facility] DIASTOLIC BLOOD PRESSURE 88 05/05/2024 10:00:43 [facility] PULSE OXIMETRY 96 05/05/2024 10:00:43 [place] WEIGHT 200 05/05/2024 10:00:43 [place] BMI 30 kg/m2 05/05/2024 10:00:43 [place] PULSE 71 05/05/2024 10:00:43 [place] SYSTOLIC BLOOD PRESSURE 142 02/01/2024 14:40:00 [facility] DIASTOLIC BLOOD PRESSURE 92 02/01/2024 14:40:00 [facility] PULSE 68 02/01/2024 14:40:00 [facility] SYSTOLIC BLOOD PRESSURE 157 01/03/2024 13:04:04 [facility] DIASTOLIC BLOOD PRESSURE 83 01/03/2024 13:04:04 [facility] PULSE OXIMETRY 95 01/03/2024 13:04:04 [place] WEIGHT 196 01/03/2024 13:04:04 [place] BMI 30 kg/m2 01/03/2024 13:04:04 [place] PULSE 74 01/03/2024 13:04:04 [place] Encounters Combined list of: 1) Encounters from Department of Veterans Affairs facilities going backup to the last 18 months, not all [place] inpatient encounters are included; 2) Encounters from the Department of [facility] facilities going backup to 280 months. Location Location Details Encounter Type Encounter Number Reason For Visit Attending Provider ADM Date DC Date Status Disposition Source [place] [facility] [facility] Outpatient Encounter [id number] 09/21 [place] [facility] [place] [facility] [place] [facility] Outpatient Encounter [id number] 09/22 [facility] [place] [facility] [place] [facility] Outpatient Encounter [id number] 09/30 [facility] [place] [facility] OFF[facility] O/P NEW MOD 45 MIN [id number] Diagnos is: ICD-10- CM I10 Essenti al (primar y) hyperte nsion STELEA,CAR MEN F 09/30 [place] [facility] [facility] [facility] Outpatient Encounter [id number] 09/30 [facility] [place] [facility] [facility] [place] En[facility] [id number] 09/30 [facility] [place] [facility] [facility] [place] En[facility] [id number] 09/30 [facility] [place] [facility] [facility] [place] [facility] En[facility] [id number] 10/07 [facility] [place] [facility] UNLISTED SPEC DERM SVC/PX [id number] Diagnos is: ICD-10- CM Z13.89 Encount er for screeni ng for other disorde r Tawanna TOMAS 10/14 [place] [facility] En[facility] [id number] 10/14 [facility] [place] [facility] Outpatient Encounter [id number] Diagnos is: ICD-10- CM L82.1 Other seborrh eic keratos is LEANNE BRADEN 10/17 [facility] [place] [facility] En[facility] [id number] 10/17 [facility] [place] [facility] [facility] [place] En[facility] [id number] 10/18 [facility] [place] [facility] [facility] [place] [facility] En[facility] [id number] 10/19 [facility] [place] [facility] OFF[facility] O/P EST LOW 20 MIN [id number] Diagnos is: ICD-10- CM I10 Essenti al (primar y) hyperte ROLAND Kahn 11/04 [place] [facility] En[facility] [id number] 11/15 [facility] [place] [facility] [facility] En[facility] [id number] 11/24 [facility] [place] [facility] [place] OFF[place] O/P EST MOD 30 MIN [id number] Diagnos is: ICD-10- CM I10 Essenti al (primar y) hyperte ROLAND Kahn 01/02 [place] OFF/OP EST NOVEMBER X REQ PHY/QHP [id number] Diagnos is: ICD-10- CM I10 Essenti al (primar y) hyperte WILL Tran 01/31 [place] [facility] [place] [facility] Outpatient Encounter [id number] 04/05 [facility] [place] [facility] [place] OFF[place] O/P EST MOD 30 MIN [id number] Diagnos is: ICD-10- CM I10 Essenti al (primar y) hyperte ROLAND Kahn 05/05 [place] [facility] En[facility] [id number] 07/21 [facility] [place] [facility] [place] En[facility] [id number] 07/25 [facility] [place] [facility] [facility] [place] En[facility] [id number] 08/10 [facility] [place] [facility] [facility] [place] [facility] Outpatient Encounter [id number] 10/03 [facility] [place] [facility] Social History Combined list of available smoking, tobacco, and other social history from Department of Defense and Veterans Affairs facilities. Social History Type Response Date Comment Sour e Tobacco smoking status [facility] VA-TOBACCO NEVER USED 10/01/2023 [place] [facility] [place] [facility] History of tobacco use VA-TOBACCO FORMER USER 07/12/2018 [facility] History of tobacco use LIFETIME NON-TOBACCO USER 07/13/2017 [facility] Advance Directives List of completed, amended, or rescinded Advance Directives on record at Department of Veterans Affairs facilities. An actual copy of the Directive is not included. Date Advance Directive Provider Source 10/15/2023 [facility]
--- NOTE | 2024-12-22 08:36 | A.OFFVIS_ITS ---
Vital Signs 12/22/24 08:38 Height 5 ft 9 in Weight 202 lb BMI 29.8 BP 150/75 H Blood Pressure Location Lt brachial Position Sitting Pulse 77 Pulse Oximetry (%) 97 Oxygen Delivery Method Room Air Intake Visit Reasons: Anemia/colo screening Intake Note: Patient new consult for 2nd pre colonoscopy screening. Patient denies any GI issues. Motion Designer Required: No Accompanied by: Spouse Allergies No Known Allergies Allergy (Verified 12/22/24 08:33) Medication List - Last Reconciled 12/22/24 by Ysabel Castrejon CNP amlodipine 5 mg PO DAILY ascorbic acid (vitamin C) 500 mg PO DAILY atorvastatin 20 mg PO DAILY calcium [id number]-copyright manager-la 250 mg-40 mg- 125 unit-3.75mg 1 tab PO DAILY cholecalciferol (vitamin D3) 25 mcg PO DAILY sertraline 50 mg PO DAILY trazodone 50 mg PO BEDTIME PRN HPI HPI Anemia/colo screening: Details: Patient is a 74-year-old male with PMH of anxiety and depression, hyperlipidemia and hypertension. He was referred by PCP for further evaluation of anemia and pre colonoscopy screening. Patient is accompanied by his . Reports his first and only colonoscopy was while in [employer] (under age 52) with normal findings. He reports daily bowel movements without difficulty. Denies blood in stools, but upon further questioning confirms occasional hard stools requiring pushing. He admits recent purchase of stool softener bought but has not yet consumed it. He notes black stools without visible blood. Denies muscle or joint pain except for occasional mild knee discomfort, attributed to age and prior knee replacement. No hx of recent muscle injury. 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 He does not recall any IM injection at time of lab collection. Patient denies: fever/chills, n/v, cardiopulmonary symptoms, appetite changes, pyrosis, regurgitation,dysphasia, unintentional wt loss, ab pain, or melena/hematochezia. 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 in summer w/ yard work - family hx as below -tolerated anesthesia in the past without difficulty. [facility] Medical History (Updated 12/22/24 @ 09:50 by Ysabel Castrejon CNP) Constipation Screening for colorectal cancer Anemia History of right inguinal hernia Anxiety and depression Hyperlipidemia Essential hypertension Surgical History Hx of colonoscopy Hx of inguinal herniorrhaphy History of appendectomy History of left knee replacement Family History Father Congenital heart disease Acute myocardial infarction Mother Systemic lupus erythematosus Osteoporosis Social History Housing: House Patient Tobacco Use Status: Former Tobacco user e-Cigarette/Vaping Use: Never Used service: Yes Current occupational status: retired Cognitive needs: No Hearing needs: No Vision needs: Yes Review of Systems Const Reports as per HPI ENT Reports as per HPI Card Reports as per HPI Resp Reports as per HPI GI Reports as per HPI Reports as per HPI Physical Exam Const General: healthy appearing, no acute distress and well developed Nutritional Appearance: well nourished Orientation/consciousness: patient oriented x3 HEENT Head: Yes normal to inspection, Yes normocephalic and Yes atraumatic Face and sinus: Yes normal facial exam Eyes General: appearance normal, both eyes and all related structures Neck Neck: Yes normal visual inspection Resp Effort & Inspection: normal respiratory effort, able to speak in complete sentences, no tracheal deviation and symmetric chest movement Auscultation: clear to auscultation bilaterally Cardio Jugular venous distension: no JVD Rate: regular rate Rhythm: regular rhythm Heart sounds: S1 normal heart sound present, S2 normal heart sound present, no gallops and no murmurs GI Inspection: Yes normal to inspection, No distended and Yes scar (surgical scar - RLQ ) Palpation (GI): Soft to palpation, not firm, nontender and No hepatosplenomegaly present Auscultation: normal bowel sounds Neuro General: patient oriented x3 Gait exam (Neuro): Normal gait present Psych Appearance: grossly normal Mental Status: mental status grossly normal Speech and movement: Normal speech and movement present Affect: normal affect Attitude: cooperative Thought process: Normal thought process present Thought content: Normal thought content present Insight: Good insight present (Psych) Judgement: Good judgement present (Psych) Assessment & Plan Assessment & Plan (1) Anemia: Code(s): D64.9 - Anemia, unspecified Category: Medical Qualifiers: Anemia type: unspecified type Qualified Code(s): D64.9 - Anemia, unspecified Plan: Normocytic anemia dating back to 01/2024. CK and vitamin b12 also elevated at last collection. DDX: ACD secondary to endocrine related d/o vs inflammatory process; blood dis order, malignancy Additional Tests: Repeat labs (CBC, lytes, renal, LFTs, B12) + CK isoenzymes; fasting required, colonoscopy Medications: Hold vitamin B12; continue other meds (2) Screening for colorectal cancer: Code(s): Z12.11 - Encounter for screening for malignant neoplasm of colon; Z12.12 - Encounter for screening for malignant neoplasm of rectum Category: Medical Plan: Last colonoscopy > 10 years ago by outside facility, results unknown. He is agreeable to colonoscopy to r/o GI bleed, polyps, malignancy Diagnostic Tests: Prescriptions for laxative tablets and Miralax sent to pharmacy; instructions for Gatorade purchase and clear liquid diet given. Patient educated on procedure preparation, including avoiding certain foods and ensuring clear liquid intake. Advised on necessity for ride post-procedure due to sedation. (3) Constipation: Code(s): K59.00 - Constipation, unspecified Category: Medical Qualifiers: Constipation type: unspecified constipation type Qualified Code(s): K59.00 - Constipation, unspecified (4) Hyperlipidemia: Code(s): E78.5 - Hyperlipidemia, unspecified Category: Medical Qualifiers: Hyperlipidemia type: mixed hyperlipidemia Qualified Code(s): E78.2 - Mixed hyperlipidemia Plan: - Lipid panel per PCP; last checked Aug 2024, continue routine monitoring - Medications: Continue atorvastatin - Lifestyle Modifications: Continue heart-healthy diet (fruits, vegetables, lean meats, healthy fats), regular exercise, minimize fried foods/sweets - Follow-Up: Lipid management w/ PCP; review at next GI visit as needed Plan Carroll would like to follow up after labs. RTC sooner as needed. Time: I spent a total of 50 minutes on the date of encounter which includes: Preparing to see the patient (reviewed previous documentation, test results and medical history) Performing a medically appropriate exam and/or evaluation Ordering medications, tests, and procedures Documenting clinical information in the health record Orders: Orders Vitamin B12 and Folate Today D64.9 - Anemia, unspecified Comprehensive Met. Panel Today D64.9 - Anemia, unspecified CK, Total+Isoenzymes, Serum Today R74.8 - Abnormal levels of other serum enzymes Complete Blood Count Auto Diff Today D64.9 - Anemia, unspecified TSH reflex Free T4 Today K59.00 - Constipation, unspecified Hemoglobin A1c Today D64.9 - Anemia, unspecified Medications: New bisacodyl Take four tablets once for 1 day per colonoscopy instructions 5 mg PO ONCE 1 day 4 tabs 0RF polyethylene glycol 3350 (Miralax) per colonoscopy prep instructions 238 grams PO ONCE 238 grams 0RF Coding Level of Care Code New Pt New Pt Level 5 (56325) Patient Type New Diagnoses Anemia, unspecified type D64.9 Anemia type: unspecified type Screening for colorectal cancer Z12.11; Z12.12 Constipation, unspecified constipation type K59.00 Constipation type: unspecified constipation type Mixed hyperlipidemia E78.2 Hyperlipidemia type: mixed hyperlipidemia
[2024-12-22 08:38] VITALS: BP 150/75; PULSE 77; O2SAT 97; BMI 29.8
== END 2024-12-22 09:21 | disposition home or self-care (01) ==
LOC: HO.HGI 08:31
PROVIDERS: PCP Internal Medicine; Visit Provider Nurse Practitioner Family
DX: D64.9 Anemia, unspecified (principal); K59.00 Constipation, unspecified; Z12.11 Encounter for screening for malignant neoplasm of colon; Z12.12 Encounter for screening for malignant neoplasm of rectum; E78.2 Mixed hyperlipidemia
CPT/HCPCS: 99204

== ENCOUNTER → 2024-12-22 08:30 | Outpatient (BNVA) | payer MEDICARE, SELFPAY | PROVIDERS: PCP Internal Medicine; Visit Provider Nurse Practitioner Family | DX: Z13.89 Encounter for screening for other disorder (principal) | CPT/HCPCS: 99202 ==

== ENCOUNTER 2024-12-22 09:44 | Outpatient (REF) | payer MEDICARE, SELFPAY ==
[2024-12-22 13:13] LABS: MANUAL DIFF FLAG NO
[2024-12-22 13:26] LABS: Basophils Percent Auto 0.5 % (0-2); Eosinophils Absolute Auto 0.2 X10*3/uL (0.0-0.4); Eosinophils Percent Auto 2.7 % (0-4); Hemoglobin 13.4 g/dl (14.0-18.0); Imm Gran Abs Auto 0.03 X10*3/uL (0.00-0.03); Imm Gran Pct Auto 0.5 % (0.0-0.4); Lymphocytes Absolute Auto 1.9 X10*3/uL (1.2-4.9); Lymphocytes Percent Auto 33.9 % (20-40); Mean Corpuscular HGB Conc 33.5 g/dl (31.0-36.0); Mean Corpuscular Hemoglobin 31.3 pg (27.0-33.0); Mean Corpuscular Volume 93.5 fL (80.0-98.0); Mean Platelet Volume 10.2 fL (9.4-12.4); Monocytes Absolute Auto 0.5 X10*3/uL (0.1-1.2); Monocytes Percent Auto 9.5 % (2-11); Neutrophils Absolute Auto 2.9 x10*3/uL (2.0-8.3); Neutrophils Percent Auto 52.9 % (45-73); Platelet Count 222 X10*3/uL (160-400); Red Blood Count 4.28 X10*6/uL (4.60-5.80); Red Cell Distribution Width 14.5 % (11.0-16.0); White Blood Count 5.5 X10*3/uL (4.8-10.8)
[2024-12-22 14:03] LABS: Alanine Aminotransferase 32 U/L (0-40); Albumin Level 4.5 g/dL (3.5-5.0); Alkaline Phosphatase 79 U/L (39-117); Anion Gap 10 (12-20); Aspartate Amino Transferase 30 U/L (5-37); Bilirubin Total 0.5 mg/dL (0.0-1.0); Blood Urea Nitrogen 10 mg/dL (9-16); Calcium 9.6 mg/dL (8.4-10.2); Carbon Dioxide 30 mmol/L (22-29); Chloride 106 mmol/L (96-108); Estimated Glomerular Filt Rate > 60; Glucose Random 112 mg/dL (60-115); Potassium 4.4 mmol/L (3.3-5.1); Sodium 142 mmol/L (135-145); Total Protein 7.8 g/dL (6.5-8.0)
[2024-12-22 14:20] LABS: TSH reflex Free T4 1.93 uIU/mL (0.32-4.0)
[2024-12-22 14:21] LABS: Folate 6.9 ng/mL (> or = 4.0); Vitamin B12 1176 pg/mL (200-900)
[2024-12-25 21:43] LABS: CK-BB None Detected (None Detected); CK-MB 0 % (<5); CK-MM 100 % (95-100); Creatine Kinase,Total,Serum 226 U/L (19-278)
== END 2024-12-22 09:45 | disposition home or self-care (01) ==
LOC: HO.10HDL 09:44
PROVIDERS: Visit Provider Nurse Practitioner Family
DX: R74.8 Abnormal levels of other serum enzymes (principal); D64.9 Anemia, unspecified; K59.00 Constipation, unspecified
CPT/HCPCS: 36415; 80053; 82552; 82607; 82746; 84443; 85025; 99202

== ENCOUNTER 2025-01-16 10:57 | Outpatient (AMB) | payer MEDICARE, SELFPAY ==
--- OUTSIDE RECORDS SUMMARY | 2025-01-16 07:28 | XMS_ITS | Continuity of Care Document ---
Author Name [facility] Organization [facility] Care Team Providers Care Animation Artist Name Role Phone [facility] Unavailable Unavailable Problems Combined list of problems from Department of Defense and Veterans Affairs facilities. It does not include entries that were removed or entered in error. Problem Status Onset Date Problem Type Date of Resolution Comments Source Benign essential hypertension Active Condition [facility] Depression ([facility] 08031091) Active Condition [facility] HTN - Hypertension ([facility] 47605723) [facility] Hyperlipidemia ([facility] 18040707) [place] [facility] Keratosis Active Condition [place] Obesity Active Condition [facility] Under care of multiple providers Active Condition Oct 03 Entered By: DANILO LUEVANO Comment: [place] non [place] PCP: Ketty bartholomew 12/2023 P: [phone] Oct 04, 2023 Entered By: DANILO LUEVANO Comment: [facility] PCP: An aMaria dee 01/2024 P: [phone] Oct 04, 2023 Entered By: DANILO LUEVANO Comment: Optometry: Bucky Alatorre P: [phone] [facility] Urinary frequency Active Condition [facility] Diagnosis: ICD-10-CM I10 Essential (primary) hypertension Active Diagnosis [facility] Diagnosis: ICD-10-CM L82.1 Other seborrheic keratosis Active Diagnosis [facility] Diagnosis: ICD-10-CM Z13.89 Encounter for screening for other disorder Active Diagnosis [facility] Medications Combined list of outpatient medications [...] ACTIVE REGIS GARY K 2017 [facility] AMLODIPINE BESYLATE 5MG TAB TAKE ONE TABLET BY MOUTH ONCE DAILY ORAL ACTIVE [place] 2023 [facility] IELD ASCORBIC ACID 500MG TAB TAKE ONE TABLET BY MOUTH ONCE DAILY ORAL ACTIVE [place],[facility] 2023 [facility] IELD ATORVASTATI N CA 40MG TAB TAKE ONE-HALF TABLET BY MOUTH ONCE DAILY ORAL ACTIVE [place],[facility] 2023 [facility] IELD CYANOCOBALA MIN TAB TAKE BY MOUTH ORAL ACTIVE [place] 2023 [facility] IELD HYDROCHLORO THIAZIDE 25MG TAB TAKE ONE TABLET BY MOUTH EVERY MORNING ORAL ACTIVE GARY,UDA Y K 2017 [facility] HYDROCHLORO THIAZIDE 25MG TAB TAKE ONE TABLET BY MOUTH ONCE DAILY ORAL ACTIVE [place],[facility] 2023 [facility] IELD MULTIVITAMI NS CAP/TAB TAKE ONE TABLET BY MOUTH ONCE DAILY ORAL ACTIVE GARY,UDA Y K 2017 [facility] SERTRALINE HCL 100MG TAB TAKE ONE-HALF TABLET BY MOUTH ONCE DAILY ORAL ACTIVE [place],[facility] 2023 [facility] IELD TRAZODONE HCL 100MG TAB TAKE ONE-HALF TABLET BY MOUTH ONCE DAILY ORAL ACTIVE [place],[facility] 2023 [facility] IELD VITAMIN D3 (CHOLECALCI FEROL) TAB TAKE BY MOUTH ONCE DAILY ORAL ACTIVE [place],[facility] 2023 [facility] IELD VITAMIN E CAP,ORAL TAKE BY MOUTH ORAL ACTIVE [place],[facility] 2023 [facility] IELD Immunizations Combined list of available immunizations from the Department of Defense and Veterans Affairs facilities. 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 Business Banking Representative Status Comments Source INFLUENZA, UNSPECIFIED FORMULATION 2023 88 complet ed HISTORICA L INFORMATI ON - SOURCE UNSPECIFI ED, [facility] TDAP 2023 MATTIE VIVAS RIGHT DELTO ID [id number] 115 complet ed [facility] IELD INFLUENZA, UNSPECIFIED FORMULATION 2022 88 complet ed HISTORICA L INFORMATI ON - FROM PATIENT'S RECALL, [facility] INFLUENZA, SEASONAL, INJECTABLE 2017 [address] [facility] INFLUENZA, SEASONAL, INJECTABLE 2016 141 complet ed Site: Left Deltoid [facility] Results Combined list of [...] Oct 02, 2024 01:07 PM Reporting Lab: [address] [address] Performing Lab: [address] [address] [place] ([facility]) HEPATITI S C ANTIBODY (HCV)-AR C HEPATITIS C VIRUS AB [PRESENCE] IN SERUM NON-REAC TIVE 11/04 Specimen Type: SERUM Comment: Hep C Ab: No HCV antibody detected. If recent infection is suspected or other evidence suggests HCV infection, consider HCV nucleic acid testing Ordering Provider: GEORGIA LUEVANO Report Released Date/Time: Oct 01, 2023 12:05 PM Reporting Lab: [facility] [address] [facility] [address] Performing Lab: [address] [address] [place] HIV 1&2 Ag/Ab SCREEN HIV 1+2 AB+HIV1 P24 AG [PRESENCE] IN SERUM OR PLASMA BY IMMUNOASSA Y NON-REAC TIVE 11/04 Specimen Type: SERUM No comment entered. Ordering Provider: GEORGIA LUEVANO Report Released Date/Time: Oct 01, 2023 12:05 PM Reporting Lab: [address] [address] Performing Lab: [address] [address] [facility] 25-OH (Therapy monitor) 25-HYDROXY [...] additional information , please refer to [email or web address] [email or web address] .[employer]/faq/FA Q199 (This link is being provided for information al/ educational purposes only.) This test was developed and its analytical performance characteris tics have been determined by [employer] [place]. It has not been cleared or approved by the U.S. Food and Drug Administrat ion. This assay has been validated pursuant to the CLIA regulations and is used for clinical purposes. This test was developed and its analytical performance characteris tics have been determined by [employer] [place]. It has not been cleared or approved by the U.S. Food and Drug Administrat ion. This assay has been validated pursuant to the CLIA regulations and is used for clinical purposes. Test Performed by [facility], [employer] [facility], [address] [place] [address] Yoan Bach M.D., Ph.D., Director of Laboratorie s , CLIA [id number] TEST PERFORMED AT: , Ordering Provider: GEORGIA LUEVANO Report Released Date/Time: Oct 01, 2023 12:05 PM Reporting Lab: [facility] [address] [address] Performing Lab: [facility] [address] [address] [facility] VITAMIN D 25-OH (Therapy monitor) 25-HYDROXY [...] additional information , please refer to [email or web address] [email or web address] .[employer]/faq/FA Q199 (This link is being provided for information al/ educational purposes only.) This test was developed and its analytical performance characteris tics have been determined by [employer] [place]. It has not been cleared or approved by the U.S. Food and Drug Administrat ion. This assay has been validated pursuant to the CLIA regulations and is used for clinical purposes. This test was developed and its analytical performance characteris tics have been determined by [employer] [place]. It has not been cleared or approved by the U.S. Food and Drug Administrat ion. This assay has been validated pursuant to the CLIA regulations and is used for clinical purposes. Test Performed by [facility], [facility], [address] [place] [address] Yoan Bach M.D., Ph.D., Director of Laboratorie s , CLIA [id number] TEST PERFORMED AT: , Ordering Provider: GEORGIA LUEVANO Report Released Date/Time: Oct 01, 2023 12:05 PM Reporting Lab: [facility] [address] [facility] [address] Performing Lab: [facility] [address] [address] [facility] VITAMIN D 25-OH (Therapy monitor) CALCIFEROL [...] additional information , please refer to [email or web address] [email or web address].[email or web address] .[employer]/faq/FA Q199 (This link is being provided for information al/ educational purposes only.) This test was developed and its analytical performance characteris tics have been determined by [employer] [place]. It has not been cleared or approved by the U.S. Food and Drug Administrat ion. This assay has been validated pursuant to the CLIA regulations and is used for clinical purposes. This test was developed and its analytical performance characteris tics have been determined by [employer] [place]. It has not been cleared or approved by the U.S. Food and Drug Administrat ion. This assay has been validated pursuant to the CLIA regulations and is used for clinical purposes. Test Performed by [facility], [employer] [facility], [address] [place] [address] Yoan Bach M.D., Ph.D., Director of Laboratorie s , CLIA [id number] TEST PERFORMED AT: , Ordering Provider: GEORGIA LUEVANO Report Released Date/Time: Oct 01, 2023 12:05 PM Reporting Lab: [facility] [address] [facility] [address] Performing Lab: [place] [id number] [facility], [address] [place] [address] [place] BASIC METABOLI C PANEL (fasting ) UREA NITROGEN [MASS/VOLU ME] IN SERUM OR PLASMA 17 mg/dL 7 - 25 11/04 Specimen Type: SERUM No comment entered. Ordering Provider: GEORGIA LUEVANO Report Released Date/Time: Oct 01, 2023 12:05 PM Reporting Lab: [facility] [address] [address] Performing Lab: [facility] [address] [address] [employer] [place] [employer] BASIC METABOLI C PANEL (fasting ) GLUCOSE [MASS/VOLU ME] IN SERUM OR PLASMA 106 mg/dL 65 - 100 11/04 H Specimen Type: SERUM No comment entered. Ordering Provider: GEORGIA LUEVANO Report Released Date/Time: Oct 01, 2023 12:05 PM Reporting Lab: [address] [address] Performing Lab: [facility] [address] [address] [employer] BASIC METABOLI C PANEL (fasting ) SODIUM [MOLES/VOL UME] IN SERUM OR PLASMA 143 mmol/L 135 - 145 11/04 Specimen Type: SERUM No comment entered. Ordering Provider: GEORGIA LUEVANO Report Released Date/Time: Oct 01, 2023 12:05 PM Reporting Lab: [address] [address] Performing Lab: [facility] [address] [address] [employer] BASIC METABOLI C PANEL (fasting ) POTASSIUM [MOLES/VOL UME] IN SERUM OR PLASMA 3.9 mmol/L 3.5 - 5.0 11/04 Specimen Type: SERUM No comment entered. Ordering Provider: GEORGIA LUEVANO Report Released Date/Time: Oct 01, 2023 12:05 PM Reporting Lab: [address] [address] Performing Lab: [facility] [address] [address] [place] BASIC METABOLI C PANEL (fasting ) CHLORIDE [MOLES/VOL UME] IN SERUM OR PLASMA 107 mmol/L 100 - 110 11/04 Specimen Type: SERUM No comment entered. Ordering Provider: GEORGIA LUEVANO Report Released Date/Time: Oct 01, 2023 12:05 PM Reporting Lab: [address] [address] Performing Lab: [address] [address] [place] BASIC METABOLI C PANEL (fasting ) CARBON DIOXIDE, TOTAL [MOLES/VOL UME] IN SERUM OR PLASMA 26 meq/L 20 - 30 11/04 Specimen Type: SERUM No comment entered. Ordering Provider: GEORGIA LUEVANO Report Released Date/Time: Oct 01, 2023 12:05 PM Reporting Lab: [address] [address] Performing Lab: [address] [address] [place] BASIC METABOLI C PANEL (fasting ) CREATININE [MASS/VOLU ME] IN SERUM OR PLASMA 1.15 mg/dL 0.50 - 1.40 11/04 Specimen Type: SERUM No comment entered. Ordering Provider: GEORGIA LUEVANO Report Released Date/Time: Oct 01, 2023 12:05 PM Reporting Lab: [address] [address] Performing Lab: [address] [address] [place] BASIC METABOLI C PANEL (fasting ) GLOMERULAR FILTRATION RATE/1.73 SQ M.PREDICTE D [VOLUME RATE/AREA] IN SERUM, PLASMA OR BLOOD BY CREATININE -BASED FORMULA (CKD-EPI 2020) 68 mL/min 60 11/04 Specimen Type: SERUM No comment entered. Ordering Provider: GEORGIA LUEVANO Report Released Date/Time: Oct 01, 2023 12:05 PM Reporting Lab: [facility] [address] [facility] [address] Performing Lab: [facility] [address] [facility] [address] [place] LIPID PANEL FASTING CHOLESTERO L [MASS/VOLU ME] IN SERUM OR PLASMA 131 mg/dL 11/04 Specimen Type: SERUM No comment entered. Ordering Provider: GEORGIA LUEVANO Report Released Date/Time: Oct 01, 2023 12:05 PM Reporting Lab: [facility] [address] [facility] [address] Performing Lab: [facility] [address] [address] [place] LIPID PANEL FASTING TRIGLYCERI DE [MASS/VOLU ME] IN SERUM OR PLASMA 207 mg/dL 0 - 150 11/04 H Specimen Type: SERUM No comment entered. Ordering Provider: GEORGIA LUEVANO Report Released Date/Time: Oct 01, 2023 12:05 PM Reporting Lab: [facility] [address] [address] Performing Lab: [facility] [address] [address] [place] LIPID PANEL FASTING CHOLESTERO L IN LDL [MASS/VOLU ME] IN SERUM OR PLASMA BY CALCULATIO N 58 mg/dL 0 - 129 11/04 Specimen Type: SERUM No comment entered. Ordering Provider: GEORGIA LUEVANO Report Released Date/Time: Oct 01, 2023 12:05 PM Reporting Lab: [facility] [address] [address] Performing Lab: [facility] [address] [address] [place] LIPID PANEL FASTING CHOLESTERO L.TOTAL/CH OLESTEROL IN HDL [MASS RATIO] IN SERUM OR PLASMA 4.1 11/04 Specimen Type: SERUM No comment entered. Ordering Provider: GEORGIA LUEVANO Report Released Date/Time: Oct 01, 2023 12:05 PM Reporting Lab: [facility] [address] [facility] [address] Performing Lab: [facility] [address] [address] [place] LIPID PANEL FASTING CHOLESTERO L IN HDL [MASS/VOLU ME] IN SERUM OR PLASMA 32 mg/dL 40 - 60 11/04 L Specimen Type: SERUM No comment entered. Ordering Provider: GEORGIA LUEVANO Report Released Date/Time: Oct 01, 2023 12:05 PM Reporting Lab: [facility] [address] [address] Performing Lab: [address] [address] [place] LIVER FUNCTION PROTEIN [MASS/VOLU ME] IN SERUM OR PLASMA 7.3 g/dL 6.0 - 8.3 11/04 Specimen Type: SERUM No comment entered. Ordering Provider: GEORGIA LUEVANO Report Released Date/Time: Oct 01, 2023 12:05 PM Reporting Lab: [facility] [address] [address] Performing Lab: [address] [address] [place] LIVER FUNCTION ALBUMIN [MASS/VOLU ME] IN SERUM OR PLASMA 3.9 g/dL 3.5 - 5.0 11/04 Specimen Type: SERUM No comment entered. Ordering Provider: GEORGIA LUEVANO Report Released Date/Time: Oct 01, 2023 12:05 PM Reporting Lab: [address] [address] Performing Lab: [address] [address] [place]IVER FUNCTION ALKALINE PHOSPHATAS E [ENZYMATIC ACTIVITY/V OLUME] IN SERUM OR PLASMA 87 U/L 40 - 150 11/04 Specimen Type: SERUM No comment entered. Ordering Provider: GEORGIA LUEVANO Report Released Date/Time: Oct 01, 2023 12:05 PM Reporting Lab: [facility] [address] [address] Performing Lab: [address] [address] [place] LIVER FUNCTION ASPARTATE AMINOTRANS FERASE [ENZYMATIC ACTIVITY/V OLUME] IN SERUM OR PLASMA 40 U/L 5 - 34 11/04 H Specimen Type: SERUM No comment entered. Ordering Provider: GEORGIA LUEVANO Report Released Date/Time: Oct 01, 2023 12:05 PM Reporting Lab: [facility] [address] [address] Performing Lab: [address] [address] [place] LIVER FUNCTION ALANINE AMINOTRANS FERASE [ENZYMATIC ACTIVITY/V OLUME] IN SERUM OR PLASMA 31 U/L 11/04 Specimen Type: SERUM No comment entered. Ordering Provider: GEORGIA LUEVANO Report Released Date/Time: Oct 01, 2023 12:05 PM Reporting Lab: [address] [address] Performing Lab: [address] [address] [place] LIVER FUNCTION BILIRUBIN. TOTAL [MASS/VOLU ME] IN SERUM OR PLASMA 0.5 mg/dL 0.2 - 1.2 11/04 Specimen Type: SERUM No comment entered. Ordering Provider: GEORGIA LUEVANO Report Released Date/Time: Oct 01, 2023 12:05 PM Reporting Lab: [address] [address] Performing Lab: [address] [address] [place] CBC AND DIFF (AUTO) LEUKOCYTES [#/VOLUME] IN BLOOD BY AUTOMATED COUNT 5.07 10*3/uL 4.50 - 11.00 11/04 Specimen Type: BLOOD No comment entered. Ordering Provider: GEORGIA LUEVANO Report Released Date/Time: Oct 01, 2023 12:05 PM Reporting Lab: [facility] [address] [facility] [address] Performing Lab: [facility] [address] [address] [place] CBC AND DIFF (AUTO) ERYTHROCYT ES [#/VOLUME] IN BLOOD BY AUTOMATED COUNT 4.11 10*6/uL 4.23 - 5.66 11/04 L Specimen Type: BLOOD No comment entered. Ordering Provider: GEORGIA LUEVANO Report Released Date/Time: Oct 01, 2023 12:05 PM Reporting Lab: [facility] [address] [address] Performing Lab: [facility]ENTERUSE[address] [address] [place] CBC AND DIFF (AUTO) HEMOGLOBIN [MASS/VOLU ME] IN BLOOD 12.6 g/dL 12.8 - 17 11/04 L Specimen Type: BLOOD No comment entered. Ordering Provider: GEORGIA LUEVANO Report Released Date/Time: Oct 01, 2023 12:05 PM Reporting Lab: [facility] [address] [address] Performing Lab: [facility]ETS [address] [address] [place] CBC AND DIFF (AUTO) HEMATOCRIT [VOLUME FRACTION] OF BLOOD BY AUTOMATED COUNT 38.3 39.2 - 50.4 11/04 L Specimen Type: BLOOD No comment entered. Ordering Provider: GEORGIA LUEVANO Report Released Date/Time: Oct 01, 2023 12:05 PM Reporting Lab: [facility] [address] [address] Performing Lab: [facility]ITALR[facility] CAMPUSTRN [facility] CENTERUSE[address] [address] [place] CBC AND DIFF (AUTO) MCV [ENTITIC VOLUME] BY AUTOMATED COUNT 93.2 fL 82 - 99 11/04 Specimen Type: BLOOD No comment entered. Ordering Provider: GEORGIA LUEVANO Report Released Date/Time: Oct 01, 2023 12:05 PM Reporting Lab: [facility] [address] [facility] [address] Performing Lab: [facility] [address] [facility] [address] [place] CBC AND DIFF (AUTO) MCHC [MASS/VOLU ME] BY AUTOMATED COUNT 32.9 g/dL 30.8 - 35.1 11/04 Specimen Type: BLOOD No comment entered. Ordering Provider: GEORGIA LUEVANO Report Released Date/Time: Oct 01, 2023 12:05 PM Reporting Lab: [facility] [address] [facility] [address] Performing Lab: [facility] CAMPUSTRN [facility]ENTERUSE[address] [address] [place] CBC AND DIFF (AUTO) PLATELETS [#/VOLUME] IN BLOOD BY AUTOMATED COUNT 220 10*3/uL 140 - 360 11/04 Specimen Type: BLOOD No comment entered. Ordering Provider: GEORGIA LUEVANO Report Released Date/Time: Oct 01, 2023 12:05 PM Reporting Lab: [facility]ITAL[facility] CAMPUSTRN [facility] [address] [facility] [address] Performing Lab: [facility]ENTERUSE[address] [address] [place] CBC AND DIFF (AUTO) ERYTHROCYT E DISTRIBUTI ON WIDTH [RATIO] BY AUTOMATED COUNT 14.1 12.0 - 16.0 11/04 Specimen Type: BLOOD No comment entered. Ordering Provider: GEORGIA LUEVANO Report Released Date/Time: Oct 01, 2023 12:05 PM Reporting Lab: [facility]ETS [address] [address] Performing Lab: [facility]ENTERUSE[address] [address] [place] CBC AND DIFF (AUTO) MONOCYTES [#/VOLUME] IN BLOOD BY AUTOMATED COUNT 0.49 10*3/uL 0.30 - 1.10 11/04 Specimen Type: BLOOD No comment entered. Ordering Provider: GEORGIA LUEVANO Report Released Date/Time: Oct 01, 2023 12:05 PM Reporting Lab: [facility] [facility] [address] [facility] [address] Performing Lab: [facility] [place] [facility] [address] [facility] [address] [place] CBC AND DIFF (AUTO) MCH [ENTITIC MASS] BY AUTOMATED COUNT 30.7 pg 26.2 - 32.6 11/04 Specimen Type: BLOOD No comment entered. Ordering Provider: GEORGIA LUEVANO Report Released Date/Time: Oct 01, 2023 12:05 PM Reporting Lab: [facility] [place] [facility] [address] [facility] [address] Performing Lab: [facility] [place] [address] [address] [place] CBC AND DIFF (AUTO) NEUTROPHIL S/100 LEUKOCYTES IN BLOOD BY AUTOMATED COUNT 48.8 43.7 - 75.8 11/04 Specimen Type: BLOOD No comment entered. Ordering Provider: GEORGIA LUEVANO Report Released Date/Time: Oct 01, 2023 12:05 PM Reporting Lab: [facility] [place] [address] [address] Performing Lab: [facility] [place] [address] [address] [place] CBC AND DIFF (AUTO) LYMPHOCYTE S/100 LEUKOCYTES IN BLOOD BY AUTOMATED COUNT 37.5 14.0 - 42.3 11/04 Specimen Type: BLOOD No comment entered. Ordering Provider: GEORGIA LUEVANO Report Released Date/Time: Oct 01, 2023 12:05 PM Reporting Lab: [facility] [place] [address] [address] Performing Lab: [facility] [place] [address] [address] [place] CBC AND DIFF (AUTO) MONOCYTES/ 100 LEUKOCYTES IN BLOOD BY AUTOMATED COUNT 9.7 5.1 - 13.7 11/04 Specimen Type: BLOOD No comment entered. Ordering Provider: GEORGIA LUEVANO Report Released Date/Time: Oct 01, 2023 12:05 PM Reporting Lab: [facility] [address] [facility] [address] Performing Lab: [facility]ENTERUSETS [address] [address] [place] CBC AND DIFF (AUTO) EOSINOPHIL S/100 LEUKOCYTES IN BLOOD BY AUTOMATED COUNT 3.2 0.4 - 6.8 11/04 Specimen Type: BLOOD No comment entered. Ordering Provider: GEORGIA LUEVANO Report Released Date/Time: Oct 01, 2023 12:05 PM Reporting Lab: [facility]US[facility] [address] [address] Performing Lab: [facility] CAMPUSTRN [facility]ENTERUSE[address] [address] [place] CBC AND DIFF (AUTO) BASOPHILS/ 100 LEUKOCYTES IN BLOOD BY AUTOMATED COUNT 0.6 0.1 - 2.0 11/04 Specimen Type: BLOOD No comment entered. Ordering Provider: GEORGIA LUEVANO Report Released Date/Time: Oct 01, 2023 12:05 PM Reporting Lab: [facility]ENTERUSETS [address] [address] Performing Lab: [facility] TRN [facility] [address] [address] [place] CBC AND DIFF (AUTO) NEUTROPHIL S [#/VOLUME] IN BLOOD BY AUTOMATED COUNT 2.48 10*3/uL 2.20 - 7.60 11/04 Specimen Type: BLOOD No comment entered. Ordering Provider: GEORGIA LUEVANO Report Released Date/Time: Oct 01, 2023 12:05 PM Reporting Lab: [facility] [address] [address] Performing Lab: [facility] [address] [address] [place] CBC AND DIFF (AUTO) LYMPHOCYTE S [#/VOLUME] IN BLOOD BY AUTOMATED COUNT 1.90 10*3/uL 1.00 - 3.20 11/04 Specimen Type: BLOOD No comment entered. Ordering Provider: GEORGIA LUEVANO Report Released Date/Time: Oct 01, 2023 12:05 PM Reporting Lab: [facility]N [facility] [address] Performing Lab: [facility] [address] [place] CBC AND DIFF (AUTO) EOSINOPHIL S [#/VOLUME] IN BLOOD BY AUTOMATED COUNT 0.16 10*3/uL 0.03 - 0.44 11/04 Specimen Type: BLOOD No comment entered. Ordering Provider: GEORGIA LUEVANO Report Released Date/Time: Oct 01, 2023 12:05 PM Reporting Lab: [facility] [address] [address] Performing Lab: [facility] [address] [address] [place] CBC AND DIFF (AUTO) BASOPHILS [#/VOLUME] IN BLOOD BY AUTOMATED COUNT 0.03 10*3/uL 0.01 - 0.13 11/04 Specimen Type: BLOOD No comment entered. Ordering Provider: GEORGIA LUEVANO Report Released Date/Time: Oct 01, 2023 12:05 PM Reporting Lab: [facility] [address] [address] Performing Lab: [facility] [address] [place] CBC AND DIFF (AUTO) IMMATURE GRANULOCYT ES/100 LEUKOCYTES IN BLOOD BY AUTOMATED COUNT 0.2 0.0 - 0.7 11/04 Specimen Type: BLOOD No comment entered. Ordering Provider: GEORGIA LUEVANO Report Released Date/Time: Oct 01, 2023 12:05 PM Reporting Lab: [facility] [address] [address] Performing Lab: [facility] [address] [place] CBC AND DIFF (AUTO) IMMATURE GRANULOCYT ES [#/VOLUME] IN BLOOD 0.01 10*3/uL 0.00 - 0.06 11/04 Specimen Type: BLOOD No comment entered. Ordering Provider: GEORGIA LUEVANO Report Released Date/Time: Oct 01, 2023 12:05 PM Reporting [facility]: [facility] [address] [address] Performing Lab: [address] [address] [place] HEMOGLOB IN A1C PANEL HEMOGLOBIN [...] Oct 01, 2023 12:05 PM Reporting Lab: [facility] [address] [address] Performing Lab: [address] [address] [place] TSH THYROTROPI N [UNITS/VOL UME] IN SERUM OR PLASMA 1.63 u[IU]/mL 0.35 - 5.00 11/04 Specimen Type: SERUM No comment entered. Ordering Provider: GEORGIA LUEVANO Report Released Date/Time: Oct 01, 2023 12:05 PM Reporting Lab: [facility] [address] [address] Performing Lab: [facility] [address] [address] [place] Vital Signs Combined list of inpatient and outpatient Vital Signs from Department of Defense and Veterans Affairs, ranging from 12 months to all on record, depending upon the facility. Vital Sign Value Date Comments Source SYSTOLIC BLOOD PRESSURE 163 05/05/2024 10:00:43 [facility] DIASTOLIC BLOOD PRESSURE 88 05/05/2024 10:00:43 [facility] PULSE OXIMETRY 96 05/05/2024 10:00:43 Teresa FONSECA WEIGHT 200 05/05/2024 10:00:43 ELIDA GUAN BMI 30 kg/m2 05/05/2024 10:00:43 ELIDA GUAN PULSE 71 05/05/2024 10:00:43 ELIDA GUAN SYSTOLIC BLOOD PRESSURE 142 02/01/2024 14:40:00 AWEN[facility] DIASTOLIC BLOOD PRESSURE 92 02/01/2024 14:40:00 AWENDA[facility] PULSE 68 02/01/2024 14:40:00 ELIDA GUAN Encounters Combined list of: 1) Encounters from Department of Veterans Affairs facilities going backup to the last 18 months, not all VA inpatient encounters are included; 2) Encounters from the Department of [facility] facilities going backup to 280 months. Location Location Details Encounter Type Encounter Number Reason For Visit Attending Provider ADM Date DC Date Status Disposition Source [facility] Encounter [id number] 09/21 [facility]counter [id number] 09/22 [facility] Out[facility] Encounter [id number] 09/30 [facility] OFFICE O/P NEW MOD 45 MIN [id number] Diagnos is: ICD-10- CM I10 Essenti al (primar y) hyperte nsion STELEA,CAR MEN F 09/30 [place] [facility] Encounter [id number] 09/30 [facility] [id number] 09/30 [facility]counter [id number] 09/30 [facility] Encounter [id number] 10/07 [facility] UNLISTED SPEC DERM SVC/PX [id number] Diagnos is: ICD-10- CM Z13.89 Encount er for screeni ng for other disorde r Tawanna TOMAS 10/14 [facility] Outpatient Encounter [id number] 10/14 [facility] Outpatient Encounter [id number] Diagnos is: ICD-10- CM L82.1 Other seborrh eic keratos is LEANNE BRADEN 10/17 [facility] Encounter [id number] 10/17 [facility] Encounter [id number] 10/18 [facility] Encounter [id number] 10/19 [facility] OFFICE O/P EST LOW 20 MIN [id number] Diagnos is: ICD-10- CM I10 Essenti al (primar y) hyperte nsion STELEA,CAR MEN F 11[place] [facility] En[facility] [id number] 11/15 [facility] Encounter [id number] 11/24 [facility] [place] OFFICE O/P EST MOD 30 MIN [id number] Diagnos is: ICD-10- CM I10 Essenti al (primar y) hyperte camila LUEVANOCAR LEXY F 01/02 [place] OFF/OP EST NOVEMBER X REQ PHY/QHP [id number] Diagnos is: ICD-10- CM I10 Essenti al (primar y) hyperte WILL Tran 01/31 [place] [facility] Outpatient Encounter [id number] [facility] [place] OFFICE O/P EST MOD 30 MIN [id number] Diagnos is: ICD-10- CM I10 Essenti al (primar y) hyperte ROLAND Kahn F 05/05 [place] [facility] Out[facility] Encounter [id number] 07/21 [facility] [id number] 07/25 [facility]counter [id number] 08/10 [facility] Outpatient Encounter [id number] [facility] Social History Combined list of available smoking, tobacco, and other social history from Department of Defense and Veterans Affairs facilities. Social History Type Response Date Comment Sourc e Tobacco smoking status [facility] VA-TOBACCO NEVER USED [facility] [facility] History of tobacco use VA-TOBACCO FORMER USER 07/12/2018 [facility] History of tobacco use LIFETIME NON-TOBACCO USER 07/13/2017 [facility] Advance Directives List of completed, amended, or rescinded Advance Directives on record at Department of Veterans Affairs facilities. An actual copy of the Directive is not included. Date Advance Directive Provider Source 10/15/2023 [facility]
[2025-01-16 11:11] VITALS: BP 139/70; PULSE 80; BMI 29.6
--- NOTE | 2025-01-16 11:11 | MHC.OFFVIS ---
Vital Signs 01/16/25 11:11 Height 5 ft 9 in Weight 200 lb 9.93 oz BMI 29.6 BP 139/70 Blood Pressure Location Lt brachial Position Sitting Pulse 80 Intake Visit Reasons: f/u on labs Intake Note: Carroll presents in the office as a follow up to his lab work. CC: States the he is here for results to blood work. [employer] Required: No Allergies No Known Allergies Allergy (Verified 01/16/25 11:12) HPI HPI f/u on labs: Details: Patient is a 74-year-old male with PMH of anxiety and depression, hyperlipidemia and hypertension. Carroll present follow-up labs related to chronic anemia, he is accompanied by his . The anemia was initially detected in previous lab results and confirmed to be stable, although still present. He denies any blood in his stools. His primary gastrointestinal complaint is mild, intermittent constipation, which he has linked to his dietary habits, including high consumption of cookies and bread. He has since switched to whole wheat bread to alleviate constipation. Carroll does not report symptoms typical of inflammatory bowel diseases (IBD) such as Crohn's or ulcerative colitis. Additionally, previous lab results showed some elevated markers related to muscle enzyme levels and liver function, which have normalized on repeat testing. There is a concern for potential diabetes as Carroll?s fasting glucose level was slightly elevated in August, prompting an A1C test to be scheduled. He reports maintaining good hydration habits and has not experienced symptoms such as excessive hunger, thirst, or urination, apart from urinating frequently due to high water intake. [facility] Medical History (Updated 01/16/25 @ 15:28 by Ysabel Castrejon CNP) Elevated fasting glucose Constipation Screening for colorectal cancer Anemia History of right inguinal hernia Anxiety and depression Hyperlipidemia Essential hypertension Surgical History Hx of colonoscopy Hx of inguinal herniorrhaphy History of appendectomy History of left knee replacement Family History Father Congenital heart disease Acute myocardial infarction Mother Systemic lupus erythematosus Osteoporosis Social History Housing: House Patient Tobacco Use Status: Former Tobacco user e-Cigarette/Vaping Use: Never Used service: Yes Current occupational status: retired Cognitive needs: No Hearing needs: No Vision needs: Yes Review of Systems Const Reports as per HPI ENT Reports as per HPI Card Reports as per HPI Resp Reports as per [facility] GI Reports as per [facility] Reports as per [facility] Physical Exam Vital Signs: Last Vital Signs Pulse 80 01/16/25 11:11 BP 139/70 01/16/25 11:11 BMI result Body Mass Index 29.6 Const General: healthy appearing, no acute distress and well developed Nutritional Appearance: well nourished Orientation/consciousness: patient oriented x3 HEENT Head: Yes normal to inspection, Yes normocephalic and Yes atraumatic Face and sinus: Yes normal facial exam Eyes General: appearance normal, both eyes and all related structures Neck Neck: Yes normal visual inspection Resp Effort & Inspection: normal respiratory effort, able to speak in complete sentences, no tracheal deviation and symmetric chest movement Auscultation: clear to auscultation bilaterally Cardio Jugular venous distension: no JVD Rate: regular rate Rhythm: regular rhythm Heart sounds: S1 normal heart sound present, S2 normal heart sound present, no gallops and no murmurs GI Inspection: Yes normal to inspection and No distended Palpation (GI): Soft to palpation, not firm, nontender and No hepatosplenomegaly present Auscultation: normal bowel sounds Neuro General: patient oriented x3 Gait exam (Neuro): Normal gait present Psych Appearance: grossly normal Mental Status: mental status grossly normal Speech and movement: Normal speech and movement present Affect: normal affect Attitude: cooperative Thought process: Normal thought process present Thought content: Normal thought content present Insight: Good insight present (Psych) Judgement: Good judgement present (Psych) Results Reviewed Results Reviewed: Laboratory Tests 09/05/24 12/22/24 09:40 09:50 RBC 4.28 L Hgb 13.4 L Hct 40.0 L MCV 93.5 MCH 31.3 MCHC 33.5 RDW 14.5 Plt Count 222 MPV 10.2 Fasting Glucose 115 H Calcium 9.6 Total Bilirubin 0.5 AST 30 ALT 32 Alkaline Phosphatase 79 Total Creatine Kinase 226 CK-MM (CK-3) 100 CK-BB (CK-1) None Detected Total Protein 7.8 Albumin 4.5 Assessment & Plan Assessment & Plan (1) Elevated fasting glucose: Code(s): R73.01 - Impaired fasting glucose Category: Medical Plan: Slightly elevated fasting glucose in Feb; DM can contribute to chronic anemia via multiple mechanisms (e.g. chronic inflammation) Additional Tests: A1C test. Medications: Not specified. Lifestyle Modifications: Maintain hydration, monitor dietary sugar intake. Follow-Up: Post-A1C test results, no news is good news (2) Anemia: Code(s): D64.9 - Anemia, unspecified Category: Medical Qualifiers: Anemia type: unspecified type Qualified Code(s): D64.9 - Anemia, unspecified Plan: Persistent normocytic anemia with stable labs; GI source must be excluded per GI protocol. No overt GI sx, but colonoscopy indicated to r/o occult bleeding, polyps, or malignancy. Other causes (e.g., IBD) less likely given absence of typical sx. Additional Tests: Colonoscopy ordered at time of last visit r/o GI bleeding or other pathology, procedure date pending. Medications: None specified; continue current regimen. Lifestyle Modifications: Continue dietary adjustments (whole wheat bread, limit processed carbs), maintain hydration. Plan Follow-up after colonoscopy or sooner as needed Time: I spent a total of 15 minutes on the date of encounter which includes: Preparing to see the patient (reviewed previous documentation, test results and medical history) Performing a medically appropriate exam and/or evaluation Ordering medications, tests, and procedures Documenting clinical information in the health record Coding Level of Care Code Established Pt Est Pt Level 3 (89740) Patient Type Established Diagnoses Elevated fasting glucose R73.01 Anemia, unspecified type D64.9 Anemia type: unspecified type
== END 2025-01-16 11:52 | disposition home or self-care (01) ==
LOC: HO.HGI 10:57
PROVIDERS: PCP Internal Medicine; Visit Provider Nurse Practitioner Family
DX: R73.01 Impaired fasting glucose (principal); D64.9 Anemia, unspecified
CPT/HCPCS: 99213

== ENCOUNTER → 2025-01-16 10:57 | Outpatient (BNVA) | payer MEDICARE, SELFPAY | PROVIDERS: PCP Internal Medicine; Visit Provider Nurse Practitioner Family | DX: R73.01 Impaired fasting glucose (principal); D64.9 Anemia, unspecified | CPT/HCPCS: 99212 ==

== ENCOUNTER 2025-01-16 12:02 | Outpatient (REF) | payer MEDICARE, SELFPAY ==
[2025-01-16 13:17] LABS: Estimated Average Glucose 111 mg/dL; Hemoglobin A1c % 5.5 % (<6.0); Total Hemoglobin (HGBA1C) 3453.7982 umol/L
== END 2025-01-16 12:03 | disposition home or self-care (01) ==
LOC: HO.10HDL 12:02
PROVIDERS: Visit Provider Nurse Practitioner Family
DX: D64.9 Anemia, unspecified (principal)
CPT/HCPCS: 36415; 83036

== ENCOUNTER 2025-02-05 08:44 | Outpatient (REF) | payer MEDICARE, SELFPAY ==
--- OUTSIDE RECORDS SUMMARY | 2025-01-16 07:28 | XMS_ITS | Continuity of Care Document ---
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 It does not include entries that were removed or entered in error. Problem Status Onset Date Problem Type Date of Resolution Comments Source Benign essential hypertension Active Condition [facility] Depression ([facility] [id number]) Active Condition [place] HTN - Hypertension ([facility] 10532913) [facility] Active [facility] Hyperlipidemia ([facility] 18481595) Active Condition [facility] [facility] Keratosis Active Condition [place] Obesity Active Condition [facility] Under care of multiple providers Active Condition Oct 03 Entered By: DANILO LUEVANO Comment: [place] PCP: Ketty bartholomew 12/2023 P: [phone] Oct 04, 2023 Entered By: DANILO LUEVANO Comment: [facility] PCP: Ana Maria dee 01/2024 P: [phone] Oct 04, 2023 Entered By: DANILO LUEVANO Comment: Optometry: Bucky Alatorre P: [phone] [facility] [facility] Urinary frequency Active Condition [facility] Diagnosis: ICD-10-CM I10 Essential (primary) hypertension Active Diagnosis [place] Diagnosis: ICD-10-CM L82.1 Other seborrheic keratosis Active Diagnosis [facility] Diagnosis: ICD-10-CM Z13.89 Encounter for screening for other disorder Active Diagnosis [facility] Medications Combined list of outpatient medications [...] ACTIVE REGIS GARY K 2017 [facility] AMLODIPINE BESYLATE 5MG TAB TAKE ONE TABLET BY MOUTH ONCE DAILY ORAL ACTIVE [place] [facility] 2023 [facility] IELD ASCORBIC ACID 500MG TAB TAKE ONE TABLET BY MOUTH ONCE DAILY ORAL ACTIVE [place] [facility] 2023 [facility] IELD ATORVASTATI N CA 40MG TAB TAKE ONE-HALF TABLET BY MOUTH ONCE DAILY ORAL ACTIVE [place] [facility] 2023 [facility] IELD CYANOCOBALA MIN TAB TAKE BY MOUTH ORAL ACTIVE STELEA,CA [facility] 2023 [facility] IELD HYDROCHLORO THIAZIDE 25MG TAB TAKE ONE TABLET BY MOUTH EVERY MORNING ORAL ACTIVE GARY,UDA Y K 2017 [facility] HYDROCHLORO THIAZIDE 25MG TAB TAKE ONE TABLET BY MOUTH ONCE DAILY ORAL ACTIVE STELEA,CA [facility] 2023 [facility] IELD MULTIVITAMI NS CAP/TAB TAKE ONE TABLET BY MOUTH ONCE DAILY ORAL ACTIVE GARY,UDA Y K 2017 [facility] SERTRALINE HCL 100MG TAB TAKE ONE-HALF TABLET BY MOUTH ONCE DAILY ORAL ACTIVE STELEA,[place] [facility] 2023 [facility] IELD TRAZODONE HCL 100MG TAB TAKE ONE-HALF TABLET BY MOUTH ONCE DAILY ORAL ACTIVE STELEA,CA [facility] 2023 [facility] IELD VITAMIN D3 (CHOLECALCI FEROL) TAB TAKE BY MOUTH ONCE DAILY ORAL ACTIVE [place],CA [facility] 2023 [facility] IELD VITAMIN E CAP,ORAL TAKE BY MOUTH ORAL ACTIVE [place]ELE[place] [facility] 2023 [facility] IELD Immunizations Combined list of available immunizations from the Department of Defense and Veterans Affairs facilities. 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 Status Comments Source INFLUENZA, UNSPECIFIED FORMULATION 2023 88 complet ed HISTORICA L INFORMATI ON - SOURCE UNSPECIFI ED, [facility] TDAP 2023 MATTIE VIVAS RIGHT DELTO ID [id number] 115 complet ed [facility] IELD INFLUENZA, UNSPECIFIED FORMULATION 2022 88 complet ed HISTORICA L INFORMATI ON - FROM PATIENT'S RECALL, [facility] [place] [facility] INFLUENZA, SEASONAL, INJECTABLE 2017 141 complet ed [place] [facility] INFLUENZA, SEASONAL, INJECTABLE 2016 141 complet ed Site: Left Deltoid [facility] Results Combined list of [...] Oct 02, 2024 01:07 PM Reporting Lab: [address] [address] Performing Lab: [address] [address] [place] ([facility]) HEPATITI S C ANTIBODY (HCV)-AR C HEPATITIS C VIRUS AB [PRESENCE] IN SERUM NON-REAC TIVE 11/04 Specimen Type: SERUM Comment: Hep C Ab: No HCV antibody detected. If recent infection is suspected or other evidence suggests HCV infection, consider HCV nucleic acid testing Ordering Provider: GEORGIA LUEVANO Report Released Date/Time: Oct 01, 2023 12:05 PM Reporting Lab: [facility] [address] [facility] [address] Performing Lab: [address] [address] [place] HIV 1&2 Ag/Ab SCREEN HIV 1+2 AB+HIV1 P24 AG [PRESENCE] IN SERUM OR PLASMA BY IMMUNOASSA Y NON-REAC TIVE 11/04 Specimen Type: SERUM No comment entered. Ordering Provider: GEORGIA LUEVANO Report Released Date/Time: Oct 01, 2023 12:05 PM Reporting Lab: [address] [address] Performing Lab: [address] [address] [facility] VITAMIN D 25-OH (Therapy monitor) 25-HYDROXY [...] additional information , please refer to [email or web address] [email or web address] .[employer]/faq/FA Q199 (This link is being provided for information al/ educational purposes only.) This test was developed and its analytical performance characteris tics have been determined by [employer] [place]. It has not been cleared or approved by the U.S. Food and Drug Administrat ion. This assay has been validated pursuant to the CLIA regulations and is used for clinical purposes. This test was developed and its analytical performance characteris tics have been determined by [employer] [place] It has not been cleared or approved by the U.S. Food and Drug Administrat ion. This assay has been validated pursuant to the CLIA regulations and is used for clinical purposes. Test Performed by [facility], [facility] [place], [address] [place] [address] Yoan Bach M.D., Ph.D., Director of Laboratorie s , CLIA [id number] TEST PERFORMED AT: , Ordering Provider: GEORGIA LUEVANO Report Released Date/Time: Oct 01, 2023 12:05 PM Reporting Lab: [facility] [address] Performing Lab: [facility] [address] [address] [facility] VITAMIN D 25-OH (Therapy monitor) 25-HYDROXY [...] additional information , please refer to [email or web address] [email or web address] .[employer]/faq/FA Q199 (This link is being provided for information al/ educational purposes only.) This test was developed and its analytical performance characteris tics have been determined by [employer] [place]. It has not been cleared or approved by the U.S. Food and Drug Administrat ion. This assay has been validated pursuant to the CLIA regulations and is used for clinical purposes. This test was developed and its analytical performance characteris tics have been determined by [employer] [place] It has not been cleared or approved by the U.S. Food and Drug Administrat ion. This assay has been validated pursuant to the CLIA regulations and is used for clinical purposes. Test Performed by [facility], [facility][1], [address] [place] [address] Yoan Bach M.D., Ph.D., Director of Laboratorie s , CLIA [id number] TEST PERFORMED AT: , Ordering Provider: GEORGIA LUEVANO Report Released Date/Time: Oct 01, 2023 12:05 PM Reporting Lab: [facility] [address] [facility] [address] Performing Lab: [facility] [address] [address] [facility] VITAMIN D 25-OH (Therapy monitor) CALCIFEROL [...] additional information , please refer to http://educ [email or web address] .[employer]/faq/FA Q199 (This link is being provided for information al/ educational purposes only.) This test was developed and its analytical performance characteris tics have been determined by [facility] [place]. It has not been cleared or approved by the U.S. Food and Drug Administrat ion. This assay has been validated pursuant to the CLIA regulations and is used for clinical purposes. This test was developed and its analytical performance characteris tics have been determined by [employer] [place]. It has not been cleared or approved by the U.S. Food and Drug Administrat ion. This assay has been validated pursuant to the CLIA regulations and is used for clinical purposes. Test Performed by [facility], [facility][1], [address] [place] [address] Yoan Bach M.D., Ph.D., Director of Laboratorie s , CLIA [id number] TEST PERFORMED AT: , Ordering Provider: GEORGIA LUEVANO Report Released Date/Time: Oct 01, 2023 12:05 PM Reporting Lab: [facility] [address] [facility] [address] Performing Lab: [place] [id number] [facility], [address] [place] [address] [place] BASIC METABOLI C PANEL (fasting ) UREA NITROGEN [MASS/VOLU ME] IN SERUM OR PLASMA 17 mg/dL 7 - 25 11/04 Specimen Type: SERUM No comment entered. Ordering Provider: GEORGIA LUEVANO Report Released Date/Time: Oct 01, 2023 12:05 PM Reporting Lab: [facility] [address] [address] Performing Lab: [facility] [address] [address] [employer] BASIC METABOLI C PANEL (fasting ) GLUCOSE [MASS/VOLU ME] IN SERUM OR PLASMA 106 mg/dL 65 - 100 11/04 H Specimen Type: SERUM No comment entered. Ordering Provider: GEORGIA LUEVANO Report Released Date/Time: Oct 01, 2023 12:05 PM Reporting Lab: [address] [address] Performing Lab: [facility] [address] [address] [employer] BASIC METABOLI C PANEL (fasting ) SODIUM [MOLES/VOL UME] IN SERUM OR PLASMA 143 mmol/L 135 - 145 11/04 Specimen Type: SERUM No comment entered. Ordering Provider: GEORGIA LUEVANO Report Released Date/Time: Oct 01, 2023 12:05 PM Reporting Lab: [address] [address] Performing Lab: [facility] [address] [address] [employer] BASIC METABOLI C PANEL (fasting ) POTASSIUM [MOLES/VOL UME] IN SERUM OR PLASMA 3.9 mmol/L 3.5 - 5.0 11/04 Specimen Type: SERUM No comment entered. Ordering Provider: GEORGIA LUEVANO Report Released Date/Time: Oct 01, 2023 12:05 PM Reporting Lab: [address] [address] Performing Lab: [facility] [address] [address] [place] BASIC METABOLI C PANEL (fasting ) CHLORIDE [MOLES/VOL UME] IN SERUM OR PLASMA 107 mmol/L 100 - 110 11/04 Specimen Type: SERUM No comment entered. Ordering Provider: GEORGIA LUEVANO Report Released Date/Time: Oct 01, 2023 12:05 PM Reporting Lab: [address] [address] Performing Lab: [address] [address] [place] BASIC METABOLI C PANEL (fasting ) CARBON DIOXIDE, TOTAL [MOLES/VOL UME] IN SERUM OR PLASMA 26 meq/L 20 - 30 11/04 Specimen Type: SERUM No comment entered. Ordering Provider: GEORGIA LUEVANO Report Released Date/Time: Oct 01, 2023 12:05 PM Reporting Lab: [address] [address] Performing Lab: [address] [address] [place] BASIC METABOLI C PANEL (fasting ) CREATININE [MASS/VOLU ME] IN SERUM OR PLASMA 1.15 mg/dL 0.50 - 1.40 11/04 Specimen Type: SERUM No comment entered. Ordering Provider: GEORGIA LUEAVNO Report Released Date/Time: Oct 01, 2023 12:05 PM Reporting Lab: [address] [address] Performing Lab: [address] [address] [place] BASIC METABOLI C PANEL (fasting ) GLOMERULAR FILTRATION RATE/1.73 SQ M.PREDICTE D [VOLUME RATE/AREA] IN SERUM, PLASMA OR BLOOD BY CREATININE -BASED FORMULA (CKD-EPI 2020) 68 mL/min 60 11/04 Specimen Type: SERUM No comment entered. Ordering Provider: GEORGIA LUEVANO Report Released Date/Time: Oct 01, 2023 12:05 PM Reporting Lab: [facility] [address] [facility] [address] Performing Lab: [facility] [address] [facility] [address] [place] LIPID PANEL FASTING CHOLESTERO L [MASS/VOLU ME] IN SERUM OR PLASMA 131 mg/dL 11/04 Specimen Type: SERUM No comment entered. Ordering Provider: GEORGIA LUEVANO Report Released Date/Time: Oct 01, 2023 12:05 PM Reporting Lab: [facility] [address] [facility] [address] Performing Lab: [facility]ITALRUN[facility]ITALN [address] [address] [place] LIPID PANEL FASTING TRIGLYCERI DE [MASS/VOLU ME] IN SERUM OR PLASMA 207 mg/dL 0 - 150 11/04 H Specimen Type: SERUM No comment entered. Ordering Provider: GEORGIA LUEVANO Report Released Date/Time: Oct 01, 2023 12:05 PM Reporting Lab: [facility] [address] [address] Performing Lab: [facility]ITALRUN[facility]ITALN [address] [address] [place] LIPID PANEL FASTING CHOLESTERO L IN LDL [MASS/VOLU ME] IN SERUM OR PLASMA BY CALCULATIO N 58 mg/dL 0 - 129 11/04 Specimen Type: SERUM No comment entered. Ordering Provider: GEORGIA LUEVANO Report Released Date/Time: Oct 01, 2023 12:05 PM Reporting Lab: [facility] [address] [address] Performing Lab: [facility]ITALRUN[facility] HOS[facility]ITALN [address] [address] [place] LIPID PANEL FASTING CHOLESTERO L.TOTAL/CH OLESTEROL IN HDL [MASS RATIO] IN SERUM OR PLASMA 4.1 11/04 Specimen Type: SERUM No comment entered. Ordering Provider: GEORGIA LUEVANO Report Released Date/Time: Oct 01, 2023 12:05 PM Reporting Lab: [facility] [address] [facility] [address] Performing Lab: [facility] [address] [address] [place] LIPID PANEL FASTING CHOLESTERO L IN HDL [MASS/VOLU ME] IN SERUM OR PLASMA 32 mg/dL 40 - 60 11/04 L Specimen Type: SERUM No comment entered. Ordering Provider: GEORGIA LUEVANO Report Released Date/Time: Oct 01, 2023 12:05 PM Reporting Lab: [facility] [address] [address] Performing Lab: [address] [address] [place] LIVER FUNCTION PROTEIN [MASS/VOLU ME] IN SERUM OR PLASMA 7.3 g/dL 6.0 - 8.3 11/04 Specimen Type: SERUM No comment entered. Ordering Provider: GEORGIA LUEVANO Report Released Date/Time: Oct 01, 2023 12:05 PM Reporting Lab: [facility] [address] [address] Performing Lab: [address] [address] [place] LIVER FUNCTION ALBUMIN [MASS/VOLU ME] IN SERUM OR PLASMA 3.9 g/dL 3.5 - 5.0 11/04 Specimen Type: SERUM No comment entered. Ordering Provider: GEORGIA LUEVANO Report Released Date/Time: Oct 01, 2023 12:05 PM Reporting Lab: [address] [address] Performing Lab: [address] [address] [place] ALKALINE PHOSPHATAS E [ENZYMATIC ACTIVITY/V OLUME] IN SERUM OR PLASMA 87 U/L 40 - 150 11/04 Specimen Type: SERUM No comment entered. Ordering Provider: GEORGIA LUEVANO Report Released Date/Time: Oct 01, 2023 12:05 PM Reporting Lab: [facility] [address] [address] Performing Lab: [address] [address] [place] LIVER FUNCTION ASPARTATE AMINOTRANS FERASE [ENZYMATIC ACTIVITY/V OLUME] IN SERUM OR PLASMA 40 U/L 5 - 34 11/04 H Specimen Type: SERUM No comment entered. Ordering Provider: GEORGIA LUEVANO Report Released Date/Time: Oct 01, 2023 12:05 PM Reporting Lab: [facility] [address] [address] Performing Lab: [address] [address] [place] LIVER FUNCTION ALANINE AMINOTRANS FERASE [ENZYMATIC ACTIVITY/V OLUME] IN SERUM OR PLASMA 31 U/L 11/04 Specimen Type: SERUM No comment entered. Ordering Provider: GEORGIA LUEVANO Report Released Date/Time: Oct 01, 2023 12:05 PM Reporting Lab: [address] [address] Performing Lab: [address] [address] [place] LIVER FUNCTION BILIRUBIN. TOTAL [MASS/VOLU ME] IN SERUM OR PLASMA 0.5 mg/dL 0.2 - 1.2 11/04 Specimen Type: SERUM No comment entered. Ordering Provider: GEORGIA LUEVANO Report Released Date/Time: Oct 01, 2023 12:05 PM Reporting Lab: [address] [address] Performing Lab: [address] [address] [place] CBC AND DIFF (AUTO) LEUKOCYTES [#/VOLUME] IN BLOOD BY AUTOMATED COUNT 5.07 10*3/uL 4.50 - 11.00 11/04 Specimen Type: BLOOD No comment entered. Ordering Provider: GEORGIA LUEVANO Report Released Date/Time: Oct 01, 2023 12:05 PM Reporting Lab: [facility] [address] [facility] [address] Performing Lab: [facility]ITAL[facility]N [facility] [address] [address] [place] CBC AND DIFF (AUTO) ERYTHROCYT ES [#/VOLUME] IN BLOOD BY AUTOMATED COUNT 4.11 10*6/uL 4.23 - 5.66 11/04 L Specimen Type: BLOOD No comment entered. Ordering Provider: GEORGIA LUEVANO Report Released Date/Time: Oct 01, 2023 12:05 PM Reporting Lab: [facility]RL [facility] [address] [address] Performing Lab: [facility]ITALRUNIV[facility] HOSPITALN [facility] SYSTEMUSE[address] [address] [place] CBC AND DIFF (AUTO) HEMOGLOBIN [MASS/VOLU ME] IN BLOOD 12.6 g/dL 12.8 - 17 11/04 L Specimen Type: BLOOD No comment entered. Ordering Provider: GEORGIA LUEVANO Report Released Date/Time: Oct 01, 2023 12:05 PM Reporting Lab: [facility] [address] [address] Performing Lab: [facility]ITALRL [facility]N [facility]USETS [address] [address] [place] CBC AND DIFF (AUTO) HEMATOCRIT [VOLUME FRACTION] OF BLOOD BY AUTOMATED COUNT 38.3 39.2 - 50.4 11/04 L Specimen Type: BLOOD No comment entered. Ordering Provider: GEORGIA LUEVANO Report Released Date/Time: Oct 01, 2023 12:05 PM Reporting Lab: [facility]USETS [address] [address] Performing Lab: [facility]OSPITALRFAYETTE MEDICAL CENTERTRN [facility] SYSTEMUSE[address] [address] [place] CBC AND DIFF (AUTO) MCV [ENTITIC VOLUME] BY AUTOMATED COUNT 93.2 fL 82 - 99 11/04 Specimen Type: BLOOD No comment entered. Ordering Provider: GEORGIA LUEVANO Report Released Date/Time: Oct 01, 2023 12:05 PM Reporting Lab: [facility]ITALRL WSTRN [facility] SYSTEMUSETS [facility] [address] [facility] [address] Performing Lab: [facility]ITALRL TRN [facility] SYSTEMUSETS [facility] [address] [facility] [address] [place] CBC AND DIFF (AUTO) MCHC [MASS/VOLU ME] BY AUTOMATED COUNT 32.9 g/dL 30.8 - 35.1 11/04 Specimen Type: BLOOD No comment entered. Ordering Provider: GEORGIA LUEVANO Report Released Date/Time: Oct 01, 2023 12:05 PM Reporting Lab: [facility] [address] [facility] [address] Performing Lab: [facility] HOSPITALRFAYETTE MEDICAL CENTERTRN [facility] SYSTEMUSE[address] [address] [place] CBC AND DIFF (AUTO) PLATELETS [#/VOLUME] IN BLOOD BY AUTOMATED COUNT 220 10*3/uL 140 - 360 11/04 Specimen Type: BLOOD No comment entered. Ordering Provider: GEORGIA LUEVANO Report Released Date/Time: Oct 01, 2023 12:05 PM Reporting Lab: [facility]PITALRFAYETTE MEDICAL CENTERTRN [facility] [address] [facility] [address] Performing Lab: [facility]OSPITALRL TRN [facility] SYSTEMUSE[address] [address] [place] CBC AND DIFF (AUTO) ERYTHROCYT E DISTRIBUTI ON WIDTH [RATIO] BY AUTOMATED COUNT 14.1 12.0 - 16.0 11/04 Specimen Type: BLOOD No comment entered. Ordering Provider: GEORGIA LUEVANO Report Released Date/Time: Oct 01, 2023 12:05 PM Reporting Lab: [facility]ITALRL WSTRN [facility] SYSTEMUSETS [address] [address] Performing Lab: [facility]ITALRL TRN [facility] SYSTEMUSE[address] [address] [place] CBC AND DIFF (AUTO) MONOCYTES [#/VOLUME] IN BLOOD BY AUTOMATED COUNT 0.49 10*3/uL 0.30 - 1.10 11/04 Specimen Type: BLOOD No comment entered. Ordering Provider: GEORGIA LUEVANO Report Released Date/Time: Oct 01, 2023 12:05 PM Reporting Lab: [place] [facility] [place] [place] [facility] [address] [facility] [address] Performing Lab: [facility] [place] [facility] [address] [facility] [address] [place] CBC AND DIFF (AUTO) MCH [ENTITIC MASS] BY AUTOMATED COUNT 30.7 pg 26.2 - 32.6 11/04 Specimen Type: BLOOD No comment entered. Ordering Provider: GEORGIA LUEVANO Report Released Date/Time: Oct 01, 2023 12:05 PM Reporting Lab: [facility] [place] [facility] [address] [facility] [address] Performing Lab: [facility] [place] [address] [address] [place] CBC AND DIFF (AUTO) NEUTROPHIL S/100 LEUKOCYTES IN BLOOD BY AUTOMATED COUNT 48.8 43.7 - 75.8 11/04 Specimen Type: BLOOD No comment entered. Ordering Provider: GEORGIA LUEVANO Report Released Date/Time: Oct 01, 2023 12:05 PM Reporting Lab: [facility] [place] [address] [address] Performing Lab: [facility] [place] [address] [address] [place] CBC AND DIFF (AUTO) LYMPHOCYTE S/100 LEUKOCYTES IN BLOOD BY AUTOMATED COUNT 37.5 14.0 - 42.3 11/04 Specimen Type: BLOOD No comment entered. Ordering Provider: GEORGIA LUEVANO Report Released Date/Time: Oct 01, 2023 12:05 PM Reporting Lab: [facility] [place] [address] [address] Performing Lab: [facility] [place] [address] [address] [place] CBC AND DIFF (AUTO) MONOCYTES/ 100 LEUKOCYTES IN BLOOD BY AUTOMATED COUNT 9.7 5.1 - 13.7 11/04 Specimen Type: BLOOD No comment entered. Ordering Provider: GEORGIA LUEVANO Report Released Date/Time: Oct 01, 2023 12:05 PM Reporting Lab: [facility] [address] [facility] [address] Performing Lab: [place] [facility] SYSTEMUSETS [address] [address] [place] CBC AND DIFF (AUTO) EOSINOPHIL S/100 LEUKOCYTES IN BLOOD BY AUTOMATED COUNT 3.2 0.4 - 6.8 11/04 Specimen Type: BLOOD No comment entered. Ordering Provider: GEORGIA LUEVANO Report Released Date/Time: Oct 01, 2023 12:05 PM Reporting Lab: [place] [facility] SYSTEMUSETS [address] [address] Performing Lab: [place] CNTRFAYETTE MEDICAL CENTERTRN [facility] SYSTEMUSE[address] [address] [place] CBC AND DIFF (AUTO) BASOPHILS/ 100 LEUKOCYTES IN BLOOD BY AUTOMATED COUNT 0.6 0.1 - 2.0 11/04 Specimen Type: BLOOD No comment entered. Ordering Provider: GEORGIA LUEVANO Report Released Date/Time: Oct 01, 2023 12:05 PM Reporting Lab: [facility]RL [facility] SYSTEMUSETS [address] [address] Performing Lab: [place] [facility] [address] [address] [place] CBC AND DIFF (AUTO) NEUTROPHIL S [#/VOLUME] IN BLOOD BY AUTOMATED COUNT 2.48 10*3/uL 2.20 - 7.60 11/04 Specimen Type: BLOOD No comment entered. Ordering Provider: GEORGIA LUEVANO Report Released Date/Time: Oct 01, 2023 12:05 PM Reporting Lab: [place] [facility] [address] [address] Performing Lab: [facility] [address] [address] [place] CBC AND DIFF (AUTO) LYMPHOCYTE S [#/VOLUME] IN BLOOD BY AUTOMATED COUNT 1.90 10*3/uL 1.00 - 3.20 11/04 Specimen Type: BLOOD No comment entered. Ordering Provider: GE[place] LUEVANO Report Released Date/Time: Oct 01, 2023 12:05 PM Reporting Lab: [facility]TR[facility]USE[address] [address] Performing Lab: [facility]TRN [facility]USE[address] [address] [address] [place] CBC AND DIFF (AUTO) EOSINOPHIL S [#/VOLUME] IN BLOOD BY AUTOMATED COUNT 0.16 10*3/uL 0.03 - 0.44 11/04 Specimen Type: BLOOD No comment entered. Ordering Provider: GEORGIA LUEVANO Report Released Date/Time: Oct 01, 2023 12:05 PM Reporting Lab: [facility] [address] [address] Performing Lab: [facility] [address] [address] [place] CBC AND DIFF (AUTO) BASOPHILS [#/VOLUME] IN BLOOD BY AUTOMATED COUNT 0.03 10*3/uL 0.01 - 0.13 11/04 Specimen Type: BLOOD No comment entered. Ordering Provider: GEORGIA LUEVANO Report Released Date/Time: Oct 01, 2023 12:05 PM Reporting Lab: [facility]TRN [address] [address] Performing Lab: [facility]ITALR[facility]TRN [facility]USE[address] [address] [place] CBC AND DIFF (AUTO) IMMATURE GRANULOCYT ES/100 LEUKOCYTES IN BLOOD BY AUTOMATED COUNT 0.2 0.0 - 0.7 11/04 Specimen Type: BLOOD No comment entered. Ordering Provider: GEORGIA LUEVANO Report Released Date/Time: Oct 01, 2023 12:05 PM Reporting Lab: [facility]TRN [facility] SYSTEMUSETS [address] [address] Performing Lab: [facility]ITALR[facility]TRN [facility]USE[address] [address] [place] CBC AND DIFF (AUTO) IMMATURE GRANULOCYT ES [#/VOLUME] IN BLOOD 0.01 10*3/uL 0.00 - 0.06 11/04 Specimen Type: BLOOD No comment entered. Ordering Provider: GEORGIA LUEVANO Report Released Date/Time: Oct 01, 2023 12:05 PM Reporting [facility]: [facility] [address] [address] Performing Lab: [address] [address] [place] HEMOGLOB IN A1C PANEL HEMOGLOBIN [...] Oct 01, 2023 12:05 PM Reporting Lab: [facility] [address] [address] Performing Lab: [address] [address] [place] TSH THYROTROPI N [UNITS/VOL UME] IN SERUM OR PLASMA 1.63 u[IU]/mL 0.35 - 5.00 11/04 Specimen Type: SERUM No comment entered. Ordering Provider: GEORGIA LUEVANO Report Released Date/Time: Oct 01, 2023 12:05 PM Reporting Lab: [facility] [address] [address] Performing Lab: [facility] [address] [address] [place] Vital Signs Combined list of inpatient and outpatient Vital Signs from Department of Defense and Veterans Affairs, ranging from 12 months to all on record, depending upon the facility. Vital Sign Value Date Comments Source SYSTOLIC BLOOD PRESSURE 163 05/05/2024 10:00:43 [place] DIASTOLIC BLOOD PRESSURE 88 05/05/2024 10:00:43 [place] PULSE OXIMETRY 96 05/05/2024 10:00:43 Teresa FONSECA WEIGHT 200 05/05/2024 10:00:43 [facility] GUAN BMI 30 kg/m2 05/05/2024 10:00:43 [facility] [facility] PULSE 71 05/05/2024 10:00:43 [facility] GU[facility] SYSTOLIC BLOOD PRESSURE 142 02/01/2024 14:40:00 [place] DIASTOLIC BLOOD PRESSURE 92 02/01/2024 14:40:00 [place] PULSE 68 02/01/2024 14:40:00 ELIDA GUAN Encounters Combined list of: 1) Encounters from Department of Veterans Affairs facilities going backup to the last 18 months, not all VA inpatient encounters are included; 2) Encounters from the Department of [facility] facilities going backup to 280 months. Location Location Details Encounter Type Encounter Number Reason For Visit Attending Provider ADM Date DC Date Status Disposition Source [facility] Out[facility] Encounter [id number] 09/21 [facility]counter [id number] 09/22 [facility] Outpatient Encounter [id number] 09/30 [facility] O/P NEW MOD 45 MIN [id number] Diagnos is: ICD-10- CM I10 Essenti al (primar y) hyperte nsion STELEA,CAR MEN F 09/30 [place] [facility] Out[facility] Encounter [id number] 09/30 [facility]counter [id number] 09/30 [facility]counter [id number] 09/30 [facility] Encounter [id number] 10/07 [facility] UNLISTED SPEC DERM SVC/PX [id number] Diagnos is: ICD-10- CM Z13.89 Encount er for screeni ng for other disorde r Tawanna TOMAS 10/14 [facility] [place] [facility] Outpatient Encounter [id number] 10/14 [facility] Outpatient Encounter [id number] Diagnos is: ICD-10- CM L82.1 Other seborrh eic keratos is LEANNE BRADEN 10/17 [facility] Out[facility] Encounter [id number] 10/17 [facility] Out[facility]counter [id number] 10/18 [facility] Encounter [id number] 10/19 [facility] O/P EST LOW 20 MIN [id number] Diagnos is: ICD-10- CM I10 Essenti al (primar y) hyperte nsion STELEA,CAR MEN F 11/04 [place] [facility] Out[facility] Encounter [id number] 11/15 [facility] Encounter [id number] 11/24 [facility] [place] OFFICE O/P EST MOD 30 MIN [id number] Diagnos is: ICD-10- CM I10 Essenti al (primar y) hyperte camila LUEVANOCAR LEXY F 01/02 [place] OFF/OP EST NOVEMBER X REQ PHY/QHP [id number] Diagnos is: ICD-10- CM I10 Essenti al (primar y) hyperte WILL Tran 01/31 [place] [facility] Outpatient Encounter [id number] [facility] [place] OFF[place] O/P EST MOD 30 MIN [id number] Diagnos is: ICD-10- CM I10 Essenti al (primar y) hyperte ROLAND Kahn F 05/05 [place] [facility] Out[facility] Encounter [id number] 07/21 [facility] [id number] 07/25 [facility]counter [id number] 08/10 [facility] Outpatient Encounter [id number] [facility] Social History Combined list of available smoking, tobacco, and other social history from Department of Defense and Veterans Affairs facilities. Social History Type Response Date Comment Sourc e Tobacco smoking status [facility] VA-TOBACCO NEVER USED 10[facility]01[facility]2023 [facility] History of tobacco use VA-TOBACCO FORMER USER 07/12/2018 [facility] History of tobacco use LIFETIME NON-TOBACCO USER 07/13/2017 [facility] Advance Directives List of completed, amended, or rescinded Advance Directives on record at Department of Veterans Affairs facilities. An actual copy of the Directive is not included. Date Advance Directive Provider Source 10/15/2023 [facility] DIRECT[facility]
--- OUTSIDE RECORDS SUMMARY | 2025-02-05 08:52 | XMS_ITS ---
Author Name [facility] Organization Unknown Encounters Encounter Type Encounter Reason Primary Diagnosis Location Date Ambulatory I10 E78.2 I12.9 G89.29 M54.41 M54.42 M25.561 HYPERTENSIVE CHRONIC KIDNEY DISEASE W STG 1-4/UNSP CHR KDNY [facility]) 10/28/2022 Ambulatory OTHER CHRONIC PAIN LUMBAGO WITH SCIATICA RIGHT SI OTHER INTERVERTEBRAL DISC DEGENERATION, LUMBAR REGION [facility]) 08/13/2022 Care Team Organization Name Specialty Phone Email Start Date End Da te [facility]) PHYSICIAN NO Primary Care 11/01/2022 03/13/2024 [facility]) NO PHYSICIAN Primary Care 10/28/2022 10/28/2022 [facility]) MIKE ELIZABETH Primary Care 08/13/2022 03/13/20 [facility]) CLARA MCKEON Primary Care 08/13/2022 08/13/19
[2025-02-05 10:29] LABS: MANUAL DIFF FLAG NO
[2025-02-05 10:44] LABS: Hematocrit 39.4 % (42.0-52.0); Hemoglobin 13.0 g/dl (14.0-18.0); Imm Gran Abs Auto 0.01 X10*3/uL (0.00-0.03); Imm Gran Pct Auto 0.2 % (0.0-0.4); Lymphocytes Absolute Auto 2.6 X10*3/uL (1.2-4.9); Mean Corpuscular HGB Conc 33.0 g/dl (31.0-36.0); Mean Corpuscular Hemoglobin 31.2 pg (27.0-33.0); Mean Corpuscular Volume 94.5 fL (80.0-98.0); NRBC Abs Auto 0.000 X10*3/uL (0.0-0.012); NRBC Pct Auto 0.0 /100WBC (0.0-0.2); Platelet Count 237 X10*3/uL (160-400); Red Blood Count 4.17 X10*6/uL (4.60-5.80); White Blood Count 5.7 X10*3/uL (4.8-10.8)
[2025-02-05 11:18] LABS: Alanine Aminotransferase 39 U/L (0-40); Anion Gap 13 (12-20); Aspartate Amino Transferase 32 U/L (5-37); Blood Urea Nitrogen 14 mg/dL (9-16); Calcium 9.9 mg/dL (8.4-10.2); Carbon Dioxide 25 mmol/L (22-29); Chloride 111 mmol/L (96-108); Cholesterol 110 mg/dL (<200); Estimated Glomerular Filt Rate > 60; HDL Cholesterol 33 mg/dL (>40); Iron 58 mcg/dL (45-160); Percent Iron Saturation 24 % (15-50); Potassium 4.3 mmol/L (3.3-5.1); Sodium 145 mmol/L (135-145); Total Iron Binding Capacity 241 mcg/dL (228-428); Triglycerides 112 mg/dL (<150); Unsaturated Iron Binding 183 ug/dL
[2025-02-05 11:33] LABS: Folate 9.9 ng/mL (> or = 4.0); Vitamin B12 797 pg/mL (200-900)
== END 2025-02-05 08:45 | disposition home or self-care (01) ==
LOC: HO.HMGCLDS 08:44
PROVIDERS: PCP Internal Medicine; Visit Provider Internal Medicine
DX: I10 Essential (primary) hypertension (principal); R79.89 Other specified abnormal findings of blood chemistry; E78.2 Mixed hyperlipidemia; D64.9 Anemia, unspecified
CPT/HCPCS: 36415; 80048; 80061; 82306; 82607; 82746; 83540; 84450; 84460; 85025

== ENCOUNTER 2025-02-06 08:06 | Outpatient (AMB) | payer MEDICARE, SELFPAY ==
--- OUTSIDE RECORDS SUMMARY | 2025-01-16 07:28 | XMS_ITS | Continuity of Care Document ---
Author Name [facility] Organization [facility] Care Team Providers Care Documentation Clerk Name Role Phone [facility] Unavailable Unavailable Problems Combined list of problems from Department of Defense and Veterans Affairs facilities. It does not include entries that were removed or entered in error. Problem Status Onset Date Problem Type Date of Resolution Comments Source Benign essential hypertension Active Condition [facility] Depression ([facility] 49403241) Active Condition [place] HTN - Hypertension ([facility] [id number]) [facility] Active Condition [facility] Hyperlipidemia ([facility] [id number]) Active Condition [place] Keratosis Active Condition [place] Obesity Active Condition [facility] Under care of multiple providers Active Condition Oct 03 Entered By: DANILO LUEVANO Comment: [place] PCP: Ketty bartholomew 12/2023 P: [phone] Oct 04, 2023 Entered By: DANILO LUEVANO Comment: [facility] PCP: Ana Maria dee 01/2024 P: [phone] Oct 04, 2023 Entered By: DANILO LUEVANO Comment: Optometry: Bucky Alatorre P: [phone] [place] [facility] [place] [facility] Urinary frequency Active Condition [place] Diagnosis: ICD-10-CM I10 Essential (primary) hypertension Active Diagnosis [place] Diagnosis: ICD-10-CM L82.1 Other seborrheic keratosis Active Diagnosis [facility] Diagnosis: ICD-10-CM Z13.89 Encounter for screening for other disorder Active Diagnosis [place] [facility] Medications Combined list of outpatient medications [...] ACTIVE REGIS GARY K 2017 [facility] AMLODIPINE BESYLATE 5MG TAB TAKE ONE TABLET BY MOUTH ONCE DAILY ORAL ACTIVE [place] [facility] [address] [facility] IELD ASCORBIC ACID 500MG TAB TAKE ONE TABLET BY MOUTH ONCE DAILY ORAL ACTIVE [place] [facility] [address] [facility] IELD ATORVASTATI N CA 40MG TAB TAKE ONE-HALF TABLET BY MOUTH ONCE DAILY ORAL ACTIVE [place] [facility] [address] [facility] IELD CYANOCOBALA MIN TAB TAKE BY MOUTH ORAL ACTIVE [place] [facility] [address] [facility] IELD HYDROCHLORO THIAZIDE 25MG TAB TAKE ONE TABLET BY MOUTH EVERY MORNING ORAL ACTIVE GARY,UDA Y K 2017 [facility] HYDROCHLORO THIAZIDE 25MG TAB TAKE ONE TABLET BY MOUTH ONCE DAILY ORAL ACTIVE [place] [facility] [address] [facility] IELD MULTIVITAMI NS CAP/TAB TAKE ONE TABLET BY MOUTH ONCE DAILY ORAL ACTIVE GARY,UDA Y K 2017 [facility] SERTRALINE HCL 100MG TAB TAKE ONE-HALF TABLET BY MOUTH ONCE DAILY ORAL ACTIVE [place] [facility] [address] [facility] IELD TRAZODONE HCL 100MG TAB TAKE ONE-HALF TABLET BY MOUTH ONCE DAILY ORAL ACTIVE [place] [facility] [address] [facility] IELD VITAMIN D3 (CHOLECALCI FEROL) TAB TAKE BY MOUTH ONCE DAILY ORAL ACTIVE [place] [facility] [address] [facility] IELD VITAMIN E CAP,ORAL TAKE BY MOUTH ORAL ACTIVE [place] [facility] [address] [facility] IELD Immunizations Combined list of available immunizations from the Department of Defense and Veterans Affairs facilities. 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 Icebox Man Status Comments Source INFLUENZA, UNSPECIFIED FORMULATION 2023 88 complet ed HISTORICA L INFORMATI ON - SOURCE UNSPECIFI ED, [place] [facility] [place] [facility] [facility] TDAP 2023 MATTIE VIVAS RIGHT DELTO ID [id number] 115 complet ed [facility] IELD INFLUENZA, UNSPECIFIED FORMULATION 2022 88 complet ed HISTORICA L INFORMATI ON - FROM PATIENT'S RECALL, [facility] [place] [facility] INFLUENZA, SEASONAL, INJECTABLE 2017 141 complet ed [place] [facility] INFLUENZA, SEASONAL, INJECTABLE 2016 141 complet ed Site: Left Deltoid [facility] Results Combined list of [...] Oct 02, 2024 01:07 PM Reporting Lab: [address] [address] Performing Lab: [address] [address] [place] ([facility]) HEPATITI S C ANTIBODY (HCV)-AR C HEPATITIS C VIRUS AB [PRESENCE] IN SERUM NON-REAC TIVE 11/04 Specimen Type: SERUM Comment: Hep C Ab: No HCV antibody detected. If recent infection is suspected or other evidence suggests HCV infection, consider HCV nucleic acid testing Ordering Provider: GEORGIA LUEVANO Report Released Date/Time: Oct 01, 2023 12:05 PM Reporting Lab: [facility] [address] [facility] [address] Performing Lab: [address] [address] [place] HIV 1&2 Ag/Ab SCREEN HIV 1+2 AB+HIV1 P24 AG [PRESENCE] IN SERUM OR PLASMA BY IMMUNOASSA Y NON-REAC TIVE 11/04 Specimen Type: SERUM No comment entered. Ordering Provider: GEORGIA LUEVANO Report Released Date/Time: Oct 01, 2023 12:05 PM Reporting Lab: [address] [address] Performing Lab: [facility] [address] [address] [place] BASIC METABOLI C PANEL (fasting ) UREA NITROGEN [MASS/VOLU ME] IN SERUM OR PLASMA 17 mg/dL 7 - 25 11/04 Specimen Type: SERUM No comment entered. Ordering Provider: GEORGIA LUEVANO Report Released Date/Time: Oct 01, 2023 12:05 PM Reporting Lab: [facility] [address] [address] Performing Lab: [address] [address] [place] BASIC METABOLI C PANEL (fasting ) GLUCOSE [MASS/VOLU ME] IN SERUM OR PLASMA 106 mg/dL 65 - 100 11/04 H Specimen Type: SERUM No comment entered. Ordering Provider: GEORGIA LUEVANO Report Released Date/Time: Oct 01, 2023 12:05 PM Reporting Lab: [facility] [address] [address] Performing Lab: [facility] [address] [address] [place] BASIC METABOLI C PANEL (fasting ) SODIUM [MOLES/VOL UME] IN SERUM OR PLASMA 143 mmol/L 135 - 145 11/04 Specimen Type: SERUM No comment entered. Ordering Provider: GEORGIA LUEVANO Report Released Date/Time: Oct 01, 2023 12:05 PM Reporting Lab: [facility] [address] [address] Performing Lab: [facility] [address] [address] [place] BASIC METABOLI C PANEL (fasting ) POTASSIUM [MOLES/VOL UME] IN SERUM OR PLASMA 3.9 mmol/L 3.5 - 5.0 11/04 Specimen Type: SERUM No comment entered. Ordering Provider: GEORGIA LUEVANO Report Released Date/Time: Oct 01, 2023 12:05 PM Reporting Lab: [facility] [address] [facility] [address] Performing Lab: [facility] [address] [facility] [address] [place] BASIC METABOLI C PANEL (fasting ) CHLORIDE [MOLES/VOL UME] IN SERUM OR PLASMA 107 mmol/L 100 - 110 11/04 Specimen Type: SERUM No comment entered. Ordering Provider: GEORGIA LUEVANO Report Released Date/Time: Oct 01, 2023 12:05 PM Reporting Lab: [facility] [address] [address] Performing Lab: [facility] [address] [address] [place] BASIC METABOLI C PANEL (fasting ) CARBON DIOXIDE, TOTAL [MOLES/VOL UME] IN SERUM OR PLASMA 26 meq/L 20 - 30 11/04 Specimen Type: SERUM No comment entered. Ordering Provider: GEORGIA LUEVANO Report Released Date/Time: Oct 01, 2023 12:05 PM Reporting Lab: [facility] [address] [address] Performing Lab: [facility] [address] [address] [place] BASIC METABOLI C PANEL (fasting ) CREATININE [MASS/VOLU ME] IN SERUM OR PLASMA 1.15 mg/dL 0.50 - 1.40 11/04 Specimen Type: SERUM No comment entered. Ordering Provider: GEORGIA LUEVANO Report Released Date/Time: Oct 01, 2023 12:05 PM Reporting Lab: [facility] [address] Performing Lab: [facility] [address] [place] BASIC METABOLI C PANEL (fasting ) GLOMERULAR FILTRATION RATE/1.73 SQ M.PREDICTE D [VOLUME RATE/AREA] IN SERUM, PLASMA OR BLOOD BY CREATININE -BASED FORMULA (CKD-EPI 2020) 68 mL/min 60 11/04 Specimen Type: SERUM No comment entered. Ordering Provider: GEORGIA LUEVANO Report Released Date/Time: Oct 01, 2023 12:05 PM Reporting Lab: [facility] [address] [address] Performing Lab: [place] [facility] [facility] [address] [address] [place] CBC AND DIFF (AUTO) LEUKOCYTES [#/VOLUME] IN BLOOD BY AUTOMATED COUNT 5.07 10*3/uL 4.50 - 11.00 11/04 Specimen Type: BLOOD No comment entered. Ordering Provider: GEORGIA LUEVANO Report Released Date/Time: Oct 01, 2023 12:05 PM Reporting Lab: [facility] [address] Performing Lab: [facility] [address] [place] CBC AND DIFF (AUTO) ERYTHROCYT ES [#/VOLUME] IN BLOOD BY AUTOMATED COUNT 4.11 10*6/uL 4.23 - 5.66 11/04 L Specimen Type: BLOOD No comment entered. Ordering Provider: GEORGIA LUEVANO Report Released Date/Time: Oct 01, 2023 12:05 PM Reporting Lab: [facility] [address] [address] Performing Lab: [facility] TRN [facility] [address] [address] [place] CBC AND DIFF (AUTO) HEMOGLOBIN [MASS/VOLU ME] IN BLOOD 12.6 g/dL 12.8 - 17 11/04 L Specimen Type: BLOOD No comment entered. Ordering Provider: GEORGIA LUEVANO Report Released Date/Time: Oct 01, 2023 12:05 PM Reporting Lab: [facility] [address] [address] Performing Lab: [facility] [address] [address] [place] CBC AND DIFF (AUTO) HEMATOCRIT [VOLUME FRACTION] OF BLOOD BY AUTOMATED COUNT 38.3 39.2 - 50.4 11/04 L Specimen Type: BLOOD No comment entered. Ordering Provider: GEORGIA LUEVANO Report Released Date/Time: Oct 01, 2023 12:05 PM Reporting Lab: [facility] [address] [address] Performing Lab: [facility] [address] [address] [place] CBC AND DIFF (AUTO) MCV [ENTITIC VOLUME] BY AUTOMATED COUNT 93.2 fL 82 - 99 11/04 Specimen Type: BLOOD No comment entered. Ordering Provider: GEORGIA LUEVANO Report Released Date/Time: Oct 01, 2023 12:05 PM Reporting Lab: [facility] [address] [address] Performing Lab: [facility] [address] [address] [place] CBC AND DIFF (AUTO) MCHC [MASS/VOLU ME] BY AUTOMATED COUNT 32.9 g/dL 30.8 - 35.1 11/04 Specimen Type: BLOOD No comment entered. Ordering Provider: GEORGIA LUEVANO Report Released Date/Time: Oct 01, 2023 12:05 PM Reporting Lab: [facility] [address] [address] Performing Lab: [facility] [address] [address] [place] CBC AND DIFF (AUTO) PLATELETS [#/VOLUME] IN BLOOD BY AUTOMATED COUNT 220 10*3/uL 140 - 360 11/04 Specimen Type: BLOOD No comment entered. Ordering Provider: GEORGIA LUEVANO Report Released Date/Time: Oct 01, 2023 12:05 PM Reporting Lab: [facility] TRN [address] [address] Performing Lab: [facility]USE[address] [address] [place] CBC AND DIFF (AUTO) ERYTHROCYT E DISTRIBUTI ON WIDTH [RATIO] BY AUTOMATED COUNT 14.1 12.0 - 16.0 11/04 Specimen Type: BLOOD No comment entered. Ordering Provider: GEORGIA LUEVANO Report Released Date/Time: Oct 01, 2023 12:05 PM Reporting Lab: [place] [facility] [address] [address] Performing Lab: [place] [facility] [address] [address] [place] CBC AND DIFF (AUTO) MONOCYTES [#/VOLUME] IN BLOOD BY AUTOMATED COUNT 0.49 10*3/uL 0.30 - 1.10 11/04 Specimen Type: BLOOD No comment entered. Ordering Provider: GEORGIA LUEVANO Report Released Date/Time: Oct 01, 2023 12:05 PM Reporting Lab: [facility] [address] [address] Performing Lab: [facility] [address] [address] [place] CBC AND DIFF (AUTO) MCH [ENTITIC MASS] BY AUTOMATED COUNT 30.7 pg 26.2 - 32.6 11/04 Specimen Type: BLOOD No comment entered. Ordering Provider: GEORGIA LUEVANO Report Released Date/Time: Oct 01, 2023 12:05 PM Reporting Lab: [facility] [address] [address] Performing Lab: [facility] TRN [address] [address] [place] CBC AND DIFF (AUTO) NEUTROPHIL S/100 LEUKOCYTES IN BLOOD BY AUTOMATED COUNT 48.8 43.7 - 75.8 11/04 Specimen Type: BLOOD No comment entered. Ordering Provider: GEORGIA LUEVANO Report Released Date/Time: Oct 01, 2023 12:05 PM Reporting Lab: [place] [facility] [address] [address] Performing Lab: [facility] [address] [address] [place] CBC AND DIFF (AUTO) LYMPHOCYTE S/100 LEUKOCYTES IN BLOOD BY AUTOMATED COUNT 37.5 14.0 - 42.3 11/04 Specimen Type: BLOOD No comment entered. Ordering Provider: GEORGIA LUEVANO Report Released Date/Time: Oct 01, 2023 12:05 PM Reporting Lab: [place] [facility] [address] [address] Performing Lab: [place] [facility] [address] [address] [place] CBC AND DIFF (AUTO) MONOCYTES/ 100 LEUKOCYTES IN BLOOD BY AUTOMATED COUNT 9.7 5.1 - 13.7 11/04 Specimen Type: BLOOD No comment entered. Ordering Provider: GEORGIA LUEVANO Report Released Date/Time: Oct 01, 2023 12:05 PM Reporting Lab: [place] [facility] [address] [address] Performing Lab: [facility] [address] [address] [place] CBC AND DIFF (AUTO) EOSINOPHIL S/100 LEUKOCYTES IN BLOOD BY AUTOMATED COUNT 3.2 0.4 - 6.8 11/04 Specimen Type: BLOOD No comment entered. Ordering Provider: GEORGIA LUEVANO Report Released Date/Time: Oct 01, 2023 12:05 PM Reporting Lab: [place] [facility] [address] [address] Performing Lab: [place] [facility] [facility] [address] [address] [place] CBC AND DIFF (AUTO) BASOPHILS/ 100 LEUKOCYTES IN BLOOD BY AUTOMATED COUNT 0.6 0.1 - 2.0 11/04 Specimen Type: BLOOD No comment entered. Ordering Provider: GEORGIA LUEVANO Report Released Date/Time: Oct 01, 2023 12:05 PM Reporting Lab: [place] [facility] [address] [address] Performing Lab: [place] [facility] [address] [address] [place] CBC AND DIFF (AUTO) NEUTROPHIL S [#/VOLUME] IN BLOOD BY AUTOMATED COUNT 2.48 10*3/uL 2.20 - 7.60 11/04 Specimen Type: BLOOD No comment entered. Ordering Provider: GEORGIA LUEVANO Report Released Date/Time: Oct 01, 2023 12:05 PM Reporting Lab: [facility] [address] [address] Performing Lab: [facility] [address] [address] [place] CBC AND DIFF (AUTO) LYMPHOCYTE S [#/VOLUME] IN BLOOD BY AUTOMATED COUNT 1.90 10*3/uL 1.00 - 3.20 11/04 Specimen Type: BLOOD No comment entered. Ordering Provider: GEORGIA LUEVANO Report Released Date/Time: Oct 01, 2023 12:05 PM Reporting Lab: [facility] [address] [address] Performing Lab: [facility] [address] [address] [place] CBC AND DIFF (AUTO) EOSINOPHIL S [#/VOLUME] IN BLOOD BY AUTOMATED COUNT 0.16 10*3/uL 0.03 - 0.44 11/04 Specimen Type: BLOOD No comment entered. Ordering Provider: GEORGIA LUEVANO Report Released Date/Time: Oct 01, 2023 12:05 PM Reporting Lab: [facility] [address] [address] Performing Lab: [facility] [address] [place] CBC AND DIFF (AUTO) BASOPHILS [#/VOLUME] IN BLOOD BY AUTOMATED COUNT 0.03 10*3/uL 0.01 - 0.13 11/04 Specimen Type: BLOOD No comment entered. Ordering Provider: GEORGIA LUEVANO Report Released Date/Time: Oct 01, 2023 12:05 PM Reporting Lab: [facility] [address] [address] Performing Lab: [facility] [address] [place] CBC AND DIFF (AUTO) IMMATURE GRANULOCYT ES/100 LEUKOCYTES IN BLOOD BY AUTOMATED COUNT 0.2 0.0 - 0.7 11/04 Specimen Type: BLOOD No comment entered. Ordering Provider: GEORGIA LUEVANO Report Released Date/Time: Oct 01, 2023 12:05 PM Reporting Lab: [address] [address] Performing Lab: [address] [address] [place] CBC AND DIFF (AUTO) IMMATURE GRANULOCYT ES [#/VOLUME] IN BLOOD 0.01 10*3/uL 0.00 - 0.06 11/04 Specimen Type: BLOOD No comment entered. Ordering Provider: GEORGIA LUEVANO Report Released Date/Time: Oct 01, 2023 12:05 PM Reporting Lab: [address] [address] Performing Lab: [address] [address] [place] HEMOGLOB IN A1C PANEL HEMOGLOBIN A1C/HEMOGL [...] Oct 01, 2023 12:05 PM Reporting Lab: [address] [address] Performing Lab: [address] [address] [place] LIPID PANEL FASTING CHOLESTERO L [MASS/VOLU ME] IN SERUM OR PLASMA 131 mg/dL 11/04 Specimen Type: SERUM No comment entered. Ordering Provider: GEORGIA LUEVANO Report Released Date/Time: Oct 01, 2023 12:05 PM Reporting Lab: [facility] [address] [address] Performing Lab: [facility] [address] [address] [place] LIPID PANEL FASTING TRIGLYCERI DE [MASS/VOLU ME] IN SERUM OR PLASMA 207 mg/dL 0 - 150 11/04 H Specimen Type: SERUM No comment entered. Ordering Provider: GEORGIA LUEVANO Report Released Date/Time: Oct 01, 2023 12:05 PM Reporting Lab: [facility] [address] [address] Performing Lab: [facility] [address] [address] [place] LIPID PANEL FASTING CHOLESTERO L IN LDL [MASS/VOLU ME] IN SERUM OR PLASMA BY CALCULAPAULOO N 58 mg/dL 0 - 129 11/04 Specimen Type: SERUM No comment entered. Ordering Provider: GEORGIA LUEVANO Report Released Date/Time: Oct 01, 2023 12:05 PM Reporting Lab: [facility] [address] [address] Performing Lab: [facility] [address] [address] [place] LIPID PANEL FASTING CHOLESTERO L.TOTAL/CH OLESTEROL IN HDL [MASS RATIO] IN SERUM OR PLASMA 4.1 11/04 Specimen Type: SERUM No comment entered. Ordering Provider: GEORGIA LUEVANO Report Released Date/Time: Oct 01, 2023 12:05 PM Reporting Lab: [facility] [address] [address] Performing Lab: [facility] [address] [address] [place] LIPID PANEL FASTING CHOLESTERO L IN HDL [MASS/VOLU ME] IN SERUM OR PLASMA 32 mg/dL 40 - 60 11/04 L Specimen Type: SERUM No comment entered. Ordering Provider: GEORGIA LUEVANO Report Released Date/Time: Oct 01, 2023 12:05 PM Reporting Lab: [facility]N [facility] [address] [facility] [address] Performing Lab: [facility] [address] [address] [facility] LIVER FUNCTION PROTEIN [MASS/VOLU ME] IN SERUM OR PLASMA 7.3 g/dL 6.0 - 8.3 11/04 Specimen Type: SERUM No comment entered. Ordering Provider: GEORGIA LUEVANO Report Released Date/Time: Oct 01, 2023 12:05 PM Reporting Lab: [facility] [address] [address] Performing Lab: [facility] [address] [address] [place]IVER FUNCTION ALBUMIN [MASS/VOLU ME] IN SERUM OR PLASMA 3.9 g/dL 3.5 - 5.0 11/04 Specimen Type: SERUM No comment entered. Ordering Provider: GEORGIA LUEVANO Report Released Date/Time: Oct 01, 2023 12:05 PM Reporting Lab: [facility] [address] [address] Performing Lab: [facility] [address] [place] LIVER FUNCTION ALKALINE PHOSPHATAS E [ENZYMATIC ACTIVITY/V OLUME] IN SERUM OR PLASMA 87 U/L 40 - 150 11/04 Specimen Type: SERUM No comment entered. Ordering Provider: GEORGIA LUEVANO Report Released Date/Time: Oct 01, 2023 12:05 PM Reporting Lab: [facility] [address] Performing Lab: [facility] [address] [place] LIVER FUNCTION ASPARTATE AMINOTRANS FERASE [ENZYMATIC ACTIVITY/V OLUME] IN SERUM OR PLASMA 40 U/L 5 - 34 11/04 H Specimen Type: SERUM No comment entered. Ordering Provider: STELEA,[place]OR[place] EN F Report Released Date/Time: Oct 01, 2023 12:05 PM Reporting Lab: [facility] [address] [facility] [address] Performing Lab: [address] [address] [place] [facility] ALANINE AMINOTRANS FERASE [ENZYMATIC ACTIVITY/V OLUME] IN SERUM OR PLASMA 31 U/L 11/04 Specimen Type: SERUM No comment entered. Ordering Provider: GE[place] LUEVANO Report Released Date/Time: Oct 01, 2023 12:05 PM Reporting Lab: [address] [address] Performing Lab: [address] [address] [place] [facility] BILIRUBIN. TOTAL [MASS/VOLU ME] IN SERUM OR PLASMA 0.5 mg/dL 0.2 - 1.2 11/04 Specimen Type: SERUM No comment entered. Ordering Provider: GEORGIA LUEVANO Report Released Date/Time: Oct 01, 2023 12:05 PM Reporting Lab: [address] [address] Performing Lab: [address] [address] [place] TSH THYROTROPI N [UNITS/VOL UME] IN SERUM OR PLASMA 1.63 u[IU]/mL 0.35 - 5.00 11/04 Specimen Type: SERUM No comment entered. Ordering Provider: GEOR[place]IA LUEVANO Report Released Date/Time: Oct 01, 2023 12:05 PM Reporting Lab: [address] [address] Performing Lab: [address] [address] [place] VITAMIN D 25-OH (Therapy monitor) 25-HYDROXY [...] additional information , please refer to http://educ ation.[employer] .com/faq/FA Q199 (This link is being provided for information al/ educational purposes only.) This test was developed and its analytical performance characteris tics have been determined by [employer] [place], [place]. It has not been cleared or approved by the U.S. Food and Drug Administrat ion. This assay has been validated pursuant to the CLIA regulations and is used for clinical purposes. This test was developed and its analytical performance characteris tics have been determined by [employer] [facility] [place], [place]. It has not been cleared or approved by the U.S. Food and Drug Administrat ion. This assay has been validated pursuant to the CLIA regulations and is used for clinical purposes. Test Performed by [facility], [employer] [facility], [address] [place] [address] [place] Bach M.D., Ph.D., Director of Laboratorie s , CLIA [id number] TEST PERFORMED AT: , Ordering Provider: GEORGIA LUEVANO Report Released Date/Time: Oct 01, 2023 12:05 PM Reporting Lab: [facility] [address] [facility] [address] Performing Lab: [facility] [address] [address] [facility] VITAMIN D 25-OH (Therapy monitor) 25-HYDROXY [...] additional information , please refer to http://educ ation.[employer] .com/faq/FA Q199 (This link is being provided for information al/ educational purposes only.) This test was developed and its analytical performance characteris tics have been determined by [employer] [place], [place]. It has not been cleared or approved by the U.S. Food and Drug Administrat ion. This assay has been validated pursuant to the CLIA regulations and is used for clinical purposes. This test was developed and its analytical performance characteris tics have been determined by [facility] [place] It has not been cleared or approved by the U.S. Food and Drug Administrat ion. This assay has been validated pursuant to the CLIA regulations and is used for clinical purposes. Test Performed by [facility], [employer] [facility], [address] [place] [address] Yoan Bach M.D., Ph.D., Director of Laboratorie s , CLIA [id number] TEST PERFORMED AT: , Ordering Provider: GEORGIA LUEVANO Report Released Date/Time: Oct 01, 2023 12:05 PM Reporting Lab: [facility] [address] [facility] [address] Performing Lab: [facility] [address] [address] [facility] VITAMIN D 25-OH (Therapy monitor) CALCIFEROL [...] additional information , please refer to http://educ ation.[employer] .com/faq/FA Q199 (This link is being provided for information al/ educational purposes only.) This test was developed and its analytical performance characteris tics have been determined by [employer] [place], [place]. It has not been cleared or approved by the U.S. Food and Drug Administrat ion. This assay has been validated pursuant to the CLIA regulations and is used for clinical purposes. This test was developed and its analytical performance characteris tics have been determined by [employer] [place], [place]. It has not been cleared or approved by the U.S. Food and Drug Administrat ion. This assay has been validated pursuant to the CLIA regulations and is used for clinical purposes. Test Performed by [facility], [employer] [facility], [address] [place] [address] Yoan Bach M.D., Ph.D., Director of Laboratorie s , CLIA [id number] TEST PERFORMED AT: , Ordering Provider: GEORGIA LUEVANO Report Released Date/Time: Oct 01, 2023 12:05 PM Reporting Lab: [facility] [address] [facility] [address] Performing Lab: [facility] [address] [address] [facility] Vital Signs Combined list of inpatient and outpatient Vital Signs from Department of Defense and Veterans Affairs, ranging from 12 months to all on record, depending upon the facility. Vital Sign Value Date Comments Source SYSTOLIC BLOOD PRESSURE 163 05/05/2024 10:00:43 [place] DIASTOLIC BLOOD PRESSURE 88 05/05/2024 10:00:43 [place] PULSE OXIMETRY 96 05/05/2024 10:00:43 Teresa FONSECA WEIGHT 200 05/05/2024 10:00:43 [place] GUAN BMI 30 kg/m2 05/05/2024 10:00:43 [place] [facility] PULSE 71 05/05/2024 10:00:43 [place] GU[facility] SYSTOLIC BLOOD PRESSURE 142 02/01/2024 14:40:00 [place] DIASTOLIC BLOOD PRESSURE 92 02/01/2024 14:40:00 [place] PULSE 68 02/01/2024 14:40:00 ELIDA GUAN Encounters Combined list of: 1) Encounters from Department of Veterans Affairs facilities going backup to the last 18 months, not all VA inpatient encounters are included; 2) Encounters from the Department of [facility] facilities going backup to 280 months. Location Location Details Encounter Type Encounter Number Reason For Visit Attending Provider ADM Date DC Date Status Disposition Source [facility] Encounter [id number] 09/21 [facility] Outpatient [facility]counter [id number] 09/22 [facility] Out[facility] Encounter [id number] 09/30 [facility] OFFICE O/P NEW MOD 45 MIN [id number] Diagnos is: ICD-10- CM I10 Essenti al (primar y) hyperte nsion STELEA,CAR MEN F 09/30 [place] [facility] Out[facility] Encounter [id number] 09/30 [facility] [id number] 09/30 [facility]counter [id number] 09/30 [facility] Out[facility] Encounter [id number] 10/07 [facility] UNLISTED SPEC DERM SVC/PX [id number] Diagnos is: ICD-10- CM Z13.89 Encount er for screeni ng for other disorde r Tawanna TOMAS 10/14 [facility] [place] [facility] Outpatient Encounter [id number] 10/14 [facility] Outpatient Encounter [id number] Diagnos is: ICD-10- CM L82.1 Other seborrh eic keratos is LEANNE BRADEN 10/17 [facility] Out[facility] Encounter [id number] 10/17 [facility] Out[facility] Encounter [id number] 10/18 [facility] Out[facility] Encounter [id number] 10/19 [facility] OFFICE O/P EST LOW 20 MIN [id number] Diagnos is: ICD-10- CM I10 Essenti al (primar y) hyperte nsion STELEA,CAR MEN F 11/04 [place] [facility] Out[facility] Encounter [id number] 11/15 [facility] Encounter [id number] 11/24 [facility] [place] OFFICE O/P EST MOD 30 MIN [id number] Diagnos is: ICD-10- CM I10 Essenti al (primar y) hyperte camila LUEVANOCAR LEXY F 01/02 [place] OFF/OP EST NOVEMBER X REQ PHY/QHP [id number] Diagnos is: ICD-10- CM I10 Essenti al (primar y) hyperte WILL Tran 01/31 [place] [facility] Outpatient Encounter [id number] [facility] [place] OFFICE O/P EST MOD 30 MIN [id number] Diagnos is: ICD-10- CM I10 Essenti al (primar y) hyperte ROLAND Kahn F 05/05 [place] [facility] Out[facility] Encounter [id number] 07/21 [facility] En[facility] [id number] 07/25 [facility] Out[facility] Encounter [id number] 08/10 [facility] Outpatient Encounter [id number] [facility] Social History Combined list of available smoking, tobacco, and other social history from Department of Defense and Veterans Affairs facilities. Social History Type Response Date Comment Sourc e Tobacco smoking status [facility] VA-TOBACCO NEVER USED 10[facility]01[facility]2023 [facility] History of tobacco use VA-TOBACCO FORMER USER 07/12/2018 [facility] History of tobacco use LIFETIME NON-TOBACCO USER 07/13/2017 [facility] Advance Directives List of completed, amended, or rescinded Advance Directives on record at Department of Veterans Affairs facilities. An actual copy of the Directive is not included. Date Advance Directive Provider Source 10/15/2023 [facility]
[2025-02-06 08:14] VITALS: BP 130/72; PULSE 65; RESP 15; TEMP 36.8; O2SAT 98
--- NOTE | 2025-02-06 08:14 | A.OFFPC_ITS ---
Vital Signs 02/06/25 08:14 Height 5 ft 9 in Weight 203 lb BMI 30.0 BP 130/72 Blood Pressure Location Rt brachial Position Sitting Respiration 15 Pulse 65 Pulse Source Pulse Oximeter Temp 98.2 F Temp Source Oral Pulse Oximetry (%) 98 Oxygen Delivery Method Room Air Intake Visit Reasons: 5m follow up Intake Note: Pt is here today for his 5mo. f/u labs Allergies No Known Allergies Allergy (Verified 02/06/25 08:19) Medication List - Last Reconciled 02/06/25 by Ana Maria Ga MD amlodipine 5 mg PO DAILY ascorbic acid (vitamin C) 500 mg PO DAILY atorvastatin 20 mg PO DAILY bisacodyl 5 mg PO ONCE 1 day calcium fdu-fyy-O1-Zn-helicopter technician-la 250 mg-40 mg- 125 unit-3.75mg 1 tab PO DAILY cholecalciferol (vitamin D3) 25 mcg PO DAILY cwgzrotb-mnyity-wmriqxde acid 500 mg-800 mcg- 50 mg (Collagen 1500 Plus C) caps PO ferrous sulfate (Feosol) 325 mg PO DAILY omega 8-eqs-mpf-fish oil 1,000 (120-180) mg (Fish Oil) 1 cap PO DAILY polyethylene glycol 3350 (Miralax) 238 grams PO ONCE sertraline 50 mg PO DAILY Tobacco use date assessed: 02/06/25 Fall risk assessment: No Falls in past year Last assessed Fall Risk: 02/06/25 Dental Screening Dental Screen Date: 02/06/25 Did you have a dental visit in the last 12 months?: No Did you have a dental problem in the last 6 months where you did not have access to dental care?: No Was dental information given to patient?: Patient has dentist HPI 5m follow up HPI Details 74 year-old male with past medical histo ry significant for anemia, hypertension, hyperlipidemia, seasonal allergies, and anxiety depression, here today for follow-up. He is accompanied today by his . Has been feeling well, with no complaints at present time [facility] Medical History (Updated 02/06/25 @ 08:55 by Ana Maria Ga MD) Need for antibiotic prophylaxis for dental procedure Elevated vitamin B12 level Elevated fasting glucose Constipation Screening for colorectal cancer Anemia History of right inguinal hernia Anxiety and depression Hyperlipidemia Essential hypertension Surgical History Hx of colonoscopy Hx of inguinal herniorrhaphy History of appendectomy History of left knee replacement Family History Father Congenital heart disease Acute myocardial infarction Mother Systemic lupus erythematosus Osteoporosis Social History Housing: House Patient Tobacco Use Status: Former Tobacco user e-Cigarette/Vaping Use: Never Used service: Yes Current occupational status: retired Cognitive needs: No Hearing needs: No Vision needs: Yes Questionnaire PHQ-9 Over the last 2 weeks, how often have you been bothered by any of the following problems? 1. Little interest or pleasure in doing things: not at all 2. Feeling down, depressed, or hopeless: not at all 3. Trouble falling or staying asleep, or sleeping too much: not at all 4. Feeling tired or having little energy: not at all 5. Poor appetite or overeating: not at all 6. Feeling bad about yourself - or that you are a failure or have let yourself or your family down: not at all 7. Trouble concentrating on things, such as reading the newspaper or watching television: not at all 8. Moving or speaking so slowly that other people could have noticed. Or the opposite - being so fidgety or restless that you have been moving around a lot more than usual: not at all 9. Thoughts that you would be better off or of hurting yourself in some way: not at all Total score: 0 Depression Screening Interpretation: Negative Depression Screening Done: Yes 76049 - PHQ-9 Billing: Yes Source: Developed by Drs. Akira Dominguez, Cristaine Landin, Michael Velez and colleagues, with an educational bo from [employer]. Thrive Questionnaire Date Thrive assessed: 09/05/24 I am a: Patient What is your living situation today?: I have a steady place to live Within the past 12 months, did the food you bought not last and you didn't have the money to get more?: Never true Within the past 12 months, did you worry whether your food would run out before you got money to buy more?: Never true Do you have trouble paying for medicines?: No Do you have trouble getting transportation to medical appointments?: No Do you have trouble paying your heating and electricity bill?: No Do you have trouble taking care of your child, family member or friend?: No Do you have trouble with day-to-day activities such as bathing, preparing meals, shopping, managing finances, etc.?: No Are you currently unemployed and looking for a job?: No Are you interested in more education?: No Please select the resources that you would like help with: None Currently or been in a relationship where the following occur: I choose not to answer THRIVE Score: 0 AUDIT C Alcohol Use Questionnaire (AUDIT-C) 1. How often do you have a drink containing alcohol?: Never Total Score: 0 DEMI-7 AMB Questionnaire DEMI-7 Date DEMI - 7 assessed: 09/05/24 Source: Developed by Drs. Akira Dominguez, Cristiane Landin, Michael Velez and colleagues, with an educational bo from [employer]. Review of Systems Const Denies body aches, Denies fever(s), Denies headache(s) and Denies weakness Eyes Details: Goes to [facility] Denies change in vision ENT Denies dizziness, Denies headache(s), Denies nasal congestion, Denies nasal discharge, Reports disequilibrium and Denies sore throat Card Denies chest pain, Denies lightheadedness, Denies palpitations and Denies dyspnea Resp Denies chest congestion, Denies cough, Denies dyspnea and Denies wheezing GI Denies abdominal pain, Denies change in bowel habits and Denies heartburn Denies hematuria, Denies difficulty urinating, Denies dysuria, Denies urinary frequency and Denies urinary urgency Musc Reports no additional complaints Skin/Breast Reports as per HPI Neuro Denies dizziness, Denies headache(s), Reports disequilibrium and Denies weakness Psych Reports no additional complaints Endo Denies polydipsia, Denies polyuria and Denies palpitations Carson/Lymph Denies easy bruising Aller/Immun Denies seasonal rhinorrhea and Denies wheezing Physical exam (Primary Care) Vital Signs: Last Vital Signs Temp 98.2 F 02/06/25 08:14 Pulse 65 02/06/25 08:14 Resp 15 02/06/25 08:14 BP 130/72 02/06/25 08:14 Pulse Ox 98 02/06/25 08:14 Oxygen Delivery Method Room Air 02/06/25 08:14 BMI result Body Mass Index 30.0 Tobacco/Smoking Status: Tobacco use Status Tobacco use date assessed 02/06/25 02/06/25 08:20 Patient Tobacco Use Status Former Tobacco user 02/06/25 08:16 e-Cigarette/Vaping Use Never Used 02/06/25 08:16 PHQ-9: PHQ-9 Score PHQ-9: Total score 0 02/06/25 08:55 Depression Screening Interpretation: Negative Thrive Assessment: Date of Thrive Assessment Date Thrive assessed 09/05/24 02/06/25 08:16 Currently or been in a relationship where the following occur: I choose not to answer Const General: comfortable, no acute distress and alert Orientation/consciousness: patient oriented x3 HENMT Head: Yes normocephalic General nose exam: Normal external nose present and No nasal discharge present Face and sinus: Yes face symmetric Mouth: Normal oral and palatal mucosa present, oropharynx normal and moist mucous membranes Eyes General: appearance normal, both eyes and all related structures Conjunctivae: conjunctivae normal Sclerae: sclerae normal Pupils: Equal, round and reactive pupils present EOM: EOMs intact bilaterally Neck Neck: Yes full ROM, Yes no lymphadenopathy and Yes supple Chest Chest palpation & inspection: normal inspection of the chest Resp Effort & Inspection: normal respiratory effort and able to speak in complete sentences Auscultation: clear to auscultation bilaterally Cardio Rate: regular rate Rhythm: regular rhythm Heart sounds: S1 normal heart sound present and S2 normal heart sound present GI Palpation (GI): Soft to palpation, nontender and no masses Auscultation: normal bowel sounds Male General Exam: Yes normal external exam Back/Spine/Pelvis Back: No back tenderness Neuro General: patient oriented x3, gait normal, tone normal, moves all extremities, Normal light touch and pain sensation and no focal motor deficits Cranial nerves: Yes CN's II-XII intact bilaterally and Yes Equal, round and reactive pupils present Cognition (Neuro): normal cognition Extrem General: Yes full ROM, Yes no joint enlargement, Yes no clubbing, cyanosis or edema and Yes no calf tenderness Psych Appearance: grossly normal and well kempt Mental Status: mental status grossly normal Speech and movement: Normal speech and movement present Affect: normal affect Attitude: cooperative Thought process: Normal thought process present Thought content: Normal thought content present Results Reviewed Results Reviewed: Name: Edilson Gillette Age/Sex: 74/M : 1950 Unit#: [id number] Attend Dr: Ana Maria Ga MD Re02/05/25 Status: DEP REF Location: [facility] Disch: SPEC : [id number] OSEAS: 02/05/25 STATUS: COMP REQ : [id number] RECD: 02/05/25-[address]: Ana Maria Ga MD COMP: 02/05/25 ENTERED: 02/05/25 [facility] DR: ORDERED: CBC Auto Diff Test Result Flag Reference WBC 5.7 4.8-10.8 X10*3/uL RBC 4.17 L 4.60-5.80 X10*6/uL HGB 13.0 L 14.0-18.0 g/dl HCT 39.4 L 42.0-52.0 % MCV 94.5 80.0-98.0 fL MCH 31.2 27.0-33.0 pg MCHC 33.0 31.0-36.0 g/dl RDW 14.5 11.0-16.0 % PLT 237 160-400 X10*3/uL MPV 10.3 9.4-12.4 fL Neut Pct Auto 40.0 L 45-73 % ImGran Pct Auto 0.2 0.0-0.4 % Lymp Pct Auto 45.8 H 20-40 % Boone Pct Auto 10.1 2-11 % Eos Pct Auto 3.4 0-4 % Baso Pct Auto 0.5 0-2 % NRBC Pct Auto 0.0 0.0-0.2 /100WBC ANC Neut Abs # 2.3 2.0-8.3 x10*3/uL ImGran Abs Auto 0.01 0.00-0.03 X10*3/uL Lymph Abs Auto 2.6 1.2-4.9 X10*3/uL Boone Abs Auto 0.6 0.1-1.2 X10*3/uL Eos Abs Auto 0.2 0.0-0.4 X10*3/uL Baso Abs Auto 0.0 0.0-0.2 X10*3/uL NRBC Abs Auto 0.000 0.0-0.012 X10*3/uL RUN: 02/06/25 0816 PAGE 1 [facility] [address] [place] [id number] [employer] B[employer] Developer: Abraham Croft M.D. Specimen Inquiry Name: Edilson Gillette Age/Sex: 74/M : 1950 Unit#: [id number] Attend Dr: Ana Maria Ga MD Re02/05/25 Status: DEP [facility]F [facility] Disch: SPEC : [id number] OSEAS: 02/05/25 STATUS: COMP REQ : [id number] RECD: 02/05/25-[address]: Ana Maria Ga MD COMP: 02/05/25 ENTERED: 02/05/25-48 [facility] DR: ORDERED: Met Prof Fast, IRON PROF, AST, ALT, Lipid Panel, Vitamin D 25-OH Test Result Flag Reference Sodium 145 135-145 mmol/L Potassium 4.3 3.3-5.1 mmol/L CL 111 H 96-108 mmol/L CO2 25 22-29 mmol/L Gap 13 12-20 BUN 14 9-16 mg/dL Creat 1.07 0.5-1.4 mg/dL eGFR > 60 Chronic Kidney Disease: Estimated GFR < 60 mL/min/1.73m2 Severe Kidney Disease: Estimated GFR < 15 mL/min/1.73m2 FBS 114 H 60-99 mg/dL A fasting glucose from 100-125 mg/dl is considered imp aired (pre-diabetes). CA 9.9 8.4-10.2 mg/dL Iron 58 45-160 mcg/dL TIBC 241 228-428 mcg/dL Saturation 24 15-50 % UIBC 183 ug/dL AST (GOT) 32 5-37 U/L ALT (GPT) 39 0-40 U/L Triglyceride 112 <150 mg/dL Desirable Triglyceride: less than 150 mg/dL Borderline High Triglyceride 150-199 mg/dL High Triglyceride: 200-499 mg/dL Very High Triglyceride: greater than or equal to 5OO mg/dL Cholesterol 110 <200 mg/dL Desirable Cholesterol: less than 200 mg/dL Borderline High Cholesterol: 200-239 mg/dL High Cholesterol: greater than 239 mg/dL LDL Calculated 55 <100 mg/dL Desirable LDL: less than 100 mg/dL Near Optimal/Above Optimal LDL: 110-129 mg/dL Borderline High LDL: 130-159 mg/dL High LDL: 160-189 mg/dL Very High LDL: greater than or equal to 190 mg/dL HDL 33 L >40 mg/dL Desirable HDL: greater than 40 mg/dL Note: This HDL assay may give artificially low results in patients with liver disease. Vitamin D 25-OH 44.1 >30 ng/mL Health Based Reference Values* < 20 ng/mL Deficient 20-30 ng/mL Insufficient > 30 ng/mL Sufficient Laboratory Tests 01/16/25 12:05 Estimat Average Glucose 111 Hemoglobin A1c % 5.5 Coding Level of Care Code Est Pt Level 4 (79562) Diagnoses Mixed hyperlipidemia E78.2 Hyperlipidemia type: mixed hyperlipidemia Essential hypertension I10 Elevated fasting glucose R73.01 Anxiety and depression F41.9; F32.A Anemia, unspecified type D64.9 Anemia type: unspecified type Nocturia R35.1 Additional Codes PHQ-9 - 05568 - PHQ-9 Billing: Yes ([id number]) Assessment & Plan Assessment & Plan (1) Hyperlipidemia: Code(s): E78.5 - Hyperlipidemia, unspecified Category: Medical Qualifiers: Hyperlipidemia type: mixed hyperlipidemia Qualified Code(s): E78.2 - Mixed hyperlipidemia Plan: Fasting lipids are within normal limits continued [place] 3 fatty acid supplements and atorvastatin 20 mg daily (2) Essential hypertension: Code(s): I10 - Essential (primary) hypertension Category: Medical Plan: Blood pressure stable and controlled on current dose of amlodipine 5 mg once a day (3) Elevated fasting glucose: Code(s): R73.01 - Impaired fasting glucose Category: Medical Plan: Your previous fasting blood sugars were elevated above 100 mg/dL. Impaired glucose metabolism increases the risk for developing diabetes mellitus type 2, as well as heart attack and stroke later on. Lifestyle changes that promotes weight loss, healthy eating habits, and regular exercise are important, and can prevent the progression to diabetes (4) Anxiety and depression: Code(s): F41.9 - Anxiety disorder, unspecified; F32.A - Depression, unspecified Category: Medical Plan: Controlled on sertraline continue at 50 mg daily (5) Anemia: Code(s): D64.9 - Anemia, unspecified Category: Medical Qualifiers: Anemia type: unspecified type Qualified Code(s): D64.9 - Anemia, unspecified Plan: Still with mild anemia, patient has already been referred to GI Clinic and is awaiting appointment to get his screening colonoscopy done (6) Nocturia: Code(s): R35.1 - Nocturia Plan: Will check total PSA and urinalysis with reflex culture and sensitivity Orders: Orders PSA,Total (Free>4and<10) 02/06/25 R35.1 - Nocturia UA CC w/rflx Micro + Cult 02/06/25 R35.1 - Nocturia
== END 2025-02-06 11:46 | disposition home or self-care (01) ==
LOC: HO.HMCC 08:07
PROVIDERS: PCP Internal Medicine; Visit Provider Internal Medicine
DX: E78.2 Mixed hyperlipidemia (principal); I10 Essential (primary) hypertension; R73.01 Impaired fasting glucose; F41.9 Anxiety disorder, unspecified; F32.A Depression, unspecified; D64.9 Anemia, unspecified; R35.1 Nocturia

== ENCOUNTER 2025-02-06 08:06 | Outpatient (REF) | payer MEDICARE, SELFPAY ==
[2025-02-06 10:20] LABS: Appearance Urine Clear; Glucose Urine UA Negative (Negative); PH 5.5 (5.0-9.0); Specific Gravity - Urine 1.025 (1.005-1.025)
[2025-02-06 11:26] LABS: PSA,Total (Free>4and<10) 3.66 ng/mL (0.00-4.00)
== END 2025-02-06 08:07 | disposition home or self-care (01) ==
LOC: HO.HMGCLDS 08:06
PROVIDERS: PCP Internal Medicine; Visit Provider Internal Medicine
DX: E78.2 Mixed hyperlipidemia (principal); I10 Essential (primary) hypertension; R73.01 Impaired fasting glucose; F41.9 Anxiety disorder, unspecified; F32.A Depression, unspecified; D64.9 Anemia, unspecified; R35.1 Nocturia; Z79.899 Other long term (current) drug therapy; Z12.5 Encounter for screening for malignant neoplasm of prostate; Z13.31 Encounter for screening for depression
CPT/HCPCS: 36415; 81003; 84153; 96127; 99212

== ENCOUNTER 2025-03-01 12:53 | Outpatient (AMB) | payer MEDICARE, SELFPAY ==
--- OUTSIDE RECORDS SUMMARY | 2025-01-16 07:28 | XMS_ITS | Continuity of Care Document ---
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 It does not include entries that were removed or entered in error. Problem Status Onset Date Problem Type Date of Resolution Comments Source Benign essential hypertension Active Condition [facility] Depression ([facility] [id number]) Active Condition [place] HTN - Hypertension ([facility] [id number]) [facility] Active Condition [facility] Hyperlipidemia ([facility] [id number]) Active Condition [place] Keratosis Active Condition [place] Obesity Active Condition [facility] Under care of multiple providers Active Condition Oct 03 Entered By: DANILO LUEVANO Comment: [place] PCP: Ketty bartholomew 12/2023 P: [phone] Oct 04, 2023 Entered By: DANILO LUEVANO Comment: [facility] PCP: Ana Maria dee 01/2024 P: [phone] Oct 04, 2023 Entered By: DANILO LUEVANO Comment: Optometry: Bucky Alatorre P: [phone] [place] [facility] [place] [facility] Urinary frequency Active Condition [facility] [place] Diagnosis: ICD-10-CM I10 Essential (primary) hypertension Active Diagnosis [place] Diagnosis: ICD-10-CM L82.1 Other seborrheic keratosis Active Diagnosis [facility] Diagnosis: ICD-10-CM Z13.89 Encounter for screening for other disorder Active Diagnosis [facility] [facility] Medications Combined list of outpatient medications [...] ACTIVE REGIS GARY K 2017 [facility] AMLODIPINE BESYLATE 5MG TAB TAKE ONE TABLET BY MOUTH ONCE DAILY ORAL ACTIVE STELEA,CA [facility] 2023 [facility]ELD ASCORBIC ACID 500MG TAB TAKE ONE TABLET BY MOUTH ONCE DAILY ORAL ACTIVE STELEA,CA [facility] 2023 [facility] IELD ATORVASTATI N CA 40MG TAB TAKE ONE-HALF TABLET BY MOUTH ONCE DAILY ORAL ACTIVE STELEA,CA [facility] 2023 [facility]ELD CYANOCOBALA MIN TAB TAKE BY MOUTH ORAL ACTIVE STELEA,CA [facility] 2023 [facility]ELD HYDROCHLORO THIAZIDE 25MG TAB TAKE ONE TABLET BY MOUTH EVERY MORNING ORAL ACTIVE GARY,UDA Y K 2017 [facility] HYDROCHLORO THIAZIDE 25MG TAB TAKE ONE TABLET BY MOUTH ONCE DAILY ORAL ACTIVE STELEA,CA [facility] 2023 [facility] IELD MULTIVITAMI NS CAP/TAB TAKE ONE TABLET BY MOUTH ONCE DAILY ORAL ACTIVE GARY,UDA Y K 2017 [facility] SERTRALINE HCL 100MG TAB TAKE ONE-HALF TABLET BY MOUTH ONCE DAILY ORAL ACTIVE STELEA,CA [facility] 2023 [facility] IELD TRAZODONE HCL 100MG TAB TAKE ONE-HALF TABLET BY MOUTH ONCE DAILY ORAL ACTIVE STELEA,CA [facility] 2023 [facility]ELD VITAMIN D3 (CHOLECALCI FEROL) TAB TAKE BY MOUTH ONCE DAILY ORAL ACTIVE STELEA,CA [facility] 2023 [facility]ELD VITAMIN E CAP,ORAL TAKE BY MOUTH ORAL ACTIVE STELEA,CA [facility] 2023 [facility] IELD Immunizations Combined list of available immunizations from the Department of Defense and Veterans Affairs facilities. 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 Comments Source INFLUENZA, UNSPECIFIED FORMULATION 2023 88 complet ed HISTORICA L INFORMATI ON - SOURCE UNSPECIFI ED, [place] [facility] [place] [facility] TDAP 2023 MATTIE VIVAS RIGHT DELTO ID [id number] 115 complet ed [facility] IELD INFLUENZA, UNSPECIFIED FORMULATION 2022 88 complet ed HISTORICA L INFORMATI ON - FROM PATIENT'S RECALL, [facility] [place] [facility] INFLUENZA, SEASONAL, INJECTABLE 2017 141 complet ed [place] [facility] INFLUENZA, SEASONAL, INJECTABLE 2016 141 complet ed Site: Left Deltoid [facility] Results Combined list of [...] Oct 02, 2024 01:07 PM Reporting Lab: [address] [address] Performing Lab: [address] [address] [place] ([facility]) HEPATITI S C ANTIBODY (HCV)-AR C HEPATITIS C VIRUS AB [PRESENCE] IN SERUM NON-REAC TIVE 11/04 Specimen Type: SERUM Comment: Hep C Ab: No HCV antibody detected. If recent infection is suspected or other evidence suggests HCV infection, consider HCV nucleic acid testing Ordering Provider: GEORGIA LUEVANO Report Released Date/Time: Oct 01, 2023 12:05 PM Reporting Lab: [facility] [address] [facility] [address] Performing Lab: [address] [address] [place] HIV 1&2 Ag/Ab SCREEN HIV 1+2 AB+HIV1 P24 AG [PRESENCE] IN SERUM OR PLASMA BY IMMUNOASSA Y NON-REAC TIVE 11/04 Specimen Type: SERUM No comment entered. Ordering Provider: GEORGIA LUEVANO Report Released Date/Time: Oct 01, 2023 12:05 PM Reporting Lab: [address] [address] Performing Lab: [address] [address] [facility] VITAMIN D 25-OH (Therapy monitor) [...] additional information , please refer to [email or web address] .Immediately/faq/FA Q199 (This link is being provided for information al/ educational purposes only.) This test was developed and its analytical performance characteris tics have been determined by [employer] [place]. It has not been cleared or approved by the U.S. Food and Drug Administrat ion. This assay has been validated pursuant to the CLIA regulations and is used for clinical purposes. This test was developed and its analytical performance characteris tics have been determined by [employer] [place]. It has not been cleared or approved by the U.S. Food and Drug Administrat ion. This assay has been validated pursuant to the CLIA regulations and is used for clinical purposes. Test Performed by [facility], [employer] [facility] [place], [address] [place] [address] Yoan Bach M.D., Ph.D., Director of Laboratorie s , CLIA [id number] TEST PERFORMED AT: , Ordering Provider: GEORGIA LUEVANO Report Released Date/Time: Oct 01, 2023 12:05 PM Reporting Lab: [facility] [employer] [address] Performing Lab: [facility] [address] [address] [facility] VITAMIN D 25-OH (Therapy monitor) 25-HYDROXY [...] additional information , please refer to [email or web address] .Immediately/faq/FA Q199 (This link is being provided for information al/ educational purposes only.) This test was developed and its analytical performance characteris tics have been determined by [employer] [place]. It has not been cleared or approved by the U.S. Food and Drug Administrat ion. This assay has been validated pursuant to the CLIA regulations and is used for clinical purposes. This test was developed and its analytical performance characteris tics have been determined by [employer] [place]. It has not been cleared or approved by the U.S. Food and Drug Administrat ion. This assay has been validated pursuant to the CLIA regulations and is used for clinical purposes. Test Performed by [facility], [employer] [facility], [address] [place] [address] Yoan Bach M.D., Ph.D., Director of Laboratorie s , CLIA [id number] TEST PERFORMED AT: , Ordering Provider: GEORGIA LUEVANO Report Released Date/Time: Oct 01, 2023 12:05 PM Reporting Lab: [facility] [address] [facility] [address] Performing Lab: [facility] [address] [address] [facility] VITAMIN D 25-OH (Therapy monitor) CALCIFEROL [...] additional information , please refer to [email or web address] .Immediately/faq/FA Q199 (This link is being provided for information al/ educational purposes only.) This test was developed and its analytical performance characteris tics have been determined by [employer] [place]. It has not been cleared or approved by the U.S. Food and Drug Administrat ion. This assay has been validated pursuant to the CLIA regulations and is used for clinical purposes. This test was developed and its analytical performance characteris tics have been determined by [employer] [place]. It has not been cleared or approved by the U.S. Food and Drug Administrat ion. This assay has been validated pursuant to the CLIA regulations and is used for clinical purposes. Test Performed by [facility], [employer] [facility], [address] [place] [address] Yoan Bach M.D., Ph.D., Director of Laboratorie s , CLIA [id number] TEST PERFORMED AT: , Ordering Provider: GEORGIA LUEVANO Report Released Date/Time: Oct 01, 2023 12:05 PM Reporting Lab: [facility] [address] [facility] [address] Performing Lab: [place] [id number] [facility], [address] [place] [address] [place] BASIC METABOLI C PANEL (fasting ) UREA NITROGEN [MASS/VOLU ME] IN SERUM OR PLASMA 17 mg/dL 7 - 25 11/04 Specimen Type: SERUM No comment entered. Ordering Provider: GEORGIA LUEVANO Report Released Date/Time: Oct 01, 2023 12:05 PM Reporting Lab: [facility] [address] [address] Performing Lab: [facility] [address] [address] [email or web address] BASIC METABOLI C PANEL (fasting ) GLUCOSE [MASS/VOLU ME] IN SERUM OR PLASMA 106 mg/dL 65 - 100 11/04 H Specimen Type: SERUM No comment entered. Ordering Provider: GEORGIA LUEVANO Report Released Date/Time: Oct 01, 2023 12:05 PM Reporting Lab: [address] [address] Performing Lab: [facility] [address] [address] [email or web address] BASIC METABOLI C PANEL (fasting ) SODIUM [MOLES/VOL UME] IN SERUM OR PLASMA 143 mmol/L 135 - 145 11/04 Specimen Type: SERUM No comment entered. Ordering Provider: GEORGIA LUEVANO Report Released Date/Time: Oct 01, 2023 12:05 PM Reporting Lab: [address] [address] Performing Lab: [facility] [address] [address] [email or web address] BASIC METABOLI C PANEL (fasting ) POTASSIUM [MOLES/VOL UME] IN SERUM OR PLASMA 3.9 mmol/L 3.5 - 5.0 11/04 Specimen Type: SERUM No comment entered. Ordering Provider: GEORGIA LUEVANO Report Released Date/Time: Oct 01, 2023 12:05 PM Reporting Lab: [address] [address] Performing Lab: [facility] [address] [address] [place] BASIC METABOLI C PANEL (fasting ) CHLORIDE [MOLES/VOL UME] IN SERUM OR PLASMA 107 mmol/L 100 - 110 11/04 Specimen Type: SERUM No comment entered. Ordering Provider: GEORGIA LUEVANO Report Released Date/Time: Oct 01, 2023 12:05 PM Reporting Lab: [address] [address] Performing Lab: [address] [address] [place] BASIC METABOLI C PANEL (fasting ) CARBON DIOXIDE, TOTAL [MOLES/VOL UME] IN SERUM OR PLASMA 26 meq/L 20 - 30 11/04 Specimen Type: SERUM No comment entered. Ordering Provider: GEORGIA LUEVANO Report Released Date/Time: Oct 01, 2023 12:05 PM Reporting Lab: [address] [address] Performing Lab: [address] [address] [place] BASIC METABOLI C PANEL (fasting ) CREATININE [MASS/VOLU ME] IN SERUM OR PLASMA 1.15 mg/dL 0.50 - 1.40 11/04 Specimen Type: SERUM No comment entered. Ordering Provider: GEORGIA LUEVANO Report Released Date/Time: Oct 01, 2023 12:05 PM Reporting Lab: [address] [address] Performing Lab: [address] [address] [place] BASIC METABOLI C PANEL (fasting ) GLOMERULAR FILTRATION RATE/1.73 SQ M.PREDICTE D [VOLUME RATE/AREA] IN SERUM, PLASMA OR BLOOD BY CREATININE -BASED FORMULA (CKD-EPI 2020) 68 mL/min 60 11/04 Specimen Type: SERUM No comment entered. Ordering Provider: GEORGIA LUEVANO Report Released Date/Time: Oct 01, 2023 12:05 PM Reporting Lab: [facility] [address] [facility] [address] Performing Lab: [facility] [address] [facility] [address] [place] LIPID PANEL FASTING CHOLESTERO L [MASS/VOLU ME] IN SERUM OR PLASMA 131 mg/dL 11/04 Specimen Type: SERUM No comment entered. Ordering Provider: GEORGIA LUEVANO Report Released Date/Time: Oct 01, 2023 12:05 PM Reporting Lab: [facility] [address] [facility] [address] Performing Lab: [facility] SYSTEMRTAYLOR [facility]ILITYN [address] [address] [place] LIPID PANEL FASTING TRIGLYCERI DE [MASS/VOLU ME] IN SERUM OR PLASMA 207 mg/dL 0 - 150 11/04 H Specimen Type: SERUM No comment entered. Ordering Provider: GEORGIA LUEVANO Report Released Date/Time: Oct 01, 2023 12:05 PM Reporting Lab: [facility] TRN [address] [address] Performing Lab: [facility] SYSTEMRTAYLOR [facility]ACILITYN [address] [address] [place] LIPID PANEL FASTING CHOLESTERO L IN LDL [MASS/VOLU ME] IN SERUM OR PLASMA BY CALCULATIO N 58 mg/dL 0 - 129 11/04 Specimen Type: SERUM No comment entered. Ordering Provider: GEORGIA LUEVANO Report Released Date/Time: Oct 01, 2023 12:05 PM Reporting Lab: [facility] TRN [address] [address] Performing Lab: [facility] SYSTEMRTAYLOR [facility]ACILITYN [address] [address] [place] LIPID PANEL FASTING CHOLESTERO L.TOTAL/CH OLESTEROL IN HDL [MASS RATIO] IN SERUM OR PLASMA 4.1 11/04 Specimen Type: SERUM No comment entered. Ordering Provider: GEORGIA LUEVANO Report Released Date/Time: Oct 01, 2023 12:05 PM Reporting Lab: [facility] [address] [facility] [address] Performing Lab: [facility] [address] [address] [place] LIPID PANEL FASTING CHOLESTERO L IN HDL [MASS/VOLU ME] IN SERUM OR PLASMA 32 mg/dL 40 - 60 11/04 L Specimen Type: SERUM No comment entered. Ordering Provider: GEORGIA LUEVANO Report Released Date/Time: Oct 01, 2023 12:05 PM Reporting Lab: [facility] [address] [address] Performing Lab: [address] [address] [place] LIVER FUNCTION PROTEIN [MASS/VOLU ME] IN SERUM OR PLASMA 7.3 g/dL 6.0 - 8.3 11/04 Specimen Type: SERUM No comment entered. Ordering Provider: GEORGIA LUEVANO Report Released Date/Time: Oct 01, 2023 12:05 PM Reporting Lab: [facility] [address] [address] Performing Lab: [address] [address] [place] LIVER FUNCTION ALBUMIN [MASS/VOLU ME] IN SERUM OR PLASMA 3.9 g/dL 3.5 - 5.0 11/04 Specimen Type: SERUM No comment entered. Ordering Provider: GEORGIA LUEVANO Report Released Date/Time: Oct 01, 2023 12:05 PM Reporting Lab: [address] [address] Performing Lab: [address] [address] [place]IVER FUNCTION ALKALINE PHOSPHATAS E [ENZYMATIC ACTIVITY/V OLUME] IN SERUM OR PLASMA 87 U/L 40 - 150 11/04 Specimen Type: SERUM No comment entered. Ordering Provider: GEORGIA LUEVANO Report Released Date/Time: Oct 01, 2023 12:05 PM Reporting Lab: [facility] [address] [address] Performing Lab: [address] [address] [place] LIVER FUNCTION ASPARTATE AMINOTRANS FERASE [ENZYMATIC ACTIVITY/V OLUME] IN SERUM OR PLASMA 40 U/L 5 - 34 11/04 H Specimen Type: SERUM No comment entered. Ordering Provider: GEORGIA LUEVANO Report Released Date/Time: Oct 01, 2023 12:05 PM Reporting Lab: [facility] [address] [address] Performing Lab: [address] [address] [place] LIVER FUNCTION ALANINE AMINOTRANS FERASE [ENZYMATIC ACTIVITY/V OLUME] IN SERUM OR PLASMA 31 U/L 11/04 Specimen Type: SERUM No comment entered. Ordering Provider: GEORGIA LUEVANO Report Released Date/Time: Oct 01, 2023 12:05 PM Reporting Lab: [address] [address] Performing Lab: [address] [address] [place] LIVER FUNCTION BILIRUBIN. TOTAL [MASS/VOLU ME] IN SERUM OR PLASMA 0.5 mg/dL 0.2 - 1.2 11/04 Specimen Type: SERUM No comment entered. Ordering Provider: GEORGIA LUEVANO Report Released Date/Time: Oct 01, 2023 12:05 PM Reporting Lab: [address] [address] Performing Lab: [address] [address] [place] CBC AND DIFF (AUTO) LEUKOCYTES [#/VOLUME] IN BLOOD BY AUTOMATED COUNT 5.07 10*3/uL 4.50 - 11.00 11/04 Specimen Type: BLOOD No comment entered. Ordering Provider: GEORGIA LUEVANO Report Released Date/Time: Oct 01, 2023 12:05 PM Reporting Lab: [facility] [address] [facility] [address] Performing Lab: [facility] SYSTEMRL TRN [facility] [address] [address] [place] CBC AND DIFF (AUTO) ERYTHROCYT ES [#/VOLUME] IN BLOOD BY AUTOMATED COUNT 4.11 10*6/uL 4.23 - 5.66 11/04 L Specimen Type: BLOOD No comment entered. Ordering Provider: GEORGIA LUEVANO Report Released Date/Time: Oct 01, 2023 12:05 PM Reporting Lab: [facility]RL [facility]N [facility] [address] [address] Performing Lab: [facility] SYSTEMRTAYLOR [facility] FACILITYN [facility]ENTERUSE[address] [address] [place] CBC AND DIFF (AUTO) HEMOGLOBIN [MASS/VOLU ME] IN BLOOD 12.6 g/dL 12.8 - 17 11/04 L Specimen Type: BLOOD No comment entered. Ordering Provider: GEORGIA LUEVANO Report Released Date/Time: Oct 01, 2023 12:05 PM Reporting Lab: [facility]RL [facility]N [facility] [address] [address] Performing Lab: [facility] SYSTEMRL TRN [facility]ENTERUSETS [address] [address] [place] CBC AND DIFF (AUTO) HEMATOCRIT [VOLUME FRACTION] OF BLOOD BY AUTOMATED COUNT 38.3 39.2 - 50.4 11/04 L Specimen Type: BLOOD No comment entered. Ordering Provider: GEORGIA LUEVANO Report Released Date/Time: Oct 01, 2023 12:05 PM Reporting Lab: [facility]RL TRN [facility]ENTERUSETS [address] [address] Performing Lab: [facility] SYSTEMRNOLAND [facility] MONTGOMERYTRN [facility]ENTERUSE[address] [address] [place] CBC AND DIFF (AUTO) MCV [ENTITIC VOLUME] BY AUTOMATED COUNT 93.2 fL 82 - 99 11/04 Specimen Type: BLOOD No comment entered. Ordering Provider: GEORGIA LUEVANO Report Released Date/Time: Oct 01, 2023 12:05 PM Reporting Lab: [facility] SYSTEMRL WSTRN [facility]ENTERUSETS [facility] [address] [facility] [address] Performing Lab: [facility] SYSTEMRL TRN [facility]ENTERUSETS [facility] [address] [facility] [address] [place] CBC AND DIFF (AUTO) MCHC [MASS/VOLU ME] BY AUTOMATED COUNT 32.9 g/dL 30.8 - 35.1 11/04 Specimen Type: BLOOD No comment entered. Ordering Provider: GEORGIA LUEVANO Report Released Date/Time: Oct 01, 2023 12:05 PM Reporting Lab: [facility]RL TRN [facility] [address] [facility] [address] Performing Lab: [facility] SYSTEMRNOLAND [facility]OSP[facility] MONTGOMERYTRN [facility]ENTERUSE[address] [address] [place] CBC AND DIFF (AUTO) PLATELETS [#/VOLUME] IN BLOOD BY AUTOMATED COUNT 220 10*3/uL 140 - 360 11/04 Specimen Type: BLOOD No comment entered. Ordering Provider: GEORGIA LUEVANO Report Released Date/Time: Oct 01, 2023 12:05 PM Reporting Lab: [facility] SYSTEMRNOL[facility] MONTGOMERYTRN [facility] [address] [facility] [address] Performing Lab: [facility] SYSTEMRL TRN [facility]ENTERUSE[address] [address] [place] CBC AND DIFF (AUTO) ERYTHROCYT E DISTRIBUTI ON WIDTH [RATIO] BY AUTOMATED COUNT 14.1 12.0 - 16.0 11/04 Specimen Type: BLOOD No comment entered. Ordering Provider: GEORGIA LUEVANO Report Released Date/Time: Oct 01, 2023 12:05 PM Reporting Lab: [facility] SYSTEMRL WSTRN [facility] CENTERUSETS [address] [address] Performing Lab: [facility] SYSTEMRL TRN [facility]ENTERUSE[address] [address] [place] CBC AND DIFF (AUTO) MONOCYTES [#/VOLUME] IN BLOOD BY AUTOMATED COUNT 0.49 10*3/uL 0.30 - 1.10 11/04 Specimen Type: BLOOD No comment entered. Ordering Provider: GEORGIA LUEVANO Report Released Date/Time: Oct 01, 2023 12:05 PM Reporting Lab: [place] [facility] [place] [facility] [address] [facility] [address] Performing Lab: [place] [facility] [facility] [address] [facility] [address] [place] CBC AND DIFF (AUTO) MCH [ENTITIC MASS] BY AUTOMATED COUNT 30.7 pg 26.2 - 32.6 11/04 Specimen Type: BLOOD No comment entered. Ordering Provider: GEORGIA LUEVANO Report Released Date/Time: Oct 01, 2023 12:05 PM Reporting Lab: [place] [facility] [place] [facility] [address] [facility] [address] Performing Lab: [place] [facility] [place] [address] [address] [place] CBC AND DIFF (AUTO) NEUTROPHIL S/100 LEUKOCYTES IN BLOOD BY AUTOMATED COUNT 48.8 43.7 - 75.8 11/04 Specimen Type: BLOOD No comment entered. Ordering Provider: GEORGIA LUEVANO Report Released Date/Time: Oct 01, 2023 12:05 PM Reporting Lab: [place] [facility] [place] [address] [address] Performing Lab: [place] [facility] [address] [address] [place] CBC AND DIFF (AUTO) LYMPHOCYTE S/100 LEUKOCYTES IN BLOOD BY AUTOMATED COUNT 37.5 14.0 - 42.3 11/04 Specimen Type: BLOOD No comment entered. Ordering Provider: GEORGIA LUEVANO Report Released Date/Time: Oct 01, 2023 12:05 PM Reporting Lab: [place] [facility] [place] [address] [address] Performing Lab: [place] [facility] [place] [address] [address] [place] CBC AND DIFF (AUTO) MONOCYTES/ 100 LEUKOCYTES IN BLOOD BY AUTOMATED COUNT 9.7 5.1 - 13.7 11/04 Specimen Type: BLOOD No comment entered. Ordering Provider: GEORGIA LUEVANO Report Released Date/Time: Oct 01, 2023 12:05 PM Reporting Lab: [facility] [address] [facility] [address] Performing Lab: [place] [facility] [facility] CENTERUSETS [address] [address] [place] CBC AND DIFF (AUTO) EOSINOPHIL S/100 LEUKOCYTES IN BLOOD BY AUTOMATED COUNT 3.2 0.4 - 6.8 11/04 Specimen Type: BLOOD No comment entered. Ordering Provider: GEORGIA LUEVANO Report Released Date/Time: Oct 01, 2023 12:05 PM Reporting Lab: [place] [facility]ENTERUSETS [address] [address] Performing Lab: [place] [facility]TR[facility] MONTGOMERYTRN [facility]ENTERUSE[address] [address] [place] CBC AND DIFF (AUTO) BASOPHILS/ 100 LEUKOCYTES IN BLOOD BY AUTOMATED COUNT 0.6 0.1 - 2.0 11/04 Specimen Type: BLOOD No comment entered. Ordering Provider: GEORGIA LUEVANO Report Released Date/Time: Oct 01, 2023 12:05 PM Reporting Lab: [facility] [address] [address] Performing Lab: [place] [facility] [address] [address] [place] CBC AND DIFF (AUTO) NEUTROPHIL S [#/VOLUME] IN BLOOD BY AUTOMATED COUNT 2.48 10*3/uL 2.20 - 7.60 11/04 Specimen Type: BLOOD No comment entered. Ordering Provider: GEORGIA LUEVANO Report Released Date/Time: Oct 01, 2023 12:05 PM Reporting Lab: [place] [facility] WSTRN [facility] [address] [address] Performing Lab: [facility]RN[facility] MONTGOMERYTRN [facility]ENTERUSETS [address] [address] [place] CBC AND DIFF (AUTO) LYMPHOCYTE S [#/VOLUME] IN BLOOD BY AUTOMATED COUNT 1.90 10*3/uL 1.00 - 3.20 11/04 Specimen Type: BLOOD No comment entered. Ordering Provider: GEORGIA LUEVANO Report Released Date/Time: Oct 01, 2023 12:05 PM Reporting Lab: [facility] [address] Performing Lab: [facility] [address] [place] CBC AND DIFF (AUTO) EOSINOPHIL S [#/VOLUME] IN BLOOD BY AUTOMATED COUNT 0.16 10*3/uL 0.03 - 0.44 11/04 Specimen Type: BLOOD No comment entered. Ordering Provider: GEORGIA LUEVANO Report Released Date/Time: Oct 01, 2023 12:05 PM Reporting Lab: [facility] [address] [address] Performing Lab: [facility]N [address] [address] [place] CBC AND DIFF (AUTO) BASOPHILS [#/VOLUME] IN BLOOD BY AUTOMATED COUNT 0.03 10*3/uL 0.01 - 0.13 11/04 Specimen Type: BLOOD No comment entered. Ordering Provider: GEORGIA LUEVANO Report Released Date/Time: Oct 01, 2023 12:05 PM Reporting Lab: [facility] [address] [address] Performing Lab: [facility] [address] [place] CBC AND DIFF (AUTO) IMMATURE GRANULOCYT ES/100 LEUKOCYTES IN BLOOD BY AUTOMATED COUNT 0.2 0.0 - 0.7 11/04 Specimen Type: BLOOD No comment entered. Ordering Provider: GEORGIA LUEVANO Report Released Date/Time: Oct 01, 2023 12:05 PM Reporting Lab: [facility]ENTERUSETS [address] [address] Performing Lab: [facility]ENTER[facility] [address] [place] CBC AND DIFF (AUTO) IMMATURE GRANULOCYT ES [#/VOLUME] IN BLOOD 0.01 10*3/uL 0.00 - 0.06 11/04 Specimen Type: BLOOD No comment entered. Ordering Provider: GEORGIA LUEVANO Report Released Date/Time: Oct 01, 2023 12:05 PM Reporting Lab: [facility] [address] [address] Performing Lab: [address] [address] [place] HEMOGLOB IN A1C PANEL HEMOGLOBIN [...] 12:05 PM Reporting Lab: [facility] [address] [address] Performing Lab: [address] [address] [place] TSH THYROTROPI N [UNITS/VOL UME] IN SERUM OR PLASMA 1.63 u[IU]/mL 0.35 - 5.00 11/04 Specimen Type: SERUM No comment entered. Ordering Provider: GEORGIA LUEVANO Report Released Date/Time: Oct 01, 2023 12:05 PM Reporting Lab: [facility] [address] [address] Performing Lab: [facility] [address] [address] [place] Vital Signs Combined list of inpatient and outpatient Vital Signs from Department of Defense and Veterans Affairs, ranging from 12 months to all on record, depending upon the facility. Vital Sign Value Date Comments Source SYSTOLIC BLOOD PRESSURE 163 05/05/2024 10:00:43 [place] DIASTOLIC BLOOD PRESSURE 88 05/05/2024 10:00:43 [place] PULSE OXIMETRY 96 05/05/2024 10:00:43 Teresa FONSECA WEIGHT 200 05/05/2024 10:00:43 [facility] GUAN BMI 30 kg/m2 05/05/2024 10:00:43 [facility] PULSE 71 05/05/2024 10:00:43 ELIDA GUAN SYSTOLIC BLOOD PRESSURE 142 02/01/2024 14:40:00 [place] DIASTOLIC BLOOD PRESSURE 92 02/01/2024 14:40:00 [place] PULSE 68 02/01/2024 14:40:00 ELIDA GUAN Encounters Combined list of: 1) Encounters from Department of Veterans Affairs facilities going backup to the last 18 months, not all VA inpatient encounters are included; 2) Encounters from the Department of [facility] facilities going backup to 280 months. Location Location Details Encounter Type Encounter Number Reason For Visit Attending Provider ADM Date DC Date Status Disposition Source [facility] Encounter [id number] 09/21 [facility]counter [id number] 09/22 [facility] Out[facility] Encounter [id number] 09/30 [facility] [facility] OFFICE O/P NEW MOD 45 MIN [id number] Diagnos is: ICD-10- CM I10 Essenti al (primar y) hyperte nsion STELEA,CAR MEN F 09/30 [place] [facility] Encounter [id number] 09/30 [facility] [id number] 09/30 [facility] [id number] 09/30 [facility] Encounter [id number] 10/07 [facility] UNLISTED SPEC DERM SVC/PX [id number] Diagnos is: ICD-10- CM Z13.89 Encount er for screeni ng for other disorde r Tawanna TOMAS 10/14 [facility] [place] [facility] Outpatient Encounter [id number] 10/14 [facility] Outpatient Encounter [id number] Diagnos is: ICD-10- CM L82.1 Other seborrh eic keratos is LEANNE BRADEN 10/17 [facility] Out[facility] Encounter [id number] 10/17 [facility] Out[facility] Encounter [id number] 10/18 [facility] Encounter [id number] 10/19 [facility] OFFICE O/P EST LOW 20 MIN [id number] Diagnos is: ICD-10- CM I10 Essenti al (primar y) hyperte nsion STELEA,CAR MEN F 11/04 [place] [facility] Out[facility] Encounter [id number] 11/15 [facility] En[facility] [id number] 11/24 [facility] [place] OFFICE O/P EST MOD 30 MIN [id number] Diagnos is: ICD-10- CM I10 Essenti al (primar y) hyperte camila LUEVANOCAR LEXY F 01/02 [place] OFF/OP EST NOVEMBER X REQ PHY/QHP [id number] Diagnos is: ICD-10- CM I10 Essenti al (primar y) hyperte WILL Tran 01/31 [place] [facility] Outpatient Encounter [id number] [facility] [place] OFFICE O/P EST MOD 30 MIN [id number] Diagnos is: ICD-10- CM I10 Essenti al (primar y) hyperte ROLAND Kahn F 05/05 [place] [facility] Out[facility] Encounter [id number] 07/21 [facility] En[facility] [id number] 07/25 [facility] Encounter [id number] 08/10 [facility] Outpatient Encounter [id number] [facility] [facility] Social History Combined list of available smoking, tobacco, and other social history from Department of Defense and Veterans Affairs facilities. Social History Type Response Date Comment Sourc e Tobacco smoking status [facility] VA-TOBACCO NEVER USED 10[facility]01/2023 [facility] History of tobacco use VA-TOBACCO FORMER USER 07/12/2018 [facility] History of tobacco use LIFETIME NON-TOBACCO USER 07/13/2017 [facility] Advance Directives List of completed, amended, or rescinded Advance Directives on record at Department of Veterans Affairs facilities. An actual copy of the Directive is not included. Date Advance Directive Provider Source 10/15/2023 [facility]VANCE [facility]
[2025-03-01 13:07] VITALS: BP 142/60; PULSE 76; TEMP 36.7; O2SAT 96
--- NOTE | 2025-03-01 13:07 | MHC.OFFWIV ---
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 Reports that Chest pain is intermittent and started yesterday at night while sleeping. Denies any symptoms right now. Denies SOB, Wheezing, cough and Heart Palpitations. Reports that symptoms stopped this morning. [facility] Medical History (Updated 03/01/25 @ 13:53 by Lisette Rae NP) Chest pain Need for antibiotic prophylaxis for dental procedure Elevated vitamin B12 level Elevated fasting glucose Constipation Screening for colorectal cancer Anemia History of right inguinal hernia Anxiety and depression Hyperlipidemia Essential hypertension Surgical History Hx of colonoscopy Hx of inguinal herniorrhaphy History of appendectomy History of left knee replacement Family History Father Congenital heart disease Acute myocardial infarction Mother Systemic lupus erythematosus Osteoporosis Social History Housing: House Patient Tobacco Use Status: Former Tobacco user e-Cigarette/Vaping Use: Never Used service: Yes Current occupational status: retired Cognitive needs: No Hearing needs: No Vision needs: Yes Review of Systems Const All systems reviewed & are unremarkable except as noted in HPI and below Physical Exam Vital Signs: Last Vital Signs Temp 98.0 F 03/01/25 13:07 Pulse 76 03/01/25 13:07 BP 142/60 H 03/01/25 13:07 Pulse Ox 96 03/01/25 13:07 Oxygen Delivery Method Room Air 03/01/25 13:07 BMI result Body Mass Index 30.0 Const Orientation/consciousness: patient oriented x3 Resp Effort & Inspection: normal respiratory effort Auscultation: clear to auscultation bilaterally Cardio Jugular venous distension: no JVD Rate: regular rate Rhythm: regular rhythm Heart sounds: S1 normal heart sound present and S2 normal heart sound present Neuro General: patient oriented x3, gait normal and moves all extremities Psych Speech and movement: Normal speech and movement present Assessment & Plan Assessment & Plan (1) Chest pain: Code(s): R07.9 - Chest pain, unspecified Qualifiers: Chest pain type: unspecified Qualified Code(s): R07.9 - Chest pain, unspecified Plan: No symptoms right now - ECG deferred. Educated on the signs and symptoms to report to ED. Take HTN medications as prescribed. Avoid Stress and eat low salt diet. F/U with PCP Coding Level of Care Code Est Pt Level 4 (24113) Diagnoses Chest pain, unspecified type R07.9 Chest pain type: unspecified Time Spent (min) 20
== END 2025-03-01 13:38 | disposition home or self-care (01) ==
PROVIDERS: PCP Internal Medicine; Visit Provider Nurse Practitioner Family
DX: R07.9 Chest pain, unspecified (principal)

== ENCOUNTER → 2025-03-01 12:53 | Outpatient (BNVA) | payer MEDICARE, SELFPAY | PROVIDERS: PCP Internal Medicine; Visit Provider Nurse Practitioner Family | DX: R07.9 Chest pain, unspecified (principal) | CPT/HCPCS: 99212 ==

== ENCOUNTER 2025-03-09 09:44 | Outpatient (AMB) | payer MEDICARE, SELFPAY ==
--- OUTSIDE RECORDS SUMMARY | 2025-01-16 07:28 | XMS_ITS | Continuity of Care Document ---
Author Name [facility] Organization [facility] Care Team Providers Care De Icer Element Winder Name Role Phone [facility] Unavailable Unavailable Problems Combined list of problems from Department of Defense and Veterans Affairs facilities. It does not include entries that were removed or entered in error. Problem Status Onset Date Problem Type Date of Resolution Comments Source Benign essential hypertension Active Condition [facility] Depression ([facility] [id number]) Active Condition [place] HTN - Hypertension ([facility] [id number]) [facility] Active Condition [facility] Hyperlipidemia ([facility] [id number]) Active Condition [place] Keratosis Active Condition [place] Obesity Active Condition [facility] Under care of multiple providers Active Condition Oct 03 Entered By: DANILO LUEVANO Comment: [place] PCP: Ketty bartholomew 12/2023 P: [phone] Oct 04, 2023 Entered By: DANILO LUEVANO Comment: [facility] PCP: Ana Maria dee 01/2024 P: [phone] Oct 04, 2023 Entered By: DANILO LUEAVNO Comment: Optometry: Bucky Alatorre P: [phone] [facility] [place] [facility] Urinary frequency Active Condition [facility] [place] Diagnosis: ICD-10-CM I10 Essential (primary) hypertension Active Diagnosis [place] Diagnosis: ICD-10-CM L82.1 Other seborrheic keratosis Active Diagnosis [facility] Diagnosis: ICD-10-CM Z13.89 Encounter for screening for other disorder Active Diagnosis [place] Medications Combined list of outpatient medications [...] ACTIVE REGIS GARY K 2017 [facility] AMLODIPINE BESYLATE 5MG TAB TAKE ONE TABLET BY MOUTH ONCE DAILY ORAL ACTIVE [place] [facility] 2023 [facility] IELD ASCORBIC ACID 500MG TAB TAKE ONE TABLET BY MOUTH ONCE DAILY ORAL ACTIVE [place] [facility] 2023 [facility] IELD ATORVASTATI N CA 40MG TAB TAKE ONE-HALF TABLET BY MOUTH ONCE DAILY ORAL ACTIVE [place] [facility] 2023 [facility] IELD CYANOCOBALA MIN TAB TAKE BY MOUTH ORAL ACTIVE [place] [facility] 2023 [facility] IELD HYDROCHLORO THIAZIDE 25MG TAB TAKE ONE TABLET BY MOUTH EVERY MORNING ORAL ACTIVE GARY,UDA Y K 2017 [facility] HYDROCHLORO THIAZIDE 25MG TAB TAKE ONE TABLET BY MOUTH ONCE DAILY ORAL ACTIVE [place] [facility] 2023 [facility] IELD MULTIVITAMI NS CAP/TAB TAKE ONE TABLET BY MOUTH ONCE DAILY ORAL ACTIVE GARY,UDA Y K 2017 [facility] SERTRALINE HCL 100MG TAB TAKE ONE-HALF TABLET BY MOUTH ONCE DAILY ORAL ACTIVE [place] [facility] 2023 [facility] IELD TRAZODONE HCL 100MG TAB TAKE ONE-HALF TABLET BY MOUTH ONCE DAILY ORAL ACTIVE [place] [facility] 2023 [facility] IELD VITAMIN D3 (CHOLECALCI FEROL) TAB TAKE BY MOUTH ONCE DAILY ORAL ACTIVE [place] [facility] 2023 [facility] IELD VITAMIN E CAP,ORAL TAKE BY MOUTH ORAL ACTIVE [place] [facility] 2023 [facility] IELD Immunizations Combined list of available immunizations from the Department of Defense and Veterans Affairs facilities. 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 Physician Recruiter Status Comments Source INFLUENZA, UNSPECIFIED FORMULATION 2023 88 complet ed HISTORICA L INFORMATI ON - SOURCE UNSPECIFI ED, [facility] TDAP 2023 MATTIE VIVAS RIGHT DELTO ID [id number] 115 complet ed [facility] IELD INFLUENZA, UNSPECIFIED FORMULATION 2022 88 complet ed HISTORICA L INFORMATI ON - FROM PATIENT'S RECALL, [facility] [place] [facility] INFLUENZA, SEASONAL, INJECTABLE 2017 141 complet ed [place] [facility] INFLUENZA, SEASONAL, INJECTABLE 2016 141 complet ed Site: Left Deltoid [facility] Results Combined list of [...] Oct 02, 2024 01:07 PM Reporting Lab: [address] [address] Performing Lab: [address] [address] [place] ([facility]) HEPATITI S C ANTIBODY (HCV)-AR C HEPATITIS C VIRUS AB [PRESENCE] IN SERUM NON-REAC TIVE 11/04 Specimen Type: SERUM Comment: Hep C Ab: No HCV antibody detected. If recent infection is suspected or other evidence suggests HCV infection, consider HCV nucleic acid testing Ordering Provider: GEORGIA LUEVANO Report Released Date/Time: Oct 01, 2023 12:05 PM Reporting Lab: [facility] [address] [facility] [address] Performing Lab: [address] [address] [place] HIV 1&2 Ag/Ab SCREEN HIV 1+2 AB+HIV1 P24 AG [PRESENCE] IN SERUM OR PLASMA BY IMMUNOASSA Y NON-REAC TIVE 11/04 Specimen Type: SERUM No comment entered. Ordering Provider: GEORGIA LUEVANO Report Released Date/Time: Oct 01, 2023 12:05 PM Reporting Lab: [address] [address] Performing Lab: [address] [address] [facility] VITAMIN D 25-OH (Therapy monitor) 25-HYDROXY [...] additional information , please refer to http://educ ation.[employer] .BumpTop/faq/FA Q199 (This link is being provided for information al/ educational purposes only.) This test was developed and its analytical performance characteris tics have been determined by [employer] [place], [place]. It has not been cleared or approved by the U.S. Food and Drug Administrat ion. This assay has been validated pursuant to the CLIA regulations and is used for clinical purposes. This test was developed and its analytical performance characteris tics have been determined by [employer] [place], [place]. It has not been cleared or approved by the U.S. Food and Drug Administrat ion. This assay has been validated pursuant to the CLIA regulations and is used for clinical purposes. Test Performed by [facility], [employer] [place], [address] [place] [address] Yoan Bach M.D., Ph.D., Director of Laboratorie s , CLIA [id number] TEST PERFORMED AT: , Ordering Provider: GEORGIA LUEVANO Report Released Date/Time: Oct 01, 2023 12:05 PM Reporting Lab: [facility] [employer] [address] Performing Lab: [facility] [address] [address] [facility] VITAMIN D 25-OH (Therapy monitor) [...] additional information , please refer to http://educ ation.[employer] .BumpTop/faq/FA Q199 (This link is being provided for information al/ educational purposes only.) This test was developed and its analytical performance characteris tics have been determined by [employer] [place], [place]. It has not been cleared or approved by the U.S. Food and Drug Administrat ion. This assay has been validated pursuant to the CLIA regulations and is used for clinical purposes. This test was developed and its analytical performance characteris tics have been determined by [employer] [place]. It has not been cleared or approved by the U.S. Food and Drug Administrat ion. This assay has been validated pursuant to the CLIA regulations and is used for clinical purposes. Test Performed by [facility], [employer] [facility], [address] [place] [address] Yoan Bach M.D., Ph.D., Director of Laboratorie s , CLIA [id number] TEST PERFORMED AT: , Ordering Provider: GEORGIA LUEVANO Report Released Date/Time: Oct 01, 2023 12:05 PM Reporting Lab: [facility] [address] [facility] [address] Performing Lab: [facility] [address] [address] [facility] VITAMIN D 25-OH (Therapy monitor) [...] additional information , please refer to http://educ ation.[employer] .BumpTop/faq/FA Q199 (This link is being provided for information al/ educational purposes only.) This test was developed and its analytical performance characteris tics have been determined by [employer] [place]. It has not been cleared or approved by the U.S. Food and Drug Administrat ion. This assay has been validated pursuant to the CLIA regulations and is used for clinical purposes. This test was developed and its analytical performance characteris tics have been determined by [employer] [place]. It has not been cleared or approved by the U.S. Food and Drug Administrat ion. This assay has been validated pursuant to the CLIA regulations and is used for clinical purposes. Test Performed by [facility], [employer] [facility], [address] [place] [address] Yoan Bach M.D., Ph.D., Director of Laboratorie s , CLIA [id number] TEST PERFORMED AT: , Ordering Provider: GEORGIA LUEVANO Report Released Date/Time: Oct 01, 2023 12:05 PM Reporting Lab: [facility] [address] [facility] [address] Performing Lab: [place] [id number] [facility], [address] [place] [address] [place] BASIC METABOLI C PANEL (fasting ) UREA NITROGEN [MASS/VOLU ME] IN SERUM OR PLASMA 17 mg/dL 7 - 25 11/04 Specimen Type: SERUM No comment entered. Ordering Provider: GEORGIA LUEVANO Report Released Date/Time: Oct 01, 2023 12:05 PM Reporting Lab: [facility] [address] [address] Performing Lab: [facility] [address] [address] [employer] BASIC METABOLI C PANEL (fasting ) GLUCOSE [MASS/VOLU ME] IN SERUM OR PLASMA 106 mg/dL 65 - 100 11/04 H Specimen Type: SERUM No comment entered. Ordering Provider: GEORGIA LUEVANO Report Released Date/Time: Oct 01, 2023 12:05 PM Reporting Lab: [address] [address] Performing Lab: [facility] [address] [address] [employer] BASIC METABOLI C PANEL (fasting ) SODIUM [MOLES/VOL UME] IN SERUM OR PLASMA 143 mmol/L 135 - 145 11/04 Specimen Type: SERUM No comment entered. Ordering Provider: GEORGIA LUEVANO Report Released Date/Time: Oct 01, 2023 12:05 PM Reporting Lab: [address] [address] Performing Lab: [facility] [address] [address] [employer] BASIC METABOLI C PANEL (fasting ) POTASSIUM [MOLES/VOL UME] IN SERUM OR PLASMA 3.9 mmol/L 3.5 - 5.0 11/04 Specimen Type: SERUM No comment entered. Ordering Provider: GEORGIA LUEVANO Report Released Date/Time: Oct 01, 2023 12:05 PM Reporting Lab: [address] [address] Performing Lab: [facility] [address] [address] [place] BASIC METABOLI C PANEL (fasting ) CHLORIDE [MOLES/VOL UME] IN SERUM OR PLASMA 107 mmol/L 100 - 110 11/04 Specimen Type: SERUM No comment entered. Ordering Provider: GEORGIA LUEVANO Report Released Date/Time: Oct 01, 2023 12:05 PM Reporting Lab: [address] [address] Performing Lab: [address] [address] [place] BASIC METABOLI C PANEL (fasting ) CARBON DIOXIDE, TOTAL [MOLES/VOL UME] IN SERUM OR PLASMA 26 meq/L 20 - 30 11/04 Specimen Type: SERUM No comment entered. Ordering Provider: GEORGIA LUEVANO Report Released Date/Time: Oct 01, 2023 12:05 PM Reporting Lab: [address] [address] Performing Lab: [address] [address] [place] BASIC METABOLI C PANEL (fasting ) CREATININE [MASS/VOLU ME] IN SERUM OR PLASMA 1.15 mg/dL 0.50 - 1.40 11/04 Specimen Type: SERUM No comment entered. Ordering Provider: GEORGIA LUEAVNO Report Released Date/Time: Oct 01, 2023 12:05 PM Reporting Lab: [address] [address] Performing Lab: [address] [address] [place] BASIC METABOLI C PANEL (fasting ) GLOMERULAR FILTRATION RATE/1.73 SQ M.PREDICTE D [VOLUME RATE/AREA] IN SERUM, PLASMA OR BLOOD BY CREATININE -BASED FORMULA (CKD-EPI 2020) 68 mL/min 60 11/04 Specimen Type: SERUM No comment entered. Ordering Provider: GEORGIA LUEVANO Report Released Date/Time: Oct 01, 2023 12:05 PM Reporting Lab[facility] [address] [facility] [address] Performing Lab: [facility] [address] [facility] [address] [place] LIPID PANEL FASTING CHOLESTERO L [MASS/VOLU ME] IN SERUM OR PLASMA 131 mg/dL 11/04 Specimen Type: SERUM No comment entered. Ordering Provider: GEORGIA LUEVANO Report Released Date/Time: Oct 01, 2023 12:05 PM Reporting Lab: [facility] [address] [facility] [address] Performing Lab: [facility]ITALRPRATTVIL[facility]ITALN [address] [address] [place] LIPID PANEL FASTING TRIGLYCERI DE [MASS/VOLU ME] IN SERUM OR PLASMA 207 mg/dL 0 - 150 11/04 H Specimen Type: SERUM No comment entered. Ordering Provider: GEORGIA LUEVANO Report Released Date/Time: Oct 01, 2023 12:05 PM Reporting Lab: [facility] [address] [address] Performing Lab: [facility]ITALRPRATTVILLE B[facility] HOSPITALN [address] [address] [place] LIPID PANEL FASTING CHOLESTERO L IN LDL [MASS/VOLU ME] IN SERUM OR PLASMA BY CALCULATIO N 58 mg/dL 0 - 129 11/04 Specimen Type: SERUM No comment entered. Ordering Provider: GEORGIA LUEVANO Report Released Date/Time: Oct 01, 2023 12:05 PM Reporting Lab: [facility] [address] [address] Performing Lab: [facility]ITALRPRATTVIL[facility]ITALN [address] [address] [place] LIPID PANEL FASTING CHOLESTERO L.TOTAL/CH OLESTEROL IN HDL [MASS RATIO] IN SERUM OR PLASMA 4.1 11/04 Specimen Type: SERUM No comment entered. Ordering Provider: GEORGIA LUEVANO Report Released Date/Time: Oct 01, 2023 12:05 PM Reporting Lab: [facility] [address] [facility] [address] Performing Lab: [facility] [address] [address] [place] LIPID PANEL FASTING CHOLESTERO L IN HDL [MASS/VOLU ME] IN SERUM OR PLASMA 32 mg/dL 40 - 60 11/04 L Specimen Type: SERUM No comment entered. Ordering Provider: GEORGIA LUEVANO Report Released Date/Time: Oct 01, 2023 12:05 PM Reporting Lab: [facility] [address] [address] Performing Lab: [address] [address] [place] LIVER FUNCTION PROTEIN [MASS/VOLU ME] IN SERUM OR PLASMA 7.3 g/dL 6.0 - 8.3 11/04 Specimen Type: SERUM No comment entered. Ordering Provider: GEORGIA LUEVANO Report Released Date/Time: Oct 01, 2023 12:05 PM Reporting Lab: [facility] [address] [address] Performing Lab: [address] [address] [place] LIVER FUNCTION ALBUMIN [MASS/VOLU ME] IN SERUM OR PLASMA 3.9 g/dL 3.5 - 5.0 11/04 Specimen Type: SERUM No comment entered. Ordering Provider: GEORGIA LUEVANO Report Released Date/Time: Oct 01, 2023 12:05 PM Reporting Lab: [address] [address] Performing Lab: [address] [address] [place]IVER FUNCTION ALKALINE PHOSPHATAS E [ENZYMATIC ACTIVITY/V OLUME] IN SERUM OR PLASMA 87 U/L 40 - 150 11/04 Specimen Type: SERUM No comment entered. Ordering Provider: GEORGIA LUEVANO Report Released Date/Time: Oct 01, 2023 12:05 PM Reporting Lab: [facility] [address] [address] Performing Lab: [address] [address] [place] LIVER FUNCTION ASPARTATE AMINOTRANS FERASE [ENZYMATIC ACTIVITY/V OLUME] IN SERUM OR PLASMA 40 U/L 5 - 34 11/04 H Specimen Type: SERUM No comment entered. Ordering Provider: GEORGIA LUEVANO Report Released Date/Time: Oct 01, 2023 12:05 PM Reporting Lab: [facility] [address] [address] Performing Lab: [address] [address] [place] LIVER FUNCTION ALANINE AMINOTRANS FERASE [ENZYMATIC ACTIVITY/V OLUME] IN SERUM OR PLASMA 31 U/L 11/04 Specimen Type: SERUM No comment entered. Ordering Provider: GEORGIA LUEVANO Report Released Date/Time: Oct 01, 2023 12:05 PM Reporting Lab: [address] [address] Performing Lab: [address] [address] [place] LIVER FUNCTION BILIRUBIN. TOTAL [MASS/VOLU ME] IN SERUM OR PLASMA 0.5 mg/dL 0.2 - 1.2 11/04 Specimen Type: SERUM No comment entered. Ordering Provider: GEORGIA LUEVANO Report Released Date/Time: Oct 01, 2023 12:05 PM Reporting Lab: [address] [address] Performing Lab: [address] [address] [place] CBC AND DIFF (AUTO) LEUKOCYTES [#/VOLUME] IN BLOOD BY AUTOMATED COUNT 5.07 10*3/uL 4.50 - 11.00 11/04 Specimen Type: BLOOD No comment entered. Ordering Provider: GEORGIA LUEVANO Report Released Date/Time: Oct 01, 2023 12:05 PM Reporting Lab: [facility] [address] [facility] [address] Performing Lab: [facility]N [facility]ITAL[facility]ETS [address] [address] [place] CBC AND DIFF (AUTO) ERYTHROCYT ES [#/VOLUME] IN BLOOD BY AUTOMATED COUNT 4.11 10*6/uL 4.23 - 5.66 11/04 L Specimen Type: BLOOD No comment entered. Ordering Provider: GEORGIA LUEVANO Report Released Date/Time: Oct 01, 2023 12:05 PM Reporting Lab: [facility] [address] [address] Performing Lab: [facility]OSPITALRPRATTVILLE BAPTIST HOSPITALN [facility]ITALUSE[address] [address] [place] CBC AND DIFF (AUTO) HEMOGLOBIN [MASS/VOLU ME] IN BLOOD 12.6 g/dL 12.8 - 17 11/04 L Specimen Type: BLOOD No comment entered. Ordering Provider: GEORGIA LUEVANO Report Released Date/Time: Oct 01, 2023 12:05 PM Reporting Lab: [facility] [address] [address] Performing Lab: [facility] TRN [facility]ITALUSETS [address] [address] [place] CBC AND DIFF (AUTO) HEMATOCRIT [VOLUME FRACTION] OF BLOOD BY AUTOMATED COUNT 38.3 39.2 - 50.4 11/04 L Specimen Type: BLOOD No comment entered. Ordering Provider: GEORGIA LUEVANO Report Released Date/Time: Oct 01, 2023 12:05 PM Reporting Lab: [facility]ITALUSETS [address] [address] Performing Lab: [facility]OSPITALRPRATTVILLE BAPTIST HOSPITALTRN [facility]OSPITALUSE[address] [address] [place] CBC AND DIFF (AUTO) MCV [ENTITIC VOLUME] BY AUTOMATED COUNT 93.2 fL 82 - 99 11/04 Specimen Type: BLOOD No comment entered. Ordering Provider: GEORGIA LUEVANO Report Released Date/Time: Oct 01, 2023 12:05 PM Reporting Lab: [facility]ITALRL WSTRN [facility]OS[facility]ITALUSETS [facility] [address] [facility] [address] Performing Lab: [facility]ITALRL TRN [facility]ITALUSETS [facility] [address] [facility] [address] [place] CBC AND DIFF (AUTO) MCHC [MASS/VOLU ME] BY AUTOMATED COUNT 32.9 g/dL 30.8 - 35.1 11/04 Specimen Type: BLOOD No comment entered. Ordering Provider: GEORGIA LUEVANO Report Released Date/Time: Oct 01, 2023 12:05 PM Reporting Lab: [facility] [address] [facility] [address] Performing Lab: [facility] HOSPITALRPRATTVILLE BAPTIST HOSPITALTRN [facility]OSPITALUSE[address] [address] [place] CBC AND DIFF (AUTO) PLATELETS [#/VOLUME] IN BLOOD BY AUTOMATED COUNT 220 10*3/uL 140 - 360 11/04 Specimen Type: BLOOD No comment entered. Ordering Provider: GEORGIA LUEVANO Report Released Date/Time: Oct 01, 2023 12:05 PM Reporting Lab: [facility]PITALRPRATTVILLE BAPTIST HOSPITALTRN [facility] [address] [facility] [address] Performing Lab: [facility]ITALRL TRN [facility]ITALUSE[address] [address] [place] CBC AND DIFF (AUTO) ERYTHROCYT E DISTRIBUTI ON WIDTH [RATIO] BY AUTOMATED COUNT 14.1 12.0 - 16.0 11/04 Specimen Type: BLOOD No comment entered. Ordering Provider: GEORGIA LUEVANO Report Released Date/Time: Oct 01, 2023 12:05 PM Reporting Lab: [facility]ITALRL WSTRN [facility]ITALUSETS [address] [address] Performing Lab: [facility]ITALRL TRN [facility]ITALUSE[address] [address] [place] CBC AND DIFF (AUTO) MONOCYTES [#/VOLUME] IN BLOOD BY AUTOMATED COUNT 0.49 10*3/uL 0.30 - 1.10 11/04 Specimen Type: BLOOD No comment entered. Ordering Provider: GEORGIA LUEVANO Report Released Date/Time: Oct 01, 2023 12:05 PM Reporting Lab: [facility] [place] [facility] [address] [facility] [address] Performing Lab: [facility] [place] [facility] [address] [facility] [address] [place] CBC AND DIFF (AUTO) MCH [ENTITIC MASS] BY AUTOMATED COUNT 30.7 pg 26.2 - 32.6 11/04 Specimen Type: BLOOD No comment entered. Ordering Provider: GEORGIA LUEVANO Report Released Date/Time: Oct 01, 2023 12:05 PM Reporting Lab: [facility] [place] [facility] [address] [facility] [address] Performing Lab: [facility] [place] [address] [address] [place] CBC AND DIFF (AUTO) NEUTROPHIL S/100 LEUKOCYTES IN BLOOD BY AUTOMATED COUNT 48.8 43.7 - 75.8 11/04 Specimen Type: BLOOD No comment entered. Ordering Provider: GEORGIA LUEVANO Report Released Date/Time: Oct 01, 2023 12:05 PM Reporting Lab: [facility] [facility] [place] [address] [address] Performing Lab: [facility] [place] [address] [address] [place] CBC AND DIFF (AUTO) LYMPHOCYTE S/100 LEUKOCYTES IN BLOOD BY AUTOMATED COUNT 37.5 14.0 - 42.3 11/04 Specimen Type: BLOOD No comment entered. Ordering Provider: GEORGIA LUEVANO Report Released Date/Time: Oct 01, 2023 12:05 PM Reporting Lab: [facility] [place] [address] [address] Performing Lab: [facility] [place] [address] [address] [place] CBC AND DIFF (AUTO) MONOCYTES/ 100 LEUKOCYTES IN BLOOD BY AUTOMATED COUNT 9.7 5.1 - 13.7 11/04 Specimen Type: BLOOD No comment entered. Ordering Provider: GEORGIA LUEVANO Report Released Date/Time: Oct 01, 2023 12:05 PM Reporting Lab: [facility] [address] [facility] [address] Performing Lab: [facility]ITALUSETS [address] [address] [place] CBC AND DIFF (AUTO) EOSINOPHIL S/100 LEUKOCYTES IN BLOOD BY AUTOMATED COUNT 3.2 0.4 - 6.8 11/04 Specimen Type: BLOOD No comment entered. Ordering Provider: GEORGIA LUEVANO Report Released Date/Time: Oct 01, 2023 12:05 PM Reporting Lab: [facility] [address] [address] Performing Lab: [facility] CNTRPRATTVILLE BAPTIST HOSPITALTRN [facility]ITALUSE[address] [address] [place] CBC AND DIFF (AUTO) BASOPHILS/ 100 LEUKOCYTES IN BLOOD BY AUTOMATED COUNT 0.6 0.1 - 2.0 11/04 Specimen Type: BLOOD No comment entered. Ordering Provider: GEORGIA LUEVANO Report Released Date/Time: Oct 01, 2023 12:05 PM Reporting Lab: [facility] [address] [address] Performing Lab: [facility] [address] [address] [place] CBC AND DIFF (AUTO) NEUTROPHIL S [#/VOLUME] IN BLOOD BY AUTOMATED COUNT 2.48 10*3/uL 2.20 - 7.60 11/04 Specimen Type: BLOOD No comment entered. Ordering Provider: GEORGIA LUEVANO Report Released Date/Time: Oct 01, 2023 12:05 PM Reporting Lab: [facility] [facility] [address] [address] Performing Lab: [facility] [address] [address] [place] CBC AND DIFF (AUTO) LYMPHOCYTE S [#/VOLUME] IN BLOOD BY AUTOMATED COUNT 1.90 10*3/uL 1.00 - 3.20 11/04 Specimen Type: BLOOD No comment entered. Ordering Provider: GEORGIA LUEVANO Report Released Date/Time: Oct 01, 2023 12:05 PM Reporting Lab: [facility]USE[address] [address] Performing Lab: [facility] [address] [place] CBC AND DIFF (AUTO) EOSINOPHIL S [#/VOLUME] IN BLOOD BY AUTOMATED COUNT 0.16 10*3/uL 0.03 - 0.44 11/04 Specimen Type: BLOOD No comment entered. Ordering Provider: GEORGIA LUEVANO Report Released Date/Time: Oct 01, 2023 12:05 PM Reporting Lab: [facility] [address] [address] Performing Lab: [facility]ITAL[facility] [address] [address] [place] CBC AND DIFF (AUTO) BASOPHILS [#/VOLUME] IN BLOOD BY AUTOMATED COUNT 0.03 10*3/uL 0.01 - 0.13 11/04 Specimen Type: BLOOD No comment entered. Ordering Provider: GEORGIA LUEVANO Report Released Date/Time: Oct 01, 2023 12:05 PM Reporting Lab: [facility] [address] [address] Performing Lab: [facility] [address] [place] CBC AND DIFF (AUTO) IMMATURE GRANULOCYT ES/100 LEUKOCYTES IN BLOOD BY AUTOMATED COUNT 0.2 0.0 - 0.7 11/04 Specimen Type: BLOOD No comment entered. Ordering Provider: GEORGIA LUEVANO Report Released Date/Time: Oct 01, 2023 12:05 PM Reporting Lab: [facility] [address] [address] Performing Lab: [facility]TR[facility] [address] [place] CBC AND DIFF (AUTO) IMMATURE GRANULOCYT ES [#/VOLUME] IN BLOOD 0.01 10*3/uL 0.00 - 0.06 11/04 Specimen Type: BLOOD No comment entered. Ordering Provider: GEORGIA LUEVANO Report Released Date/Time: Oct 01, 2023 12:05 PM Reporting Lab: [facility] [address] [address] Performing Lab: [address] [address] [place] HEMOGLOB IN A1C PANEL HEMOGLOBIN [...] 2023 12:05 PM Reporting Lab: [facility] [address] [address] Performing Lab: [address] [address] [place] TSH THYROTROPI N [UNITS/VOL UME] IN SERUM OR PLASMA 1.63 u[IU]/mL 0.35 - 5.00 11/04 Specimen Type: SERUM No comment entered. Ordering Provider: GEORGIA LUEVANO Report Released Date/Time: Oct 01, 2023 12:05 PM Reporting Lab: [facility] [address] [address] Performing Lab: [facility] [address] [address] [place] Vital Signs Combined list of inpatient and outpatient Vital Signs from Department of Defense and Veterans Affairs, ranging from 12 months to all on record, depending upon the facility. Vital Sign Value Date Comments Source SYSTOLIC BLOOD PRESSURE 163 05/05/2024 10:00:43 [place] DIASTOLIC BLOOD PRESSURE 88 05/05/2024 10:00:43 [place] PULSE OXIMETRY 96 05/05/2024 10:00:43 Teresa FONSECA WEIGHT 200 05/05/2024 10:00:43 ELIDA GUAN BMI 30 kg/m2 05/05/2024 10:00:43 [place] GU[facility] PULSE 71 05/05/2024 10:00:43 [place] GUAN SYSTOLIC BLOOD PRESSURE 142 02/01/2024 14:40:00 [place] DIASTOLIC BLOOD PRESSURE 92 02/01/2024 14:40:00 [place] PULSE 68 02/01/2024 14:40:00 ELIDA GUAN Encounters Combined list of: 1) Encounters from Department of Veterans Affairs facilities going backup to the last 18 months, not all VA inpatient encounters are included; 2) Encounters from the Department of [facility] facilities going backup to 280 months. Location Location Details Encounter Type Encounter Number Reason For Visit Attending Provider ADM Date DC Date Status Disposition Source [facility] Encounter [id number] 09/21 [facility] En[facility] [id number] 09/22 [facility] [facility] Encounter [id number] 09/30 [facility] OFFICE O/P NEW MOD 45 MIN [id number] Diagnos is: ICD-10- CM I10 Essenti al (primar y) hyperte nsion STELEA,CAR MEN F 09/30 [place] [facility] En[facility] [id number] 09/30 [facility] En[facility] [id number] 09/30 [facility] En[facility] [id number] 09/30 [facility] Encounter [id number] 10/07 [facility] UNLISTED SPEC DERM SVC/PX [id number] Diagnos is: ICD-10- CM Z13.89 Encount er for screeni ng for other disorde r Tawanna TOMAS 10/14 [facility] [facility] Outpatient Encounter [id number] 10/14 [facility] Outpatient Encounter [id number] Diagnos is: ICD-10- CM L82.1 Other seborrh eic keratos is LEANNE BRADEN 10/17 [facility] Encounter [id number] 10/17 [facility] Encounter [id number] 10/18 [facility] [place] [facility] Encounter [id number] 10/19 [facility] OFFICE O/P EST LOW 20 MIN [id number] Diagnos is: ICD-10- CM I10 Essenti al (primar y) hyperte nsion STELEA,CAR MEN F 11/04 [place] [facility] Encounter [id number] 11/15 [facility] En[facility] [id number] 11/24 [facility] [place] [facility] [place] OFFICE O/P EST MOD 30 MIN [id number] Diagnos is: ICD-10- CM I10 Essenti al (primar y) hyperte camila LUEVANOCAR LEXY F 01/02 [place] OFF/OP EST NOVEMBER X REQ PHY/QHP [id number] Diagnos is: ICD-10- CM I10 Essenti al (primar y) hyperte WILL Tran 01/31 [place] [facility] Outpatient Encounter [id number] [facility] [place] [facility] [place] OFFICE O/P EST MOD 30 MIN [id number] Diagnos is: ICD-10- CM I10 Essenti al (primar y) hyperte ROLAND Kahn F 05/05 [place] [facility] Out[facility] Encounter [id number] 07/21 [facility] En[facility] [id number] 07/25 [facility] Encounter [id number] 08/10 [facility] Outpatient Encounter [id number] [facility] [facility] Social History Combined list of available smoking, tobacco, and other social history from Department of Defense and Veterans Affairs facilities. Social History Type Response Date Comment Sourc e Tobacco smoking status [facility] VA-TOBACCO NEVER USED 10/01/2023 [facility] [place] [facility] History of tobacco use VA-TOBACCO FORMER USER 07/12/2018 [facility] History of tobacco use LIFETIME NON-TOBACCO USER 07/13/2017 [facility] Advance Directives List of completed, amended, or rescinded Advance Directives on record at Department of Veterans Affairs facilities. An actual copy of the Directive is not included. Date Advance Directive Provider Source 10/15/2023 [facility]ANCE [facility]
--- OUTSIDE RECORDS SUMMARY | 2025-03-09 09:53 | XMS_ITS ---
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 The basal cell was biopsied 10/30/24. The growth is asymptomatic and moderate in severity. He has had this growth for months. Pertinent history includes: sunburns. Pertinent negatives include: no previous history of non-melanoma skin cancer, no history of immunosuppression, and no history of organ transplantation. This skin lesion has been treated with: biopsy. He presents today for: evaluation and management. Medications No data Problems Problem Code Type Status Date of Diagnosis Da te of Resolution Basal cell carcinoma of nose (disorder) 838143099(SNO MED) Diagnosis active 03/05/2025 Arthritis (disorder) 3326750(SNOME D) Problem active Increased blood pressure (finding) 34142755(SNOM ED) Problem active Results No data Encounters Service provided at [facility], [address] [place] [address], [address], [place], [place] [id number]. Office phonenumber is [phone]. Office fax number is [phone]. 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 (C44.311) [facility] 03/05/2025 14:45:00 [facility] [address] Reason For Referral I saw Edilson Gileltte in the office on March 05, 2025.Below is a summary of our visit:Mixed Nodular and Micronodular Basal Cell Carcinoma: appropriately healing biopsy site located on the left nasalroot.Plan: Consultation for Mohs Surgery.My impression and plan was the followin.Mixed Nodular and Micronodular Basal Cell Carcinoma, Status: Inadequately ControlledConsultation for Mohs Surgery Procedures Procedure Date No Procedure Data Review Of Systems Provider reviewed on Mar 05, 2025.A focused review of systems was performed including Allergic / Immunologic, Cardiovascular, Constitutional / Symptom, ENT and Mouth, Eyes, Hematologic / Lymphatic, Integumentary, Neurological, Psychiatric, and Respiratory.No Problems With Healing, No Problems With Scarring (hypertrophic Or Keloid), No Problems With Bleeding, No Immunosuppression, No Chest Pain, No Fever Or Chills, No Sore Throat, No Blurry Vision, No Headaches, No Seizures, No Shortness Of Breath, And No Anxiety. Assessment 1.Mixed Nodular and Micronodular Basal Cell Carcinoma, Status: Inadequately ControlledConsultation for Mohs Surgery Plan of Care No data Instructions No Data Social History Code Activity Start Date End Date [id number] (SNOMED) Never smoker Sex male Sexual orientation Don't Know Gender identity Unspecified Vital Signs No data
[2025-03-09 10:03] VITALS: BP 124/66; PULSE 78; TEMP 36.8; O2SAT 97
--- NOTE | 2025-03-09 10:03 | MHC.OFFWIV ---
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 - The condition started last night with redness and peeling, progressing to a crusted yellow appearance. - The patient reports a burning sensation and itching associated with the affected area. - No vesicles or fluid-filled bubbles were observed. - The patient has not used any new lotions or creams recently. - The patient recently started using a new shaver Physical Exam General: Cooperative, healthy appearing, comfortable, no acute distress and well developed Orientation: Patient oriented x3 Limitations: No limitations Head: Normal to inspection Ears: Hearing grossly normal bilaterally Nose: Normal External nose present Face and sinus: Normal facial exam Eyes: Appearance normal, both eyes and all related structures Neck: Normal visual inspection and Yes full ROM Respiratory: Normal respiratory effort and able to speak in complete sentences. Skin: central forehead with erythema and honey colored crusts Neuro: Patient oriented x3 Extremities: Normal to inspection PFSH Medical History (Updated 03/09/25 @ 10:39 by Rosa Keller PA-C) Chest pain Need for antibiotic prophylaxis for dental procedure Elevated vitamin B12 level Elevated fasting glucose Constipation Screening for colorectal cancer Anemia History of right inguinal hernia Anxiety and depression Hyperlipidemia Essential hypertension Surgical History Hx of colonoscopy Hx of inguinal herniorrhaphy History of appendectomy History of left knee replacement Family History Father Congenital heart disease Acute myocardial infarction Mother Systemic lupus erythematosus Osteoporosis Social History Housing: House Patient Tobacco Use Status: Never used Tobacco e-Cigarette/Vaping Use: Never Used service: Yes Current occupational status: retired Cognitive needs: No Hearing needs: No Vision needs: Yes Review of Systems Const All systems reviewed & are unremarkable except as noted in HPI and below Physical Exam Vital Signs: Last Vital Signs Temp 98.3 F 03/09/25 10:03 Pulse 78 03/09/25 10:03 BP 124/66 03/09/25 10:03 Pulse Ox 97 03/09/25 10:03 Oxygen Delivery Method Room Air 03/09/25 10:03 BMI result Body Mass Index 30.0 Assessment & Plan Assessment & Plan (1) Impetigo: Code(s): L01.00 - Impetigo, unspecified Plan: Plan - Initiate treatment with mupirocin ointment applied twice daily for suspected staphylococcal skin infection. - If no improvement is observed within 2-3 days, switch to triamcinolone cream for potential contact dermatitis. - If neither treatment is effective, consider referral to a plastics tooling engineer for further evaluation. Patient was informed and verbally consented to the use of an ambient scribe for clinic note documentation during this visit. Medications: New mupirocin 2% 1 appl topical TID 22 grams 0RF triamcinolone acetonide 0.1% 1 appl topical BID 30 grams 0RF Coding Level of Care Code Est Pt Level 3 (01764) Diagnoses Impetigo L01.00
== END 2025-03-09 10:46 | disposition home or self-care (01) ==
PROVIDERS: PCP Internal Medicine; Visit Provider Physician Assistant
DX: L01.00 Impetigo, unspecified (principal)

== ENCOUNTER → 2025-03-09 09:44 | Outpatient (BNVA) | payer MEDICARE, SELFPAY | PROVIDERS: PCP Internal Medicine; Visit Provider Physician Assistant | DX: L01.00 Impetigo, unspecified (principal) | CPT/HCPCS: 99212 ==

== ENCOUNTER 2025-04-30 06:40 | Day surgery (SDC) | payer MEDICARE, SELFPAY ==
[2025-04-30 07:03] VITALS: BMI 29.5
[2025-04-30 07:14] VITALS: BP 158/89; PULSE 76; RESP 16; TEMP 37.2; O2SAT 98
[2025-04-30] MEDS: Lactated Ringers 1,000 ML 100 ML IVCONT (07:16)
--- NOTE | 2025-04-30 07:43 | HO.ANESPROP2 ---
HPI - Anesthesia Eval Consult details Narrative: 74 y.o. with PMH HTN for colonoscopy PMFSH Active Problems Active Problems: All Active Problems (Updated 03/09/25 @ 10:39 by Rosa Keller PA-C) Impetigo (Acute) Chest pain (Acute) Need for antibiotic prophylaxis for dental procedure (Acute) Elevated vitamin B12 level (Acute) Elevated fasting glucose (Acute) Constipation (Acute) Screening for colorectal cancer (Acute) Anemia (Acute) Anxiety and depression (Acute) Hyperlipidemia (Acute) Essential hypertension (Acute) Past Medical History Medical History (Updated 03/09/25 @ 10:39 by Rosa Keller PA-C) Chest pain Need for antibiotic prophylaxis for dental procedure Elevated vitamin B12 level Elevated fasting glucose Constipation Screening for colorectal cancer Anemia History of right inguinal hernia Anxiety and depression Hyperlipidemia Essential hypertension Functional capacity: independent ambulation Narrative: able to walk 1 flight of stars without SOB Family History Family History Father Congenital heart disease Acute myocardial infarction Mother Systemic lupus erythematosus Osteoporosis Family history of problems with anesthesia: No Surgical History Surgical History Hx of colonoscopy Hx of inguinal herniorrhaphy History of appendectomy History of left knee replacement History of Problems with Anesthesia: No Social History Social History Housing: House Patient Tobacco Use Status: Never used Tobacco e-Cigarette/Vaping Use: Never Used Use of substances other than those prescribed or required for medical reasons: No Advance Directives: No Advance Directives Information Provided: Yes service: Yes Current occupational status: retired Cognitive needs: No Hearing needs: No Vision needs: Yes Meds Allergies Allergy/AdvReac Type Severity Reaction Status Date / Time No Known Allergies Allergy Verified 03/09/25 10:26 Active Medications: Current Medications Lactated Ringer's (Lr) 1,000 mls @ 100 mls/hr IVCONT .Q10H DORA Last Admin: 04/30/25 07:16 Dose: 100 mls/hr Home Medications ?Medication ?Instructions ?Recorded ?Confirmed ?Last Taken ?Type ascorbic acid (vitamin C) 500 mg 500 mg PO DAILY 02/02/24 04/26/25 Unknown History tablet calcium 250 mg-magnesium 40 mg-D3 1 tab PO DAILY 02/02/24 04/26/25 Unknown History 125 unit-zinc 3.26sq-ynh-raom tablet cholecalciferol (vitamin D3) 25 25 mcg PO DAILY 02/02/24 04/26/25 Unknown History mcg (1,000 unit) capsule collagen,hydrolysate 500 mg-biotin 1 cap PO DAILY 02/06/25 04/26/25 Unknown History 800 mcg-ascorbic acid 50 mg capsule (Collagen 1500 Plus C) ferrous sulfate 325 mg (65 mg 325 mg PO DAILY 02/06/25 04/26/25 Unknown History iron) tablet (Feosol) omega 3-qfs-zzp-fish oil 1,000 mg 1 cap PO DAILY 02/06/25 04/26/25 Unknown History (120 mg-180 mg) capsule (Fish Oil) Exam Height,Weight and Vital Signs: Height 5 ft 9 in Weight 199 lb 8.293 oz Last Vital Signs Temp 98.9 F 04/30/25 07:14 Pulse 76 04/30/25 07:14 Resp 16 04/30/25 07:14 BP 158/89 H 04/30/25 07:14 Pulse Ox 98 04/30/25 07:14 O2 Del Method Room Air 04/30/25 07:14 Airway Mallampati Class: IV TM Dist: >3cm Loose/Missing/Broken Teeth: No Heart: RRR Lungs: CTA Assessment and Plan Assessment Anesthesia Assessment: Anesthesia Plan Discussed and Chart Reviewed Final Anesthetic Review Family History of Problems with Anesthesia: No History of Problems with Anesthesia: No NPO: Yes ASA Class: II Patient Risk: Low Procedure Risk: Low Anesthetic Plan Anesthetic Plan: TIVA Disposition: Standard PACU
--- NOTE | 2025-04-30 08:30 | P.HPSUR_ITS ---
Pre-Procedural Eval Section A - 24 Hr Update-Section A only Date of Service: 04/30/25 Section B - Complete if H&P > 30 days Chief Complaint: screening,anemia Relevant Family History (Specify if Yes): No Relevant Social History: None Present Medications: see Short Stay Collaborative assessment Medical History: Significant History ( Elevated fasting glucose Constipation Screening for colorectal cancer Anemia History of right inguinal hernia Anxiety and depression Hyperlipidemia Essential hypertension) History of Previous Operations: Relevant previous surgery/procedure and date(s) ( Hx of colonoscopy Hx of inguinal herniorrhaphy History of appendectomy History of left knee replacement) Allergies: Allergies Allergy/AdvReac Type Severity Reaction Status Date / Time No Known Allergies Allergy Verified 03/09/25 10:26 Review of Systems Sugical H&P ROS: Negative: Constitution, Cardiovascular, Respiratory, Neurological, Psychiatric, Hem-Onc, Allergic/Immunologic, Gastrointestinal, Genitourinary, Musculoskeletal, Integumentary, Endocrine and Eyes/Ears/No se/Throat Exam Surgical H&P Exam: Normal: HEENT, Normal: Heart, Normal: Lungs, Normal: Extremities, Normal: Abdomen, Normal: Skin and Normal: Neurological Plan Diagnosis/Plan: Unchanged I have reviewed the history and physical and performed a pertinent physical examination on my patient. No changes have occurred unless specified. Time Spent With Patient Time: Total time managing care of this patient today ____ minutes.
--- NOTE | 2025-04-30 08:55 | P.OPN-COLO_ITS ---
Colonoscopy Operative Note Operative Note Date of Service: 04/30/25 Narrative: Operative Information Procedure Description: Colonoscopy Indication: anemia Anesthesia: MAC COLONOSCOPY Instrument: Olympus variable stiffness pediatric scope 190L Colonoscopy Monitoring: Vital signs and clinical assessment, continuous EKG monitoring, Pulse oximetry, Carbon Dioxide monitoring and blood pressure monitoring were done throughout the procedure. Colon withdrawal time was 12 minutes. Procedure: The patient was placed in the left lateral decubitis position and pre-procedure medications were administered. After a digital rectal examination of the ano-rectum, the video colonoscope was inserted into the rectum and advanced through the colon to the cecum/TI. The colonoscope was slowly withdrawn in a retrograde panoramic fashion and the colon mucosa was carefully examined including a retroflexed view of the rectum. Findings and interventions are described below. Procedure Difficulty: easy Findings: Terminal Ileum-normal Cecum:normal Ascending Colon: 4-5 mm sessile polyp removed with cold forceps Transverse Colon -normal Descending Colon: x 2 sessile polyps 8-9 mm removed with cold snare Sigmoid Colon: moderate diverticulosis, 10 mm sessile polyp removed with cold s nare Rectum: Retroflexion with small internal hemorrhoids seen, grade I Anorectum - normal Intervention: cold snare, cold forceps Colon preparation: [place] Bowel Preparation Scale Right colon; 2 Transverse colon: 2 Left colon; 2 (0 = Unprepared colon segment with mucosa not seen due to solid stool that cannot be cleared. 1 = Portion of mucosa of the colon segment seen, but other areas of the colon segment not well seen due to staining, residual stool and/or opaque liquid. 2 = Minor amount of residual staining, small fragments of stool and/or opaque liquid, but mucosa of colon segment seen well. 3 = Entire mucosa of colon segment seen well with no residual staining, small fragments of stool or opaque liquid) Impression and Post Procedure Diagnosis: diverticulosis colon polyps x 4 internal hemorrhoids Plan: High fiber diet leaflet Avoid straining at stool, epsom salts and sitz bath, anusol supps or cream Repeat Colonoscopy in 3-4 years due to polyps or earlier if clinically indicated consider EGD if ongoing concerns for anemia, check celiac serology Above findings were reviewed with the patient and relevant handouts were provided if indicated.
[2025-04-30 09:00] VITALS: BP 112/73; PULSE 61; RESP 16; TEMP 36.1; O2SAT 98
[2025-04-30 09:15] VITALS: BP 139/82; PULSE 68; RESP 18; TEMP 36.6; O2SAT 99
== END 2025-04-30 09:50 | disposition home or self-care (01) ==
PROVIDERS: PCP Internal Medicine; Visit Provider Internal Medicine Gastroenterology
PROC: 0DJD8ZZ Inspection of Lower Intestinal Tract, Via Natural or Artificial Opening Endoscopic (ICD-10-PCS; CPT 45378; principal; 2025-04-30 08:30)
DX: D64.9 Anemia, unspecified (principal); K57.30 Diverticulosis of large intestine without perforation or abscess without bleeding; D12.2 Benign neoplasm of ascending colon; D12.4 Benign neoplasm of descending colon; D12.5 Benign neoplasm of sigmoid colon; K64.0 First degree hemorrhoids
CPT/HCPCS: 45380; 88305; J2003; J2704

== ENCOUNTER → 2025-04-30 06:40 | Outpatient (BNV) | payer MEDICARE, SELFPAY | PROVIDERS: PCP Internal Medicine; Visit Provider Internal Medicine Gastroenterology | DX: D64.9 Anemia, unspecified (principal); D12.2 Benign neoplasm of ascending colon; D12.4 Benign neoplasm of descending colon; D12.5 Benign neoplasm of sigmoid colon; K57.30 Diverticulosis of large intestine without perforation or abscess without bleeding; K64.0 First degree hemorrhoids | CPT/HCPCS: 45380; 45385 ==

== ENCOUNTER 2025-05-21 13:21 | Outpatient (AMB) | payer MEDICARE, SELFPAY ==
--- NOTE | 2025-05-21 13:24 | A.OFFPC_ITS ---
Vital Signs 05/21/25 13:35 Height 5 ft 9 in Weight 204 lb BMI 30.1 BP 130/70 Blood Pressure Location Rt brachial Position Sitting Respiration 16 Pulse 72 Pulse Source Pulse Oximeter Temp 98.2 F Temp Source Oral Pulse Oximetry (%) 97 Oxygen Delivery Method Room Air Intake Visit Reasons: Lt lower eyelid ectropion repair 05/31 Intake Note: Pt is here today for Lt lower eyelid ectropion repair on 05/31/[address] Li/ Dr. Cesar Allergies No Known Allergies Allergy (Verified 05/21/25 13:47) Medication List - Last Reconciled 05/21/25 by Ana Maria Ga MD amlodipine 5 mg PO DAILY ascorbic acid (vitamin C) 500 mg PO DAILY atorvastatin 20 mg PO DAILY calcium and-oqv-T6-Zn-copper tapper-la 250 mg-40 mg- 125 unit-3.75mg 1 tab PO DAILY cholecalciferol (vitamin D3) 25 mcg PO DAILY mwiyjbqz-kgjqux-vvoudpnu acid 500 mg-800 mcg- 50 mg (Collagen 1500 Plus C) 1 cap PO DAILY ferrous sulfate (Feosol) 325 mg PO DAILY mupirocin 2% 1 appl topical TID omega 6-mkp-erf-fish oil 1,000 (120-180) mg (Fish Oil) 1 cap PO DAILY polyethylene glycol 3350 (Miralax) 238 grams PO ONCE 1 day sertraline 50 mg PO DAILY triamcinolone acetonide 0.1% 1 appl topical BID Tobacco use date assessed: 05/21/25 Fall risk assessment: No Falls in past year Last assessed Fall Risk: 05/21/25 Dental Screening Dental Screen Date: 05/21/25 Did you have a dental visit in the last 12 months?: Yes Did you have a dental problem in the last 6 months where you did not have access to dental care?: Yes Was dental information given to patient?: Patient has dentist HPI Lt lower eyelid ectropion repair 05/31 HPI Details 74 year-old male with past medical histo ry significant for anemia, hypertension, hyperlipidemia, seasonal allergies, and anxiety /depression, and basal cell carcinoma of eyelid including canthus OS, here today for preoperative exam for Mohs' reconstruction left nasal root and possible ectropion repair left lower lid OS scheduled for 05/31/2025, requested by Dr. Li. Blood pressure stable and controlled on amlodipine 5 mg daily, and lipids are well controlled on atorvastatin 20 mg taken daily He has been feeling well, with no other complaints at present time. Currently not on any blood thinners. [facility] Medical History (Updated 05/23/25 @ 17:28 by Ana Maria Ga MD) Need for antibiotic prophylaxis for dental procedure Anemia History of right inguinal hernia Anxiety and depression Hyperlipidemia Essential hypertension Surgical History Hx of colonoscopy Hx of inguinal herniorrhaphy History of appendectomy History of left knee replacement Family History Father Congenital heart disease Acute myocardial infarction Mother Systemic lupus erythematosus Osteoporosis Social History Housing: House Patient Tobacco Use Status: Never used Tobacco e-Cigarette/Vaping Use: Never Used service: Yes Current occupational status: retired Cognitive needs: No Hearing needs: No Vision needs: Yes Questionnaire PHQ-9 Over the last 2 weeks, how often have you been bothered by any of the following problems? 1. Little interest or pleasure in doing things: not at all 2. Feeling down, depressed, or hopeless: not at all 3. Trouble falling or staying asleep, or sleeping too much: not at all 4. Feeling tired or having little energy: not at all 5. Poor appetite or overeating: not at all 6. Feeling bad about yourself - or that you are a failure or have let yourself or your family down: not at all 7. Trouble concentrating on things, such as reading the newspaper or watching television: not at all 8. Moving or speaking so slowly that other people could have noticed. Or the opposite - being so fidgety or restless that you have been moving around a lot more than usual: not at all 9. Thoughts that you would be better off or of hurting yourself in some way: not at all Total score: 0 Depression Screening Interpretation: Negative Depression Screening Done: Yes Source: Developed by Drs. Akira Dominguez, Cristiane Landin, Michael Velez and colleagues, with an educational bo from [employer]. Thrive Questionnaire Date Thrive assessed: 09/05/24 I am a: Patient What is your living situation today?: I have a steady place to live Within the past 12 months, did the food you bought not last and you didn't have the money to get more?: Never true Within the past 12 months, did you worry whether your food would run out before you got money to buy more?: Never true Do you have trouble paying for medicines?: No Do you have trouble getting transportation to medical appointments?: No Do you have trouble paying your heating and electricity bill?: No Do you have trouble taking care of your child, family member or friend?: No Do you have trouble with day-to-day activities such as bathing, preparing meals, shopping, managing finances, etc.?: No Are you currently unemployed and looking for a job?: No Are you interested in more education?: No Please select the resources that you would like help with: None Currently or been in a relationship where the following occur: I choose not to answer THRIVE Score: 0 AUDIT C Alcohol Use Questionnaire (AUDIT-C) 1. How often do you have a drink containing alcohol?: Never Total Score: 0 DEMI-7 AMB Questionnaire DEMI-7 Date DEMI - 7 assessed: 09/05/24 Source: Developed by Drs. Akira Dominguez, Cristiane Landin, Michael Velez and colleagues, with an educational bo from [employer]. Review of Systems Const Denies body aches, Denies fever(s), Denies headache(s) and Denies weakness Eyes Denies change in vision ENT Denies dizziness, Denies headache(s), Denies nasal congestion, Denies nasal discharge, Reports disequilibrium and Denies sore throat Card Denies chest pain, Denies lightheadedness, Denies palpitations and Denies dyspnea Resp Denies chest congestion, Denies cough, Denies dyspnea and Denies wheezing GI Denies abdominal pain, Denies change in bowel habits and Denies heartburn Denies hematuria, Denies difficulty urinating, Denies dysuria, Denies urinary frequency and Denies urinary urgency Musc Reports no additional complaints Skin/Breast Reports as per HPI Neuro Denies dizziness, Denies headache(s), Reports disequilibrium and Denies weakness Psych Reports no additional complaints Endo Denies polydipsia, Denies polyuria and Denies palpitations [place]/Lymph Denies easy bruising Aller/Immun Denies seasonal rhinorrhea and Denies wheezing Physical exam (Primary Care) Vital Signs: Last Vital Signs Temp 98.2 F 05/21/25 13:35 Pulse 72 05/21/25 13:35 Resp 16 05/21/25 13:35 BP 130/70 05/21/25 13:35 Pulse Ox 97 05/21/25 13:35 Oxygen Delivery Method Room Air 05/21/25 13:35 BMI result Body Mass Index 30.1 Tobacco/Smoking Status: Tobacco use Status Tobacco use date assessed 05/21/25 05/21/25 13:33 Patient Tobacco Use Status Never used Tobacco 05/21/25 13:24 e-Cigarette/Vaping Use Never Used 05/21/25 13:24 PHQ-9: PHQ-9 Score PHQ-9: Total score 0 05/23/25 17:09 Depression Screening Interpretation: Negative Thrive Assessment: Date of Thrive Assessment Date Thrive assessed 09/05/24 05/21/25 13:24 Currently or been in a relationship where the following occur: I choose not to answer Const General: comfortable, no acute distress and alert Orientation/consciousness: patient oriented x3 HENMT Head: Yes normocephalic General nose exam: Normal external nose present Face and sinus: Yes face symmetric Mouth: Normal oral and palatal mucosa present, oropharynx normal and moist mucous membranes Eyes Other: Ectropion OS and lesion inner canthus OS Conjunctivae: conjunctivae normal Sclerae: sclerae normal Pupils: Equal, round and reactive pupils present EOM: EOMs intact bilaterally Neck Neck: Yes full ROM, Yes no lymphadenopathy and Yes supple Resp Effort & Inspection: normal respiratory effort and able to speak in complete sentences Auscultation: clear to auscultation bilaterally Cardio Rate: regular rate Rhythm: regular rhythm Heart sounds: S1 normal heart sound present and S2 normal heart sound present GI Palpation (GI): Soft to palpation, nontender and no masses Auscultation: normal bowel sounds Male General Exam: Yes normal external exam Back/Spine/Pelvis Back: No back tenderness Skin Other: Lesion inner canthus left eye Neuro General: patient oriented x3, gait normal, tone normal, moves all extremities, Normal light touch and pain sensation and no focal motor deficits Cranial nerves: Yes CN's II-XII intact bilaterally and Yes Equal, round and reactive pupils present Cognition (Neuro): normal cognition Extrem General: Yes full ROM, Yes no joint enlargement, Yes no clubbing, cyanosis or edema and Yes no calf tenderness Psych Appearance: grossly normal and well kempt Mental Status: mental status grossly normal Speech and movement: Normal speech and movement present Affect: normal affect Results Reviewed Results Reviewed: Name: Edilson Gillette Age/Sex: 74/M : 1950 Unit#: [id number] Attend Dr: Ana Maria Ga MD Re02/05/25 Status: DEP [facility]F [facility] Disch: SPEC : [id number] OSEAS: 02/05/25 STATUS: COMP REQ : [id number] RECD: 02/05/25-[address]: Ana Maria Ga MD COMP: 02/05/25 ENTERED: 02/05/[address]: ORDERED: Met Prof Fast, IRON PROF, AST, ALT, Lipid Panel, Vitamin D 25-OH Test Result Flag Reference Sodium 145 135-145 mmol/L Potassium 4.3 3.3-5.1 mmol/L CL 111 H 96-108 mmol/L CO2 25 22-29 mmol/L Gap 13 12-20 BUN 14 9-16 mg/dL Creat 1.07 0.5-1.4 mg/dL eGFR > 60 Chronic Kidney Disease: Estimated GFR < 60 mL/min/1.7 3m2 Severe Kidney Disease: Estimated GFR < 15 mL/min/1.73m2 FBS 114 H 60-99 mg/dL A fasting glucose from 100-125 mg/dl is considered impaired (pre-diabetes). CA 9.9 8.4-10.2 mg/dL Iron 58 45-160 mcg/dL TIBC 241 228-428 mcg/dL Saturation 24 15-50 % UIBC 183 ug/dL AST (GOT) 32 5-37 U/L ALT (GPT) 39 0-40 U/L Triglyceride 112 <150 mg/dL Desirable Triglyceride: less than 150 mg/dL Borderline High Triglyceride 150-199 mg/dL High Triglyceride: 200-499 mg/dL Very High Triglyceride: greater than or equal to 5OO mg/dL Cholesterol 110 <200 mg/dL Desirable Cholesterol: less than 200 mg/dL Borderline High Cholesterol: 200-239 mg/dL High Cholesterol: greater than 239 mg/dL LDL Calculated 55 <100 mg/dL Desirable LDL: less than 100 mg/dL Near Optimal/Above Optimal LDL: 110-129 mg/dL Borderline High LDL: 130-159 mg/dL High LDL: 160-189 mg/dL Very High LDL: greater than or equal to 190 mg/dL HDL 33 L >40 mg/dL Desirable HDL: greater than 40 mg/dL Note: This HDL assay may give artificially low results in patients with liver disease. Vitamin D 25-OH 44.1 >30 ng/mL Health Based Reference Values* < 20 ng/mL Deficient 20-30 ng/mL Insufficient > 30 ng/mL Sufficient Name: Eidlson Gillette Age/Sex: 74/M : 1950 Unit#: [id number] Attend Dr: Ana Maria Ga MD Re02/05/25 Status: DEP REF Location: [facility] Disch: SPEC : [id number] OSEAS: 02/05/25 STATUS: COMP REQ : [id number] RECD: 02/05/[address]: Ana Maria Ga MD COMP: 02/05/25 ENTERED: 02/05/[address] [facility] [address]: ORDERED: CBC Auto Diff Test Result Flag Reference WBC 5.7 4.8-10.8 X10*3/uL RBC 4.17 L 4.60-5.80 X10*6/uL HGB 13.0 L 14.0-18.0 g/dl HCT 39.4 L 42.0-52.0 % MCV 94.5 80.0-98.0 fL MCH 31.2 27.0-33.0 pg MCHC 33.0 31.0-36.0 g/dl RDW 14.5 11.0-16.0 % PLT 237 160-400 X10*3/uL MPV 10.3 9.4-12.4 fL Neut Pct Auto 40.0 L 45-73 % ImGran Pct Auto 0.2 0.0-0.4 % Lymp Pct Auto 45.8 H 20-40 % [place] Pct Auto 10.1 2-11 % Eos Pct Auto 3.4 0-4 % Baso Pct Auto 0.5 0-2 % NRBC Pct Auto 0.0 0.0-0.2 /100WBC ANC Neut Abs # 2.3 2.0-8.3 x10*3/uL ImGran Abs Auto 0.01 0.00-0.03 X10*3 /uL Lymph Abs Auto 2.6 1.2-4.9 X10*3/uL [place] Abs Auto 0.6 0.1-1.2 X10*3/uL Eos Abs Auto 0.2 0.0-0.4 X10*3/uL Baso Abs Auto 0.0 0.0-0.2 X10*3/uL NRBC Abs Auto 0.000 0.0-0.012 X10*3/uL Coding Level of Care Code Est Pt Level 4 (66338) Complex EM visit Add On G2211 Diagnoses Preoperative examination Z01.818 Essential hypertension I10 Mixed hyperlipidemia E78.2 Hyperlipidemia type: mixed hyperlipidemia Anemia, unspecified type D64.9 Anemia type: unspecified type Basal cell carcinoma (BCC) of skin of left upper eyelid including canthus C44.1191 Eyelid: upper Ectropion of left lower eyelid, unspecified ectropion type H02.105 Ectropion type: unspecified Eyelid: lower Assessment & Plan Assessment & Plan (1) Preoperative examination: Code(s): Z01.818 - Encounter for other preprocedural examination Plan: 74 year old male here for pre-operative clearance for Mohs surgery with ectropion repair OS on 05/31/2025, requested by Dr. Li. He has hypertension and dyslipidemia, stable and controlled on present treatment . Has anemia currently on ferrous sulfate 325 mg daily, no active bleeding noted , patient is not on any blood thinners. Preoperative examination is unremarkable. He has a low cardiac risk index for proposed surgery . (2) Essential hypertension: Code(s): I10 - Essential (primary) hypertension Category: Medical Plan: Blood pressure stable and controlled on amlodipine 5 mg daily (3) Hyperlipidemia: Code(s): E78.5 - Hyperlipidemia, unspecified Category: Medical Qualifiers: Hyperlipidemia type: mixed hyperlipidemia Qualified Code(s): E78.2 - Mixed hyperlipidemia Plan: Fasting lipids are within normal limits, continued on atorvastatin 20 mg daily and [place] 3 fatty acid supplements 1 capsule daily (4) Anemia: Code(s): D64.9 - Anemia, unspecified Category: Medical Qualifiers: Anemia type: unspecified type Qualified Code(s): D64.9 - Anemia, unspecified Plan: Continued on ferrous sulfate 325 mg daily (5) Basal cell carcinoma of skin of left eyelid, including canthus: Code(s): C44.111 - Basal cell carcinoma of skin of unspecified eyelid, including canthus Category: Medical Qualifiers: Eyelid: upper Qualified Code(s): C44.1191 - Basal cell carcinoma of skin of left upper eyelid, including canthus Plan: Scheduled for Mohs surgery on 05/31/[address] Li (6) Ectropion of left eye: Code(s): H02.106 - Unspecified ectropion of left eye, unspecified eyelid Category: Medical Qualifiers: Ectropion type: unspecified Eyelid: lower Qualified Code(s): H02.105 - Unspecified ectropion of left lower eyelid Plan: Scheduled for entropion repair on 05/31/2025
[2025-05-21 13:35] VITALS: BP 130/70; PULSE 72; RESP 16; TEMP 36.8; O2SAT 97; BMI 30.1
== END 2025-05-21 14:01 | disposition home or self-care (01) ==
LOC: HO.HMCC 13:22
PROVIDERS: Visit Provider Internal Medicine
DX: Z01.818 Encounter for other preprocedural examination (principal); I10 Essential (primary) hypertension; E78.2 Mixed hyperlipidemia; D64.9 Anemia, unspecified; C44.1191 Basal cell carcinoma of skin of left upper eyelid, including canthus; H02.105 Unspecified ectropion of left lower eyelid

== ENCOUNTER → 2025-05-21 13:21 | Outpatient (BNVA) | payer MEDICARE, SELFPAY | PROVIDERS: Visit Provider Internal Medicine | DX: Z01.818 Encounter for other preprocedural examination (principal); I10 Essential (primary) hypertension; E78.2 Mixed hyperlipidemia; D64.9 Anemia, unspecified; C44.1191 Basal cell carcinoma of skin of left upper eyelid, including canthus; H02.105 Unspecified ectropion of left lower eyelid | CPT/HCPCS: 99212 ==